=== PATIENT | male | born 1945 | race Caucasian/White ===

== ENCOUNTER 2022-09-26 18:34 | Emergency (ER) | payer MEDICARE, BC, SELFPAY ==
[2022-09-26 18:38] VITALS: BP 155/79; PULSE 72; RESP 16; TEMP 35.9; O2SAT 98; BMI 19.4
--- NOTE | 2022-09-26 18:50 | ED_ITS ---
HPI - Abdominal Pain General Time Seen by Provider: 18:50 Date Seen: 09/26/22 Chief Complaint: Abdominal Pain Stated Complaint: Abdominal Pain Time Seen by Provider: 09/26/22 18:50 Source: patient, RN notes reviewed and old records reviewed Mode of arrival: ambulatory Limitations: no limitations History of Present Illness HPI narrative: Mr. Josh aguilar is a very pleasant 77-year-old gentleman with a history of diverticulitis status post sigmoid removal, chronic anticoagulation with Xarelto, history of small intestinal bacterial overgrowth, who comes to the [facility] room for evaluation regarding abdominal pain. Patient notes that over the last 3-4 weeks he is experiencing 6-8 hours of epigastric and abdominal pain every 2-3 days. He states that this is associated with nausea but is not associated with any diarrhea. He has had an 8-10 lb weight loss in the past few months and has not tried to do that. He notes that he does not really have much of an appetite although he can eat but states when he eats too much it seems to flare the symptoms. The type of food he eats does not seem to matter. He is currently on omeprazole daily. He has not noticed any blood in his stool nor has he experienced any fever or chills. The pain does not radiate and he has not taken anything for pain at this time. One year ago patient develops nocturnal diarrhea that was fairly significant and was seen at the [facility] and subsequently [facility]. He underwent many tests and was diagnosed with small intestinal bacterial overgrowth. He was placed on an antibiotic for approximately 10 days in this did seem to help. He has been okay for the past 6 months. He had been tested for lactose intolerance as well as gluten sensitivity and this was negative. He has not seen his primary doctor for this. Related Data Allergies Allergy/AdvReac Type Severity Reaction Status Date / Time oxycodone AdvReac Intermediate Nausea Uncoded 09/26/22 18:44 Review of Systems Status of ROS Reports: 10 or more systems reviewed and unremarkable except as noted in History and below Narrative Last fall he had been experiencing nausea and some mild shortness of breath without chest pain with extensive activity. He had a full workup including angiogram that was negative at that time. Const Reports: change in weight; Denies: fever or chills Eyes Denies: change in vision ENMT Denies: throat pain, neck pain or difficulty swallowing Cardio Denies: chest pain Resp Denies: cough GI Reports: abdominal pain and nausea; Denies: vomiting, diarrhea, difficulty swallowing or blood in stool Denies: painful urination or urinary frequency Musculo Denies: back pain or neck pain Integ/Breast Denies: [facility] Social History service: Yes Exam Narrative: Exam Narrative: Patient is alert and oriented. Does not appear to be in any acute distress. Very well-spoken gentleman. External ears eyes nose clear. Heart is with regular rate and rhythm and lungs are clear in all lung olsen. Abdomen shows localized tenderness in the epigastrium without mass palpated. This is reproducible. Bowel sounds are present. Lower extremities without edema. Moving all extremities. Const: Vital Signs, click to edit/add: Vital Signs - 24 hr 09/26/22 18:38 Temperature 96.6 F L Pulse Rate [Pulse Oximeter] 72 Respiratory Rate 16 Blood Pressure [Ri ght Upper Arm] 155/79 H Pulse Oximetry 98 Oxygen Delivery Me thod Room Air Documenting provider has reviewed patient's vital signs: yes Course Course Hospital Course: Patient presents with 3-4 weeks of intermittent abdominal discomfort lasting 6-8 hours. This was usually occurring every 2-3 days. Is different from his intestinal overgrowth in that he actually has discomfort. Really no diarrhea at this time. He has also experienced in 8-10 lb weight loss. At this time differential diagnosis does include but is not limited to gastritis, pancreatitis, biliary colic, diverticulitis, colitis. Patient is agreeable to having IV placed, labs drawn to include a CBC, comprehensive panel, direct bilirubin, urinalysis, CRP. Will await these lab values and decide on imaging to include ultrasound versus CT. Reevaluation(s) Reevaluation #1: Given elevated creatinine we elected to do ultrasound but tech notes that she is having a very difficult time seeing any structures given the amount error and bowel. Will proceed with noncontrast CT. I did state that unfortunately we may not see a lot of detail as patient is fairly thin with low fat count. He may had need to have a abdominal CT with contrast in the future. Vital Signs Vital signs: Initial Vital Signs Temperature 96.6 F L 09/26/22 18:38 Temperature Source Temporal Artery Scan 09/26/22 18:38 Pulse Rate 72 09/26/22 18:38 Pulse Rhythm 09/26/22 18:38 Pulse Strength 3+ Normal 09/26/22 18:38 Respiratory Rate 16 09/26/22 18:38 Blood Pressure 155/79 H 09/26/22 18:38 Blood Pressure Mean 104 09/26/22 18:38 Blood Pressure Position Supine 09/26/22 18:38 Pulse Oximetry 98 09/26/22 18:38 Oxygen Delivery Method 09/26/22 18:38 Vital Signs Temperature 96.6 F L 09/26/22 18:38 Pulse Rate 72 09/26/22 18:38 Respiratory Rate 16 09/26/22 18:38 Blood Pressure 155/79 H 09/26/22 18:38 Pulse Oximetry 98 09/26/22 18:38 Oxygen Delivery Method 09/26/22 18:38 Temperature 96.6 F L 09/26/22 18:38 Pulse Rate 72 09/26/22 18:38 Respiratory Rate 16 09/26/22 18:38 Blood Pressure 155/79 H 09/26/22 18:38 Pulse Oximetry 98 09/26/22 18:38 Oxygen Delivery Method 09/26/22 18:38 MDM - Abdominal Pain MDM Narrative Medical decision making narrative: 1. Abdominal pain -of unknown etiology. However, patient does have a large amount of air on CT. I am wondering if he is having intermittent partial bowel obstructions based on his symptoms. No evidence of inflammation and his labs are normal at this time. He declines any pain medication of going home and states that he is actually feeling much better at this point. I will have him follow-up with [facility] as scheduled. In fact, I encouraged him to call and see if he can be on a cancellation list so he can have attention on an expedited basis. If however he has worsening symptoms including vomiting fever would ask that he return to the emergency room for further evaluation. 2. Hydronephrosis and hydroureter-no evidence of a stone or obstruction. Creatinine is 1.6 tonight with a previous value of 1.0 approximately 7 months ago. Patient, tells me that he has had elevated levels recently. I am not sure if this is related or not. Patient did receive 1 L normal saline. Did not have any increased discomfort with this. 2. Disposition-home. Return as needed. Medical Records Attestation: I reviewed the patient's medical records. Lab Data Attestation: I reviewed the patient's lab results. Labs: Lab Results 09/26/22 09/26/22 09/26/22 Range/Units 19:23 19:23 19:32 WBC 6.33 (4.50-11.00) K/uL RBC 3.95 L (4.30-5.90) m/uL Hgb 13.4 L (13.5-17.5) gm/dL Hct 39.2 (37.0-53.0) % MCV 99 (80-100) fL MCH 34 (26-34) pg MCHC 34 (32-36) gm/dL RDW Coeff of Leo 13.4 (11.5-15.5) % Plt Count 268 (140-440) K/uL Neut % (Auto) 68.8 (42.0-72.0) % Lymph % (Auto) 17.9 L (20-44) % [place] % (Auto) 10.1 (0.0-11.0) % Eos % (Auto) 2.8 (0.0-7.0) % Baso % (Auto) 0.2 (0.0-3.0) % Neut # (Auto) 4.36 (1.7-7.0) K/uL Lymph # (Auto) 1.10 (0.90-2.90) K/uL [place] # (Auto) 0.60 (0.00-0.90) K/UL Eos # (Auto) 0.18 (0.00-0.50) K/uL Baso # (Auto) 0.01 (0.00-0.30) K/uL Sodium 137 (135-149) mmol/L Potassium 4.6 (3.6-5.1) mmol/L Chloride 104 (96-114) mmol/L Carbon Dioxide 28 (20-32) mmol/L BUN 26 (7-30) mg/dL Creatinine 1.6 H (0.5-1.5) mg/dL Estimated Creat Clear 32.96 Estimated GFR 44 ml/min Glucose 102 (60-115) mg/dL Calcium 9.2 (8.4-10.6) mg/dL Total Bilirubin 0.8 (0.1-1.5) mg/dL Direct Bilirubin 0.2 (0.0-0.5) mg/dL AST 34 (12-35) U/L ALT 14 (4-50) U/L Alkaline Phosphatase 114 (40-150) U/L C-Reactive Protein 1.0 (0.5-1.0) mg/dL Total Protein 7.0 (6.0-8.3) g/dL Albumin 4.1 (3.3-5.0) g/dL Lipase 110 (23-300) U/L Urine Color Yellow (Yellow) Urine Appearance Clear (Clear) Urine pH 7.0 (5.0-8.5) Ur Specific [place] 1.020 (1.000-1.030) Urine Protein Trace A (Negative) Urine Glucose (UA) Negative (Negative) Urine Ketones Negative (Negative) Urine Blood Negative (Negative) Urine Nitrite Negative (Negative) Urine Bilirubin Negative (Negative) Urine Urobilinogen 1.0 (0.2-1.0) Ur Leukocyte Esterase Trace A (Negative) Urine RBC 0-2 (0-2) Urine WBC 5-10 A (0-5) Ur Squamous Epith Cells Few (None-Few) Urine Bacteria Few A (None) Imaging Data US - abdomen: Attestation: I have reviewed the pertinent imaging results. Radiologist's impression: Examination is limited by bowel gas and limited acoustic windows because of the high location of the liver under the ribs. The gallbladder is normal in appearance with no sign of cholelithiasis or acute cholecystitis. A sonographic Bradley sign is not present, with no pain over the gallbladder during ultrasound examination. The common bile duct is mildly increased in caliber at 7 mm, unchanged from the previous MRI. The pancreatic head and body were examined, and these are normal in appearance. The abdominal aorta and visualized portions of the inferior vena cava are normal in appearance. The liver shows no sign of mass or contour abnormality, and there is no sign of ascites. The main portal vein is patent with antegrade flow. The right kidney is poorly seen because of the limited acoustic windows. It is normal in size, measuring 9.8 centimeters in length. There is no sign of hydronephrosis or calculus. The left kidney has several echogenic structures in the interpolar region of the collecting system consistent with small calculi, not present on the previous CT. The left kidney is normal in size, measuring 10.1 centimeters in length. Hydronephrosis is not evident. There is a rounded echogenic nodule in or adjacent to the upper pole of the left kidney measuring 2.0 x 1.3 centimeters, not present on in the previous CT or MRI. Examination of the CT of the abdomen and pelvis without contrast from today shows no abnormality in this region. It is uncertain what this echogenic nodule represents, but the absence of any finding in this region on CT makes further follow-up unnecessary. The spleen is normal in appearance. IMPRESSION: Nothing seen to correlate with a history of epigastric pain, with examination limited by bowel gas and poor acoustic windows. Common bile duct mildly dilated at 7 millimeters, unchanged from the previous MRI. New mild left nephrolithiasis without hydronephrosis. Echogenic 2.0 centimeter nodule seen in or adjacent to the upper pole of the left kidney, but cannot be identified on either the current CT of the abdomen or the prior CT and MRI of the abdomen. This is probably an artifact. CT scan - abdomen: Attestation: I have reviewed the pertinent imaging results. Radiologist's impression: the abdomen, the unenhanced liver, spleen, pancreas, and adrenals are normal in appearance. There is new mild left hydronephrosis and proximal hydroureter without an obstructing lesion in the proximal ureter. This hydronephrosis is not seen on today`s ultrasound, the result of limited acoustic windows. There are new 1-2 millimeter nonobstructive calculi in the interpolar region of the left kidney. There is no sign of right hydronephrosis or hydroureter. There is no sign of right renal calculi. The gallbladder is normal in appearance. The abdominal aorta is normal in caliber with no sign of dilatation. There is no sign of retroperitoneal mass or adenopathy. The stomach, loops of small bowel, and colon in the abdomen are normal in appearance. In the pelvis, the appendix is nonvisualized, but there is no sign of an inflammatory process in the area of the appendix. There is progression of sigmoid diverticulosis, previously mild and now severe without evidence of diverticulitis. The loops of small bowel and rectum in the pelvis are otherwise normal in appearance. The prostate has increased in size and is now moderately enlarged, but is otherwise normal in appearance. The urinary bladder is normal in appearance. There is no sign of pelvic or inguinal mass or adenopathy. There is no sign of free air or free fluid in the abdomen or pelvis. There is stable mild linear density in the posterior lower lobes consistent with scarring from previous inflammatory disease. 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 The heart is normal in size. There is stable mild scoliosis of the lumbar spine convex towards the left. There is stable grade 1 anterior subluxation of L5 on S1 related to bilateral pars interarticularis defects. There is stable prominent L5-S1 disc degenerative disease. IMPRESSION: CT of the abdomen shows new mild left hydronephrosis and proximal hydroureter without obstructing calculus or mass. This is not evident on today`s ultrasound because of limited acoustic windows. New minimal nonobstructive left nephrolithiasis. CT of the pelvis shows prominent sigmoid diverticulosis with no sign of diverticulitis, increased compared to the previous study. Increased enlargement of the prostate, now moderate. Discharge Plan Discharge Clinical Impression: Hydronephrosis, Abdominal pain Patient Disposition: Home, Self-Care Condition: Improved Additional Instructions: Follow-up with your primary MD or Shalonda LEPE about your continued abdominal pain. On both the CT and ultrasound we do not have reason why you are experiencing this. However, if you have worsening pain, vomiting, fever I would like you to seek medical attention. New findings include the fact that you have mild dilation of the kidney and upper portion of the ureter. There does not appear to be a stone that is causing this however. You may need to follow-up with urology in regards to this. Return as needed. Follow Up/Referrals: Keron Murry MD [Primary Care Provider] - Stand Alone Forms: Wanna [employer] Info Instructions
[2022-09-26 19:30] LABS: Basophils Absolute Auto 0.01 K/uL (0.00-0.30); Basophils Percent Auto 0.2 % (0.0-3.0); Eosinophils Absolute Auto 0.18 K/uL (0.00-0.50); Eosinophils Percent Auto 2.8 % (0.0-7.0); Hematocrit 39.2 % (37.0-53.0); Hemoglobin* 13.4 gm/dL (13.5-17.5); Immature Granulocytes Abs Auto 0.01 K/uL (0.00-0.30); Immature Granulocytes Pct Auto 0.2 %; Lymphocytes Percent Auto 17.9 % (20-44); Mean Corpuscular HGB Conc 34 gm/dL (32-36); Mean Corpuscular Hemoglobin 34 pg (26-34); Mean Corpuscular Volume 99 fL (80-100); Monocytes Percent Auto 10.1 % (0.0-11.0); Neutrophils Absolute Auto 4.36 K/uL (1.7-7.0); Neutrophils Percent Auto 68.8 % (42.0-72.0); Platelet Count* 268 K/uL (140-440); RDW Coefficient of Variation % 13.4 % (11.5-15.5); Red Blood Count 3.95 m/uL (4.30-5.90); White Blood Count* 6.33 K/uL (4.50-11.00)
[2022-09-26 19:33] LABS: Slide Review Reflex No
[2022-09-26 19:43] LABS: Albumin* 4.1 g/dL (3.3-5.0); Chloride* 104 mmol/L (96-114); Sodium* 137 mmol/L (135-149)
[2022-09-26 19:44] LABS: Potassium* 4.6 mmol/L (3.6-5.1)
[2022-09-26 19:44] LABS: Appearance Urine Clear (Clear); Bilirubin Urine Negative (Negative); Blood Urine Negative (Negative); Color Urine Yellow (Yellow); Glucose Urine Negative (Negative); Ketones Urine Negative (Negative); Leukocyte Esterase Urine Trace (Negative); Nitrite Urine Negative (Negative); Protein Urine Trace (Negative)
[2022-09-26 19:46] LABS: Bilirubin Direct* 0.2 mg/dL (0.0-0.5); Bilirubin Total* 0.8 mg/dL (0.1-1.5); Carbon Dioxide* 28 mmol/L (20-32); Creatinine* 1.6 mg/dL (0.5-1.5); Est. Creatinine Clearance* 32.96; Estimated Glomerular Filt Rate 44 ml/min
[2022-09-26 19:47] LABS: Alanine Aminotransferase* 14 U/L (4-50); Alkaline Phosphatase* 114 U/L (40-150); Aspartate Amino Transferase* 34 U/L (12-35); Blood Urea Nitrogen* 26 mg/dL (7-30); Calcium* 9.2 mg/dL (8.4-10.6); Glucose* 102 mg/dL (60-115); Lipase* 110 U/L (23-300)
--- NOTE | 2022-09-26 20:05 | CRLHL7_ITS ---
For Patients: As a result of the Century Cures Act, medical imaging exams and procedure reports are released immediately into your electronic medical record. You may view this report before your referring provider. If you have questions, please contact your health care provider. INDICATION: Epigastric pain. COMPARISON: CT of the abdomen and pelvis from 03/30/2016. MR of the abdomen from 04/03/2016. TECHNIQUE: Ultrasound examination of the abdomen was performed. FINDINGS: Examination is limited by bowel gas and limited acoustic windows because of the high location of the liver under the ribs. The gallbladder is normal in appearance with no sign of cholelithiasis or acute cholecystitis. A sonographic Bradley sign is not present, with no pain over the gallbladder during ultrasound examination. The common bile duct is mildly increased in caliber at 7 mm, unchanged from the previous MRI. The pancreatic head and body were examined, and these are normal in appearance. The abdominal aorta and visualized portions of the inferior vena cava are normal in appearance. The liver shows no sign of mass or contour abnormality, and there is no sign of ascites. The main portal vein is patent with antegrade flow. The right kidney is poorly seen because of the limited acoustic windows. It is normal in size, measuring 9.8 centimeters in length. There is no sign of hydronephrosis or calculus. The left kidney has several echogenic structures in the interpolar region of the collecting system consistent with small calculi, not present on the previous CT. The left kidney is normal in size, measuring 10.1 centimeters in length. Hydronephrosis is not evident. There is a rounded echogenic nodule in or adjacent to the upper pole of the left kidney measuring 2.0 x 1.3 centimeters, not present on in the previous CT or MRI. Examination of the CT of the abdomen and pelvis without contrast from today shows no abnormality in this region. It is uncertain what this echogenic nodule represents, but the absence of any finding in this region on CT makes further follow-up unnecessary. The spleen is normal in appearance. IMPRESSION: Nothing seen to correlate with a history of epigastric pain, with examination limited by bowel gas and poor acoustic windows. Common bile duct mildly dilated at 7 millimeters, unchanged from the previous MRI. New mild left nephrolithiasis without hydronephrosis. Echogenic 2.0 centimeter nodule seen in or adjacent to the upper pole of the left kidney, but cannot be identified on either the current CT of the abdomen or the prior CT and MRI of the abdomen. This is probably an artifact. Dictated by Dieudonne Blanton MD @ 09/26/2022 9:54:44 PM (Electronically Signed)
[2022-09-26] MEDS: 0.9 % SODIUM CHLORIDE 1000 ml 1,000 ML IV ×2 (20:22→20:49)
[2022-09-26 20:37] LABS: Bacteria Urine Few; RBC Urine 0-2 (0-2); Squamous Epithelial Cell Urine Few (None-Few)
--- NOTE | 2022-09-26 21:22 | CRLHL7_ITS ---
For Patients: As a result of the Century Cures Act, medical imaging exams and procedure reports are released immediately into your electronic medical record. You may view this report before your referring provider. If you have questions, please contact your health care provider. INDICATION: Abdominal pain. Previous history of hernia repair, appendectomy, sigmoid colon resection. COMPARISON: Ultrasound of the abdomen from today. MR of the abdomen from 04/03/2016. CT of the abdomen and pelvis without contrast from 03/30/2016 TECHNIQUE: CT examination of the abdomen and pelvis was performed without contrast enhancement using 3 mm thick axial sections from the lung bases through the pubic symphysis. Oral contrast was not administered. Please note that all CT scans at this facility use dose modulation, iterative reconstruction, and/or weight-based dosing when appropriate to reduce radiation dose to as low as reasonably achievable. FINDINGS: In the abdomen, the unenhanced liver, spleen, pancreas, and adrenals are normal in appearance. There is new mild left hydronephrosis and proximal hydroureter without an obstructing lesion in the proximal ureter. This hydronephrosis is not seen on today`s ultrasound, the result of limited acoustic windows. There are new 1-2 millimeter nonobstructive calculi in the interpolar region of the left kidney. There is no sign of right hydronephrosis or hydroureter. There is no sign of right renal calculi. The gallbladder is normal in appearance. The abdominal aorta is normal in caliber with no sign of dilatation. There is no sign of retroperitoneal mass or adenopathy. The stomach, loops of small bowel, and colon in the abdomen are normal in appearance. In the pelvis, the appendix is nonvisualized, but there is no sign of an inflammatory process in the area of the appendix. There is progression of sigmoid diverticulosis, previously mild and now severe without evidence of diverticulitis. The loops of small bowel and rectum in the pelvis are otherwise normal in appearance. The prostate has increased in size and is now moderately enlarged, but is otherwise normal in appearance. The urinary bladder is normal in appearance. There is no sign of pelvic or inguinal mass or adenopathy. There is no sign of free air or free fluid in the abdomen or pelvis. There is stable mild linear density in the posterior lower lobes consistent with scarring from previous inflammatory disease. 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 The heart is normal in size. There is stable mild scoliosis of the lumbar spine convex towards the left. There is stable grade 1 anterior subluxation of L5 on S1 related to bilateral pars interarticularis defects. There is stable prominent L5-S1 disc degenerative disease. IMPRESSION: CT of the abdomen shows new mild left hydronephrosis and proximal hydroureter without obstructing calculus or mass. This is not evident on today`s ultrasound because of limited acoustic windows. New minimal nonobstructive left nephrolithiasis. CT of the pelvis shows prominent sigmoid diverticulosis with no sign of diverticulitis, increased compared to the previous study. Increased enlargement of the prostate, now moderate. Please note that all CT scans at this facility use dose modulation, iterative reconstruction, and/or weight-based dosing when appropriate to reduce radiation dose to as low as reasonably achievable. Dictated by Dieudonne Blanton MD @ 09/26/2022 10:04:12 PM (Electronically Signed)
[2022-09-26 22:34] VITALS: BP 155/79; PULSE 72; RESP 16; TEMP 35.9
== END 2022-09-26 22:40 | disposition home or self-care (01) ==
PROVIDERS: Emergency Provider Family Medicine; PCP Family Medicine
DX: N13.30 Unspecified hydronephrosis (principal)
CPT/HCPCS: 36415; 74176; 76700; 80053; 81001; 82248; 83690; 85025; 86140; 87086; 99284; J7030

== ENCOUNTER 2022-10-06 09:26 | Emergency (ER) | payer MEDICARE, BC, SELFPAY ==
[2022-10-06 09:33] VITALS: BP 161/91; PULSE 68; RESP 18; TEMP 36; O2SAT 99; BMI 19.4
--- NOTE | 2022-10-06 09:51 | ED.GENADULT ---
HPI - General Adult General Chief complaint: Epistaxis/Nosebleed Stated complaint: nosebleed Time Seen by Provider: 10/06/22 09:42 Source: patient Mode of arrival: ambulatory Limitations: no limitations History of Present Illness HPI narrative: 77-year-old male, on Xarelto, coming in today complaining of nosebleed that has been going on for about 1 hour. He is unable to get it to stop. He denies feeling dizzy or lightheaded. He states that a couple weeks ago he had a small nosebleed on the same side but it did resolve. He does not have a history of nosebleeds. He is on Xarelto for atrial fibrillation. Related Data Home Medications Medication Instructions Recorded Confirmed amiodarone 200 mg tablet 100 mg PO DAILY 10/06/22 10/06/22 atorvastatin 40 mg tablet 40 mg PO DAILY 10/06/22 10/06/22 nifedipine 30 mg tablet,extended 30 mg PO DAILY 10/06/22 release 24 hr nifedipine 60 mg tablet,extended 60 mg PO DAILY 10/06/22 10/06/22 release 24 hr pantoprazole 40 mg tablet,delayed 40 mg PO DAILY 10/06/22 10/06/22 release rifaximin 550 mg tablet (Xifaxan) 550 mg PO 3XD 10/06/22 10/06/22 rivaroxaban 15 mg tablet (Xarelto) 15 mg PO DAILY 10/06/22 10/06/22 Allergies Allergy/AdvReac Type Severity Reaction Status Date / Time oxycodone AdvReac Intermediate Nausea Uncoded 09/26/22 18:44 Review of Systems Status of ROS: Reports: 6 or more systems reviewed and unremarkable except as noted in History and below [facility] Social History service: Yes Exam Narrative: Exam Narrative: Well-nourished well-developed patient in no acute distress. Alert and oriented. Answers questions appropriately. Mood and affect are appropriate. Thoughts are goal oriented and rational. No tangential or magical thinking noted. Patient speaks in full sentences without needing to catch his breath. HEENT: Normocephalic atraumatic. Pupils are equally round reactive to light. Extraocular muscles are intact. Conjunctivae are moist without any icterus noted, not pale. Moist mucous membranes. Posterior pharynx is normal. He does have blood in the interior nares on the right. Nothing on the left. I do not see any obvious bleeding vessel. Skin: Well perfused without any obvious rashes, he is not pale. Const: Vital Signs, click to edit/add: Vital Signs - 24 hr 10/06/22 09:33 Temperature 96.8 F L Pulse Rate [Left P ulse Oximeter] 68 Respiratory Rate 18 Blood Pressure [Le ft Upper Arm] 161/91 H Pulse Oximetry 99 Oxygen Delivery Me thod Room Air Course Course Hospital Course: Patient did have a nose clip on for approximately 10 minutes and we took that off he had slow oozing still coming from the right nostril. Therefore we discussed her options and proceeded with a nasal rocket. Nasal rocket was inserted into the right nares without difficulty. Vital Signs Vital signs: Initial Vital Signs Temperature 96.8 F L 10/06/22 09:33 Temperature Source Temporal Artery Scan 10/06/22 09:33 Pulse Rate 68 10/06/22 09:33 Pulse Rhythm 10/06/22 09:33 Pulse Strength 3+ Normal 10/06/22 09:33 Respiratory Rate 18 10/06/22 09:33 Blood Pressure 161/91 H 10/06/22 09:33 Blood Pressure Mean 114 10/06/22 09:33 Blood Pressure Position Sitting 10/06/22 09:33 Pulse Oximetry 99 10/06/22 09:33 Oxygen Delivery Method 10/06/22 09:33 Vital Signs Temperature 96.8 F L 10/06/22 09:33 Pulse Rate 68 10/06/22 09:33 Respiratory Rate 18 10/06/22 09:33 Blood Pressure 161/91 H 10/06/22 09:33 Pulse Oximetry 99 10/06/22 09:33 Oxygen Delivery Method 10/06/22 09:33 Temperature 96.8 F L 10/06/22 09:33 Pulse Rate 68 10/06/22 09:33 Respiratory Rate 18 10/06/22 09:33 Blood Pressure 161/91 H 10/06/22 09:33 Pulse Oximetry 99 10/06/22 09:33 Oxygen Delivery Method 10/06/22 09:33 Medical Decision Making MDM Narrative Medical decision making narrative: 77-year-old male with epistaxis. Status post nasal rocket application per above. Patient will follow-up with primary care in the next couple days to have that removed and follow-up with ENT as needed. Discharge Plan Discharge Clinical Impression: Epistaxis Patient Disposition: Home, Self-Care Condition: Improved Additional Instructions: Follow-up with primary care provider on Friday or Friday of this week to have your nasal stuffing removed. You may need to follow-up with Ear, nose and throat specialist for further management if nose bleed occurs again. Prescriptions: No Action nifedipine 30 mg tablet extended release 24hr 30 mg PO DAILY atorvastatin 40 mg tablet 40 mg PO DAILY amiodarone 200 mg tablet 100 mg PO DAILY Hold Instructions: Order Change nifedipine 60 mg tablet extended release 24hr 60 mg PO DAILY pantoprazole 40 mg tablet,delayed release (DR/EC) 40 mg PO DAILY Xifaxan 550 mg tablet 550 mg PO 3XD Xarelto 15 mg tablet 15 mg PO DAILY Follow Up/Referrals: Keron Murry MD [Primary Care Provider] - Stand Alone Forms: [employer] Info Instructions
== END 2022-10-06 10:33 | disposition home or self-care (01) ==
PROVIDERS: Emergency Provider Family Medicine; PCP Family Medicine
DX: R04.0 Epistaxis (principal)
CPT/HCPCS: 99284

== ENCOUNTER 2022-10-06 19:14 | Emergency (ER) | payer MEDICARE, BC, SELFPAY ==
[2022-10-06 19:17] VITALS: BP 144/74; PULSE 71; RESP 16; TEMP 35.7; O2SAT 100; BMI 19.4
--- NOTE | 2022-10-06 20:53 | ED_ITS ---
History of Present Illness General Chief Complaint: Epistaxis/Nosebleed Stated Complaint: Nose still bleeding Time Seen by Provider: 10/06/22 20:03 History of Present Illness HPI Narrative: 77-year-old man returning to the emergency department complaint of persistent bleeding from his nose. Was packed with what looks to have been Merocel this morning for right nare bleed. He is anticoagulated with a DOAC. Is not feeling lightheaded or short of breath. Just feels like he is going to gag from what is in his throat and it sounds as though this is the most distressing aspect. There is no bleeding coming anteriorly. Related Data Home Medications Medication Instructions Recorded Confirmed amiodarone 200 mg tablet 100 mg PO DAILY 10/06/22 10/06/22 atorvastatin 40 mg tablet 40 mg PO DAILY 10/06/22 10/06/22 nifedipine 30 mg tablet,extended 30 mg PO DAILY 10/06/22 release 24 hr nifedipine 60 mg tablet,extended 60 mg PO DAILY 10/06/22 10/06/22 release 24 hr pantoprazole 40 mg tablet,delayed 40 mg PO DAILY 10/06/22 10/06/22 release rifaximin 550 mg tablet (Xifaxan) 550 mg PO 3XD 10/06/22 10/06/22 rivaroxaban 15 mg tablet (Xarelto) 15 mg PO DAILY 10/06/22 10/06/22 Previous Rx's Medication Instructions Recorded amoxicillin 500 mg capsule 500 mg PO BID 4 days #8 caps 10/06/22 Allergies Allergy/AdvReac Type Severity Reaction Status Date / Time oxycodone AdvReac Severe Verified 10/06/22 19:19 Review of Systems Status of ROS: Reports: 6 or more systems reviewed and unremarkable except as noted in History and below [facility] Social History Smoking Status: Never smoker Do you use any of these nicotine containing products: None Second hand tobacco smoke exposure: No How often do you have a drink containing alcohol: never How often do you have six or more drinks on one occasion: Never AUDIT-C Alcohol total score: 0 Non-prescribed substance use: denies use service: Yes Exam Narrative: Exam Narrative: pleasant. NAD. Breathing easily. Well perfused. Cranial nerves 2-12 intact. Merocel packing in place in right nare. There is no bleeding anteriorly. looking at the posterior oropharynx there does not appear to be active bleeding though there is a small string of clot. Const: Vital Signs, click to edit/add: Vital Signs - 24 hr 10/06/22 19:17 Temperature 96.2 F L Pulse Rate [Femora l] 71 Respiratory Rate 16 Blood Pressure [Ri ght Upper Arm] 144/74 H Pulse Oximetry 100 Oxygen Delivery Me thod Room Air Documenting provider has reviewed patient's vital signs: yes Course Vital Signs Vital signs: Initial Vital Signs Temperature 96.2 F L 10/06/22 19:17 Temperature Source Temporal Artery Scan 10/06/22 19:17 Pulse Rate 71 10/06/22 19:17 Pulse Rhythm 10/06/22 19:17 Pulse Strength 3+ Normal 10/06/22 19:17 Respiratory Rate 16 10/06/22 19:17 Blood Pressure 144/74 H 10/06/22 19:17 Blood Pressure Mean 97 10/06/22 19:17 Blood Pressure Position Sitting 10/06/22 19:17 Pulse Oximetry 100 10/06/22 19:17 Oxygen Delivery Method 10/06/22 19:17 Vital Signs Temperature 96.2 F L 10/06/22 19:17 Pulse Rate 71 10/06/22 19:17 Respiratory Rate 16 10/06/22 19:17 Blood Pressure 144/74 H 10/06/22 19:17 Pulse Oximetry 100 10/06/22 19:17 Oxygen Delivery Method 10/06/22 19:17 Temperature 96.2 F L 10/06/22 19:17 Pulse Rate 71 10/06/22 19:17 Respiratory Rate 16 10/06/22 19:17 Blood Pressure 144/74 H 10/06/22 19:17 Pulse Oximetry 100 10/06/22 19:17 Oxygen Delivery Method 10/06/22 19:17 MDM - Epistaxis MDM Narrative Medical decision making narrative: I proposed options of removing and repacking though in the meantime would also consider for cautery or simply removing the clot that seems to be present after anesthetic spray; 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 He opts to try removal of this clot. I returned with anesthetic spray. On reexamination he does have trace amount of new clot. All of this is very small amount. Sprays throat and remove the 2 small strings of clot. Of course is hard to assess with anesthesia whether not this is made a difference. Will rest here for a little bit and we will reassess. On reassessment notes himself to be feeling better and ready for departure. Then daughter arrives and there is some note of some blood anteriorly. I assess this to be nasolacrimal fluid that is red-stained. Does not appear to be active bleeding in the posterior oropharynx. Again offered to remove current packing and cauterize or pack with balloon packing though I think as is is acceptable. Do think though that should be initiated on prophylactic antibiotic. Understand history of intestinal overgrowth infection. See patient discharge plan Medical Records Attestation: I reviewed the patient's medical records. Discharge Plan Discharge Clinical Impression: Epistaxis Patient Disposition: Home, Self-Care Condition: Improved Additional Instructions: can gargle if you are feeling some irritation in your throat. If bleeding really seems to be increasing though please return to the emergency department. I would be seen in clinic on Friday or Friday for consideration for removal of packing. Amoxicillin will be waiting for you at the pharmacy. Prescriptions: New amoxicillin 500 mg capsule 500 mg PO BID 4 Days Qty: 8 0RF No Action nifedipine 30 mg tablet extended release 24hr 30 mg PO DAILY atorvastatin 40 mg tablet 40 mg PO DAILY amiodarone 200 mg tablet 100 mg PO DAILY Hold Instructions: Order Change nifedipine 60 mg tablet extended release 24hr 60 mg PO DAILY pantoprazole 40 mg tablet,delayed release (DR/EC) 40 mg PO DAILY Xifaxan 550 mg tablet 550 mg PO 3XD Xarelto 15 mg tablet 15 mg PO DAILY Follow Up/Referrals: Keron Murry MD [Primary Care Provider] - Stand Alone Forms: [employer] Info Instructions
--- NOTE | 2022-10-06 21:57 | ED.NURSE ---
Pt's nose packed by MD. Pt having a scant amount of lacrimal, red-tinged discharge. MD at bedside to reassess. Nasal sling applied with gauze.
== END 2022-10-06 22:00 | disposition home or self-care (01) ==
PROVIDERS: Emergency Provider Family Medicine; PCP Family Medicine
DX: R04.0 Epistaxis (principal)
CPT/HCPCS: 30901; 99283; 99284

== ENCOUNTER 2022-11-15 14:20 | Outpatient (CLI) | payer MEDICARE, BC, SELFPAY ==
--- NOTE | 2022-11-15 14:30 | CRLHL7_ITS ---
For Patients: As a result of the Century Cures Act, medical imaging exams and procedure reports are released immediately into your electronic medical record. You may view this report before your referring provider. If you have questions, please contact your health care provider. INDICATION: Weight loss. Abdominal bloating. Nausea. Upper abdominal pain. TECHNIQUE : PA and lateral chest x-ray. FINDINGS: Clear lungs. Normal heart size. No evidence for lymphadenopathy. No pleural effusions. 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 Coronary artery calcifications and/or coronary artery stents. The included skeleton is unremarkable. IMPRESSION: Negative chest x-ray. Dictated by Mike Bauer MD @ 11/15/2022 3:45:57 PM (Electronically Signed)
== END 2022-11-15 14:21 | disposition home or self-care (01) ==
LOC: RAD 14:20
PROVIDERS: PCP Family Medicine; Visit Provider Internal Medicine Gastroenterology
DX: R14.0 Abdominal distension (gaseous) (principal); R63.4 Abnormal weight loss; R11.0 Nausea
CPT/HCPCS: 71046

== ENCOUNTER 2023-04-17 03:26 | Emergency (ER) | payer MEDICARE, BC, SELFPAY ==
[2023-04-17 03:32] VITALS: BP 148/116; PULSE 71; RESP 20; TEMP 37.1; O2SAT 95; BMI 19.4
--- NOTE | 2023-04-17 03:59 | CRLHL7_ITS ---
For Patients: As a result of the Century Cures Act, medical imaging exams and procedure reports are released immediately into your electronic medical record. You may view this report before your referring provider. If you have questions, please contact your health care provider. INDICATION: Worsening LUQ pain, suspect obstruction vs diverticulitis TECHNIQUE: CT abdomen and pelvis with 66 cc Isovue 370 IV contrast. COMPARISON: CT abdomen pelvis September 26, 2022 FINDINGS: The liver is normal in size, shape and attenuation. Gallbladder and biliary tree are normal. The spleen, adrenal glands and pancreas are within normal limits. Mild bilateral renal cortical atrophy. No evidence of hydronephrosis. Decompressed bladder. Moderate prostatomegaly is again noted. The stomach is decompressed. No evidence of bowel obstruction. Moderate colonic diverticulosis. There is no discrete evidence of acute diverticulitis although there is a small amount of free fluid within the right lower pelvis adjacent to some colonic diverticula. This fluid is nonspecific chronic mild diverticulitis it of the distal sigmoid cannot entirely be excluded. Increased conspicuity of missing of the mesentery with mildly prominent mesenteric lymph nodes, measuring up to 1.2 cm in short axis. No evidence of free air. Abdominal aorta of normal caliber with mild aortoiliac atherosclerosis. Linear bibasilar atelectasis. No acute fracture or aggressive osseous lesion. Redemonstration of chronic grade 1 anterolisthesis of L5 on S1. IMPRESSION: 1. Increased conspicuity of missing of the mesentery with mildly prominent mesenteric lymph nodes, measuring up to 1.2 cm in short axis. 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 2. Moderate colonic diverticulosis. There is no discrete evidence of acute diverticulitis although there is a small amount of free fluid within the right lower pelvis adjacent to some colonic diverticula. This fluid is nonspecific although a mild diverticulitis of the distal sigmoid cannot entirely be excluded (although felt less likely). 3. No evidence of bowel obstruction. 4. Moderate prostatomegaly. Please note that all CT scans at this facility use dose modulation, iterative reconstruction, and/or weight-based dosing when appropriate to reduce radiation dose to as low as reasonably achievable. Dictated by Ziggy Hansen MD @ 04/17/2023 5:35:06 AM (Electronically Signed)
--- NOTE | 2023-04-17 04:05 | ED_ITS ---
HPI - General Adult General Chief complaint: Abdominal Pain Stated complaint: abdominal pain Time Seen by Provider: 04/17/23 03:38 Source: patient Mode of arrival: ambulatory Limitations: no limitations History of Present Illness HPI narrative: 78-year-old male with history of multiple abdominal surgeries presents to the emergency department with 2 days of worsening left upper quadrant area pain. Bowels with increased diarrhea for the past several days which is not terribly uncommon for him. He has a history of small intestinal bacterial overgrowth and has managed with Gastroenterology regarding this. He restarted antibiotic therapy for this a few days ago, per Gastroenterology. Symptoms have been worsening despite the antibiotic. He has not had any vomiting, no blood in his stools. He really does not endorse any nausea. He tried taking 2 Tylenol at dinnertime which is approximately 10 hours prior to arrival with no significant improvement in symptoms. No injury or trauma. Pain is achy and constant. No exacerbating or alleviating factors. He does have a history of diverticulitis, underwent what sounds like a sigmoid resection 20+ years ago. Has not had any episodes of diverticulitis since. He has also had an appendectomy. He notes no fevers. He is anticoagulated on Xarelto because of his AFib, no recent changes to his cardiac medications. No pertinent travel. No known sick contacts. No urinary changes. Past medical history notable for AFib, hyperlipidemia, small bowel bacterial overgrowth. Home medications are nifedipine, Xarelto, atorvastatin, pantoprazole. Allergies are to oxycodone which is an intolerance. Nonsmoker. ROS notable for the GI symptoms as above, otherwise denies times 12 systems. Related Data Home Medications Medication Instructions Recorded Confirmed amiodarone 200 mg tablet 100 mg PO DAILY 10/06/22 04/17/23 atorvastatin 40 mg tablet 40 mg PO DAILY 10/06/22 04/17/23 nifedipine 30 mg tablet,extended 30 mg PO DAILY 10/06/22 04/17/23 release 24 hr nifedipine 60 mg tablet,extended 60 mg PO DAILY 10/06/22 04/17/23 release 24 hr pantoprazole 40 mg tablet,delayed 40 mg PO DAILY 10/06/22 04/17/23 release rifaximin 550 mg tablet (Xifaxan) 550 mg PO 3XD 10/06/22 04/17/23 rivaroxaban 15 mg tablet (Xarelto) 15 mg PO DAILY 10/06/22 04/17/23 Allergies Allergy/AdvReac Type Severity Reaction Status Date / Time oxycodone AdvReac Severe Verified 04/17/23 04:57 [facility] Medical History Small intestinal bacterial overgrowth (SIBO) ?K63.89 - Other specified diseases of intestine (ICD-10) Acute diverticulitis ?K57.92 - Diverticulitis of intestine, part unspecified, without perforation or abscess without bleeding (ICD-10) Surgical History History of bowel resection ?Z90.49 - Acquired absence of other specified parts of digestive tract (ICD- 10) History of appendectomy ?Z90.49 - Acquired absence of other specified parts of digestive tract (ICD- 10) Social History Smoking Status: Never smoker Do you use any of these nicotine containing products: None Second hand tobacco smoke exposure: No How often do you have a drink containing alcohol: never How often do you have six or more drinks on one occasion: Never AUDIT-C Alcohol total score: 0 Non-prescribed substance use: denies use service: Yes Exam Const: Vital Signs, click to edit/add: Vital Signs - 24 hr 04/17/23 03:32 Temperature 98.7 F Pulse Rate [Pulse Oximeter] 71 Respiratory Rate 20 Blood Pressure [Ri ght Upper Arm] 148/116 H Pulse Oximetry 95 Oxygen Delivery Me thod Room Air Documenting provider has reviewed patient's vital signs: yes Common normals: no apparent distress and alert General appearance: cooperative, comfortable and well kempt Orientation/consciousness: Yes awake Other: Excellent historian, nontoxic appearing. HENMT: Common normals: normocephalic Head and scalp: normocephalic Face and sinus: normal facial exam Mouth: oral and palatal mucosa normal Eye: Common normals: conjunctivae normal General eye: normal appearance of both eyes Conjunctiva: conjunctiva(e) normal Neck & C-Spine: Common normals: no lymphadenopathy General: normal visual inspection Resp: Common normals: normal respiratory effort, no use of accessory muscles and clear to auscultation bilaterally Effort & inspection: able to speak in complete sentences Auscultation: clear to auscultation bilaterally Cardio: Common normals: no murmurs Other: Irregularly irregular but positive S1 and S2 with no gallop. No murmur. GI: Other: Normal to inspection, nondistended. Bowel sounds are somewhat hyperactive, especially in the right upper quadrant. He is tender to palpation the left upper quadrant with some mild guarding present but no rebound tenderness. No obvious mass. Surgical scarring is consistent with reported history. : Common normals: no CVA tenderness Bladder/kidney exam: no CVA tenderness Back & Pelvis: Common normals: no CVA tenderness Neuro: Sensorium/orientation: awake and alert Speech: speech normal Motor exam: no movement abnormalities noted Psych: Appearance: well kempt Attitude: engaged Activity/motor behavior: appropriate eye contact Attention/concentration: attention grossly intact Memory/cognition: memory grossly intact Insight: insight good Judgement: judgment good Skin: Common normals: no rashes or lesions noted General skin exam: no rashes or lesions noted Course Course ED Course: Differential diagnosis including small-bowel obstruction, diverticulitis, volvulus, pancreatitis, gallbladder disease, musculoskeletal etiology, ischemic bowel, among others. Recommend IV placement, a L of normal saline, oral hydromorphone for pain, basic labs including lactate, comprehensive metabolic panel, lipase, CRP, CBC. CT scan of the abdomen and pelvis. Await findings. Reevaluation(s) Time of Reevaluation #1: 05:46 Reevaluation #1: Reviewed lab and CT findings with patient. Pain improved after Toradol. 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 Defer to his specialty team in determining long-term plan. Copy of CT report given to patient for follow-up. He will communicate with his GI team regarding next steps and plan of care but no emergent treatment is necessary at this time. Counseled on Tylenol, alarm symptoms that would warrant ED presentation. He verbalizes understanding and agreement. All questions answered. Vital Signs Vital signs: Initial Vital Signs Temperature 98.7 F 04/17/23 03:32 Temperature Source Temporal Artery Scan 04/17/23 03:32 Pulse Rate 71 04/17/23 03:32 Pulse Rhythm Regular 04/17/23 03:32 Respiratory Rate 20 23 03:32 Blood Pressure 148/116 H 04/17/23 03:32 Blood Pressure Mean 126 H 04/17/23 03:32 Blood Pressure Position Sitting 04/17/23 03:32 Pulse Oximetry 95 04/17/23 03:32 Oxygen Delivery Method Room Air 04/17/23 03:32 Vital Signs Temperature 98.7 F 04/17/23 03:32 Pulse Rate 71 04/17/23 03:32 Respiratory Rate 04/17/23 03:32 Blood Pressure 148/116 H 04/17/23 03:32 Pulse Oximetry 95 04/17/23 03:32 Oxygen Delivery Method Room Air 04/17/23 03:32 Temperature 98.7 F 04/17/23 03:32 Pulse Rate 71 04/17/23 03:32 Respiratory Rate 20 04/17/23 03:32 Blood Pressure 148/116 H 04/17/23 03:32 Pulse Oximetry 95 04/17/23 03:32 Oxygen Delivery Method Room Air 04/17/23 03:32 Medical Decision Making Lab Data Labs: Lab Results 04/17/23 04/17/23 04/17/23 Range/Units 04:00 04:05 04:50 WBC 7.52 (4.50-11.00) K/uL RBC 4.28 L (4.30-5.90) m/uL Hgb 14.1 (13.5-17.5) gm/dL Hct 41.8 (37.0-53.0) % MCV 98 (80-100) fL MCH 33 (26-34) pg MCHC 34 (32-36) gm/dL RDW Coeff of Leo 13.1 (11.5-15.5) % Plt Count 217 (140-440) K/uL Neut % (Auto) 69.0 (42.0-72.0) % Lymph % (Auto) 16.2 L (20-44) % [place] % (Auto) 9.7 (0.0-11.0) % Eos % (Auto) 4.7 (0.0-7.0) % Baso % (Auto) 0.4 (0.0-3.0) % Neut # (Auto) 5.19 (1.7-7.0) K/uL Lymph # (Auto) 1.20 (0.90-2.90) K/uL [place] # (Auto) 0.70 (0.00-0.90) K/UL Eos # (Auto) 0.35 (0.00-0.50) K/uL Baso # (Auto) 0.03 (0.00-0.30) K/uL Abs Immat Gran (auto) 0.00 (0.00-0.30) K/uL Imm/Tot Granulo (auto) 0.0 % Sodium 140 (135-149) mmol/L Potassium 4.1 (3.6-5.1) mmol/L Chloride 106 (96-114) mmol/L Carbon Dioxide 28 (20-32) mmol/L Anion Gap 6 L (7-15) mEq/L BUN 22 (7-30) mg/dL Creatinine 1.0 (0.5-1.5) mg/dL Estimated Creat Clear 51.88 Estimated GFR 77 ml/min Glucose 95 (60-115) mg/dL Lactate 0.6 (0.5-1.9) mmol/L Calcium 9.3 (8.4-10.6) mg/dL Total Bilirubin 0.6 (0.1-1.5) mg/dL AST 32 (12-35) U/L ALT 13 (4-50) U/L Alkaline Phosphatase 99 (40-150) U/L C-Reactive Protein < 0.5 L (0.5-1.0) mg/dL Total Protein 6.6 (6.0-8.3) g/dL Albumin 3.8 (3.3-5.0) g/dL Lipase 93 (23-300) U/L Urine Color Yellow (Yellow) Urine Appearance Clear (Clear) Urine pH 5.5 (5.0-8.5) Ur Specific [place] 1.015 (1.000-1.030) Urine Protein Negative (Negative) Urine Glucose (UA) Negative (Negative) Urine Ketones Negative (Negative) Urine Blood Negative (Negative) Urine Nitrite Negative (Negative) Urine Bilirubin Negative (Negative) Urine Urobilinogen 0.2 (0.2-1.0) Ur Leukocyte Esterase Trace A (Negative) Urine RBC 0-2 (0-2) Urine WBC 0-2 (0-5) Ur Squamous Epith Cells Few (None-Few) Urine Bacteria None (None) Imaging Data CT scan - abdomen: Attestation: I have reviewed the pertinent imaging results. My impression: No obstruction or obvious diverticulitis. Radiologist's impression: IMPRESSION: 1. Increased conspicuity of missing of the mesentery with mildly prominent mesenteric lymph nodes, measuring up to 1.2 cm in short axis. 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 2. Moderate colonic diverticulosis. There is no discrete evidence of acute diverticulitis although there is a small amount of free fluid within the right lower pelvis adjacent to some colonic diverticula. This fluid is nonspecific although a mild diverticulitis of the distal sigmoid cannot entirely be excluded (although felt less likely). 3. No evidence of bowel obstruction. 4. Moderate prostatomegaly. Discharge Plan Discharge Clinical Impression: Sclerosing mesenteritis Patient Disposition: Home, Self-Care Condition: Improved Additional Instructions: As we discussed, your labs and imaging studies do not show any signs of obstruction, infection or any other dangerous pathology today. 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 I do not know your history or your GI workup well enough to know if this could be contributing to your chronic symptoms but this is a great question to pose to your GI doctor. I have revised you with a copy of the CT report to share with them as well. I would recommend that you draft a my chart message during the daylight hours and pass along the information to them and let them decide if you should continue your antibiotics or if they think they should explore this diagnosis further. Since there are no signs of infection, severe inflammation or other dangerous complication today, no treatment is needed. It is okay for you to continue Tylenol 1000 mg 3-4 times daily as needed for discomfort. Come back to the emergency department if you have fevers over 100.4, significant blood in your stools, persistent vomiting or very severe pain that limits her ability to eat or function. Activity Level: Activity as Tolerated Discharge Diet: Regular Prescriptions: No Action nifedipine 30 mg tablet extended release 24hr 30 mg PO DAILY Hold Instructions: Doctor's Order atorvastatin 40 mg tablet 40 mg PO DAILY amiodarone 200 mg tablet 100 mg PO DAILY Hold Instructions: Order Change nifedipine 60 mg tablet extended release 24hr 60 mg PO DAILY pantoprazole 40 mg tablet,delayed release (DR/EC) 40 mg PO DAILY Xifaxan 550 mg tablet 550 mg PO 3XD Xarelto 15 mg tablet 15 mg PO DAILY Follow Up/Referrals: Keron Murry MD [Primary Care Provider] - Stand Alone Forms: [employer] Info Instructions
[2023-04-17 04:11] LABS: Lactate* 0.6 mmol/L (0.5-1.9)
[2023-04-17 04:12] LABS: Basophils Absolute Auto 0.03 K/uL (0.00-0.30); Basophils Percent Auto 0.4 % (0.0-3.0); Eosinophils Absolute Auto 0.35 K/uL (0.00-0.50); Eosinophils Percent Auto 4.7 % (0.0-7.0); Hematocrit 41.8 % (37.0-53.0); Hemoglobin* 14.1 gm/dL (13.5-17.5); Lymphocytes Percent Auto 16.2 % (20-44); Mean Corpuscular HGB Conc 34 gm/dL (32-36); Mean Corpuscular Hemoglobin 33 pg (26-34); Mean Corpuscular Volume 98 fL (80-100); Monocytes Percent Auto 9.7 % (0.0-11.0); Neutrophils Absolute Auto 5.19 K/uL (1.7-7.0); Platelet Count* 217 K/uL (140-440); RDW Coefficient of Variation % 13.1 % (11.5-15.5); Red Blood Count 4.28 m/uL (4.30-5.90); White Blood Count* 7.52 K/uL (4.50-11.00)
[2023-04-17 04:13] LABS: Slide Review Reflex No
[2023-04-17] MEDS: ONDANSETRON 2 MG/ML inj 4 MG IVP (04:22)
[2023-04-17] MEDS: LACTATED RINGERS 1000 ML 1,000 ML 500 ML IV (04:22)
[2023-04-17 04:27] LABS: Chloride* 106 mmol/L (96-114)
[2023-04-17 04:28] LABS: Albumin* 3.8 g/dL (3.3-5.0); Potassium* 4.1 mmol/L (3.6-5.1); Sodium* 140 mmol/L (135-149)
[2023-04-17 04:30] LABS: Est. Creatinine Clearance* 51.88; Estimated Glomerular Filt Rate 77 ml/min
[2023-04-17 04:31] LABS: Alanine Aminotransferase* 13 U/L (4-50); Alkaline Phosphatase* 99 U/L (40-150); Aspartate Amino Transferase* 32 U/L (12-35); Bilirubin Total* 0.6 mg/dL (0.1-1.5); Blood Urea Nitrogen* 22 mg/dL (7-30); Calcium* 9.3 mg/dL (8.4-10.6); Carbon Dioxide* 28 mmol/L (20-32); Glucose* 95 mg/dL (60-115); Lipase* 93 U/L (23-300); Total Protein* 6.6 g/dL (6.0-8.3)
[2023-04-17] MEDS: KETOROLAC 15 MG/ML inj IVP (04:32)
[2023-04-17 04:34] LABS: Anion Gap 6 mEq/L (7-15); C Reactive Protein* < 0.5 mg/dL (0.5-1.0)
[2023-04-17 04:56] LABS: Appearance Urine Clear (Clear); Bilirubin Urine Negative (Negative); Blood Urine Negative (Negative); Color Urine Yellow (Yellow); Glucose Urine Negative (Negative); Ketones Urine Negative (Negative); Leukocyte Esterase Urine Trace (Negative); Nitrite Urine Negative (Negative); Protein Urine Negative (Negative); Specific Gravity Urine 1.015 (1.000-1.030); Urobilinogen Urine 0.2 (0.2-1.0); pH Urine 5.5 (5.0-8.5)
[2023-04-17 05:11] LABS: RBC Urine 0-2 (0-2); Squamous Epithelial Cell Urine Few (None-Few); WBC Urine 0-2 (0-5)
[2023-04-17 05:49] VITALS: PULSE 70; RESP 16
[2023-04-17 06:00] VITALS: BP 148/116; PULSE 72; RESP 20; O2SAT 99
== END 2023-04-17 06:01 | disposition home or self-care (01) ==
PROVIDERS: Emergency Provider Family Medicine; PCP Family Medicine
DX: K65.4 Sclerosing mesenteritis (principal)
CPT/HCPCS: 36415; 74177; 80053; 81001; 81003; 81015; 83605; 83690; 85025; 86140; 96374; 96375; 99284; 99285; J1885; J2405; J7120; Q9967

== ENCOUNTER 2023-06-18 07:31 | Outpatient (CLI) | payer MEDICARE, BC, SELFPAY ==
--- NOTE | 2023-06-18 08:00 | CRLHL7_ITS ---
For Patients: As a result of the Century Cures Act, medical imaging exams and procedure reports are released immediately into your electronic medical record. You may view this report before your referring provider. If you have questions, please contact your health care provider. INDICATION: Upper abdominal pain. TECHNIQUE: CT abdomen and pelvis acquired with 69 cc Isovue 370 IV contrast. COMPARISON: April 17, 2023. FINDINGS: Lower chest: Cardiomegaly present Liver: Fatty infiltration. Otherwise unremarkable. Gallbladder and bile ducts: Unremarkable. No stones or inflammation. No biliary dilatation. Pancreas: Unremarkable. No mass or inflammation. Spleen: Unremarkable. Normal in size. No masses. Adrenal glands: Unremarkable. No nodules. Kidneys: Unremarkable. No suspicious masses, stones, or hydronephrosis. GI tract: Unremarkable. Normal in caliber. No sign of mass or inflammation. Normal appendix. Vasculature: Abdominal aorta is normal in caliber. Mesenteric arteries are patent. Lymph nodes: No lymphadenopathy. Peritoneum/Abdominal Wall: Unremarkable. No sign of mass or infiltration. No free air or significant free fluid. Pelvis: Prostatomegaly. 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 IMPRESSION: No acute or specific findings to explain upper abdominal pain. No mass or lymphadenopathy evident on today`s exam. No signs of inflammation. Please note that all CT scans at this facility use dose modulation, iterative reconstruction, and/or weight-based dosing when appropriate to reduce radiation dose to as low as reasonably achievable. Dictated by Fransisco Mera MD @ 06/20/2023 7:43:47 AM (Electronically Signed)
[2023-06-18 08:11] LABS: Creatinine* 1.4 mg/dL (0.5-1.5); Estimated Glomerular Filt Rate 51 ml/min
== END 2023-06-18 07:32 | disposition home or self-care (01) ==
LOC: CT 07:32
PROVIDERS: PCP Family Medicine; Visit Provider Internal Medicine Gastroenterology
DX: R10.10 Upper abdominal pain, unspecified (principal)
CPT/HCPCS: 36415; 74177; 82565; Q9967

== ENCOUNTER 2024-01-02 11:09 | Emergency (ER) | payer MEDICARE, BC, SELFPAY ==
[2024-01-02] VITALS (73 sets, daily range): BP systolic 124–148; BP diastolic 97–117; PULSE 105–121; RESP 12–22; TEMP 36.3; O2SAT 90–100; BMI 18.5
--- NOTE | 2024-01-02 11:44 | CRLHL7_ITS ---
For Patients: As a result of the Cures Act, medical imaging exams and procedure reports are released immediately into your electronic medical record. You may view this report before your referring provider. If you have questions, please contact your health care provider. Indication: weakness recent valve surgery Technique: AP view of the chest. Comparison: None. Findings: Postsurgical changes from median sternotomy, left atrial appendage clipping, and aortic valvular replacement. Left chest pacemaker with right atrial and right ventricular leads. Mildly enlarged cardiomediastinal silhouette with calcified aortic knob. No focal consolidation, pleural effusions, or visualized pneumothorax. Impression: No acute cardiopulmonary disease. Dictated by Mookie Boggs MD @ 01/02/2024 12:23:29 PM (Electronically Signed)
--- NOTE | 2024-01-02 11:47 | ED_ITS ---
HPI - General Adult General Date Seen: 01/02/24 Chief complaint: Arrhythmia/Palpitations Stated complaint: Sent from for cardiac Time Seen by Provider: 01/02/24 11:10 Source: patient, family, RN notes reviewed and old records reviewed Mode of arrival: ambulatory Limitations: no limitations History of Present Illness HPI narrative: Patient is a 78-year-old male here with his son and daughter for evaluation of weakness and weight loss. He had a tissue valve replacement at [facility] on October 26, previously was anticoagulated with Xarelto for atrial fibrillation, remote history pacemaker placement. Reports that since surgery he has had trouble with nausea, appetite suppression, weight loss, and feels that he is getting more wobbly and weak as time goes on. He lives independently, says he is doing okay as far as that goes, has lots of help from family. He has not had any chest pain or shortness of breath. He has not had any vomiting, diarrhea, black or bloody stools. Simply can not get himself to eat. Today at cardiac rehab he noted that he was less strong than he has been, he was noted have a high heart rate and was sent to urgent care who sent him here. He has previously been seen by Dr. Murry for these symptoms, he reports that he had a comprehensive workup including labs and CT scan it sounds like of the chest abdomen pelvis which was unrevealing. He does not smoke or drink. Other medical history notable for diabetes, had been on Jardiance which was discontinued because of his nausea. Ten days ago his amiodarone was also discontinued for this reason, it sounds like from discussion between Dr. 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 He has not seen Cardiology since his surgery, has an appointment next week for his 1st postop visit. Related Data Home Medications ?Medication ?Instructions ?Recorded ?Confirmed amiodarone 200 mg tablet 100 mg PO DAILY 10/06/22 04/17/23 atorvastatin 40 mg tablet 40 mg PO DAILY 10/06/22 04/17/23 nifedipine 30 mg tablet,extended 30 mg PO DAILY 10/06/22 04/17/23 release 24 hr nifedipine 60 mg tablet,extended 60 mg PO DAILY 10/06/22 04/17/23 release 24 hr pantoprazole 40 mg tablet,delayed 40 mg PO DAILY 10/06/22 04/17/23 release rifaximin 550 mg tablet (Xifaxan) 550 mg PO 3XD 10/06/22 04/17/23 rivaroxaban 15 mg tablet (Xarelto) 15 mg PO DAILY 10/06/22 04/17/23 Allergies Allergy/AdvReac Type Severity Reaction Status Date / Time oxycodone AdvReac Severe Verified 06/18/23 08:42 Review of Systems Status of ROS: Reports: 10 or more systems reviewed and unremarkable except as noted in History and below [facility] Medical History Small intestinal bacterial overgrowth (SIBO) ?K63.89 - Other specified diseases of intestine (ICD-10) Acute diverticulitis ?K57.92 - Diverticulitis of intestine, part unspecified, without perforation or abscess without bleeding (ICD-10) Surgical History History of bowel resection ?Z90.49 - Acquired absence of other specified parts of digestive tract (ICD- 10) History of appendectomy ?Z90.49 - Acquired absence of other specified parts of digestive tract (ICD- 10) Social History Smoking Status: Never smoker Do you use any of these nicotine containing products: None Second hand tobacco smoke exposure: No How often do you have a drink containing alcohol: never How often do you have six or more drinks on one occasion: Never AUDIT-C Alcohol total score: 0 Non-prescribed substance use: denies use service: Yes Exam Narrative: Exam Narrative: Vital signs as noted above. In general, an alert, nontoxic elderly male. He is quite thin. Breathing easily. Head: Normocephalic, atraumatic. Eyes: Pupils are equal reactive. Extraocular movements are full. Conjunctivae are normal. No icterus. ENT: Mucous membranes are moist. Neck: Supple without lymphadenopathy. Heart: Tachycardic and regular, no murmur. Lungs: Clear bilaterally. No increased work of breathing, crackles or wheezes. Abdomen: Soft and nontender. No organomegaly. Extremities: Well perfused. No edema. No calf tenderness. Pulses intact. Neurologic: Patient is alert and oriented to person and place. Speech is fluent. Face is symmetric. Moves all extremities equally. Affect: Normal. Skin: Warm and dry. Well perfused. Const: Vital Signs, click to edit/add: Vital Signs - 24 hr 01/02/24 11:19 Temperature 97.3 F L Pulse Rate [Pulse Oximeter] 118 H Respiratory Rate 22 Blood Pressure [Ri ght Upper Arm] 148/116 H Pulse Oximetry 100 Oxygen Delivery Me thod Room Air Documenting provider has reviewed patient's vital signs: yes Course Course ED Course: 78-year-old male with essentially failure to thrive post valve replacement in October. He has tachycardic here, EKG shows a paced rhythm at 121 beats per minute. He otherwise does not provide any symptoms suggesting an acute issue today such as infection, GI bleed, acute coronary syndrome, congestive heart failure etcetera. Will recheck labs, discuss with Cardiology. Labs here very fairly unremarkable. Initial troponin was 0.08, a 2 hour repeat was 0.09. I think this is probably related to little demand ischemia from his persistent tachycardia. His white count was normal at 6.36, hemoglobin was good at 13.1. Metabolic panel was normal, creatinine was 1.6, baseline seems to run between 1.41.6. He does have elevations in his AST and ALT of 362 and 151, other LFTs are normal. Sounds like he has had some recent elevations in LFTs, his children say that his liver was being looked at, does not sound like anything was seen on CT scan. CRP was less than 0.5. TSH was normal and UA was negative. Case was discussed with Dr. Roldan, was on-call for Cardiology at [facility]. The main finding at this point is this persistent tachycardia. Originally Dr. Andrade he thought that they may be able to help get someone here from [employer] to interrogate the pacemaker, it does not sound as if that is possible, but we are going have his daughter go get his pacemaker device from home so that he can do a remote interrogation with [employer] and see if they can fix the tachycardia. Ultimately, unable to manage the problem here, transferred to [facility] for Cardiology. Vital Signs Vital signs: Initial Vital Signs Temperature 97.3 F L 01/02/24 11:19 Temperature Source Temporal Artery Scan 01/02/24 11:19 Pulse Rate 118 H 01/02/24 11:19 Pulse Rhythm Regular 01/02/24 11:19 Respiratory Rate 01/02/24 11:19 Blood Pressure 148/116 H 01/02/24 11:19 Blood Pressure Mean 126 H 01/02/24 11:19 Blood Pressure Position Supine 01/02/24 11:19 Pulse Oximetry 100 01/02/24 11:19 Oxygen Delivery Method Room Air 01/02/24 11:19 Vital Signs Temperature 97.3 F L 01/02/24 11:19 Pulse Rate 118 H 01/02/24 11:19 Respiratory Rate 22 01/02/24 11:19 Blood Pressure 148/116 H 01/02/24 11:19 Pulse Oximetry 100 01/02/24 11:19 Oxygen Delivery Method Room Air 01/02/24 11:19 Temperature 97.3 F L 01/03/24 00:10 Pulse Rate 110 H 01/03/24 00:10 Respiratory Rate 16 01/03/24 00:10 Blood Pressure 135/102 H 01/03/24 00:10 Pulse Oximetry 98 01/03/24 00:00 Oxygen Delivery Method Room Air 01/02/24 19:01 Medications Administered Medications: Discontinued Medications Generic Name Dose Route Start Last Admin Trade Name Freq PRN Reason Stop Dose Admin Sodium Chloride 500 mls @ 500 mls/hr 01/02/24 11:43 01/02/24 13:39 0.9 % Sodium Chloride 500 Ml IV 01/02/24 12:42 Infused .Q1H ONE Infusion Sodium Chloride 500 mls @ 500 mls/hr 01/02/24 18:03 01/02/24 19:10 0.9 % Sodium Chloride 500 Ml IV 01/02/24 19:02 Infused .Q1H ONE Infusion Sodium Chloride 1,000 mls @ 125 mls/hr 01/02/24 23:22 01/03/24 00:10 0.9 % Sodium Chloride 1000 Ml IV Not Given .Q8H LOPEZ Ondansetron HCl 4 mg 01/02/24 11:43 01/02/24 20:44 Ondansetron 2 Mg/Ml Inj IVP 01/02/24 11:44 Not Given ONCE ONE Medical Decision Making Lab Data Labs: Lab Results 01/02/24 01/02/24 01/02/24 Range/Units 11:55 13:05 14:46 WBC 6.36 (4.50-11.00) K/uL RBC 4.26 L (4.30-5.90) m/uL Hgb 13.1 L (13.5-17.5) gm/dL Hct 41.1 (37.0-53.0) % MCV 97 (80-100) fL MCH 31 (26-34) pg MCHC 32 (32-36) gm/dL RDW Coeff of Leo 16.6 H (11.5-15.5) % Plt Count 261 (140-440) K/uL Neut % (Auto) 61.5 (42.0-72.0) % Lymph % (Auto) 21.1 (20-44) % [place] % (Auto) 14.9 H (0.0-11.0) % Eos % (Auto) 2.0 (0.0-7.0) % Baso % (Auto) 0.3 (0.0-3.0) % Neut # (Auto) 3.91 (1.7-7.0) K/uL Lymph # (Auto) 1.34 (0.90-2.90) K/uL [place] # (Auto) 0.90 (0.00-0.90) K/UL Eos # (Auto) 0.13 (0.00-0.50) K/uL Baso # (Auto) 0.02 (0.00-0.30) K/uL Abs Immat Gran (auto) 0.01 (0.00-0.30) K/uL Imm/Tot Granulo (auto) 0.2 % ESR 6 (2-15) mm/hr Sodium 135 (135-149) mmol/L Potassium 4.6 (3.6-5.1) mmol/L Chloride 104 (96-114) mmol/L Carbon Dioxide 23 (20-32) mmol/L Anion Gap 8 (7-15) mEq/L BUN 30 (7-30) mg/dL Creatinine 1.6 H (0.5-1.5) mg/dL Estimated Creat Clear 30.02 Estimated GFR 44 ml/min Glucose 114 (60-115) mg/dL Lactate 1.4 (0.5-1.9) mmol/L Calcium 9.3 (8.4-10.6) mg/dL Total Bilirubin 0.8 (0.1-1.5) mg/dL Direct Bilirubin 0.4 (0.0-0.5) mg/dL AST 362 H (12-35) U/L ALT 151 H (4-50) U/L Alkaline Phosphatase 92 (40-150) U/L C-Reactive Protein < 0.5 L (0.5-1.0) mg/dL Total Protein 7.1 (6.0-8.3) g/dL Albumin 4.3 (3.3-5.0) g/dL Lipase 231 (23-300) U/L TSH 4.180 (0.270-4.200) uIU/mL Urine Color Yellow (Yellow) Urine Appearance Clear (Clear) Urine pH 5.5 (5.0-8.5) Ur Specific [place] 1.015 (1.000-1.030) Urine Protein 1+ A (Negative) Urine Glucose (UA) Negative (Negative) Urine Ketones Negative (Negative) Urine Blood 2+ A (Negative) Urine Nitrite Negative (Negative) Urine Bilirubin Negative (Negative) Urine Urobilinogen 0.2 (0.2-1.0) Ur Leukocyte Esterase Negative (Negative) Urine RBC 0-2 (0-2) Urine WBC 0-2 (0-5) Ur Squamous Epith Cells None (None-Few) Urine Bacteria None (None) POC Troponin I 0.08 H 0.09 H (0.01-0.04) ng/ml Discharge Plan Discharge Clinical Impression: Tachycardia Patient Disposition: Xfer Other Condition: Stable Prescriptions: No Action nifedipine 30 mg tablet extended release 24hr 30 mg PO DAILY Hold Instructions: Doctor's Order atorvastatin 40 mg tablet 40 mg PO DAILY amiodarone 200 mg tablet 100 mg PO DAILY Hold Instructions: Order Change nifedipine 60 mg tablet extended release 24hr 60 mg PO DAILY pantoprazole 40 mg tablet,delayed release (DR/EC) 40 mg PO DAILY Xifaxan 550 mg tablet 550 mg PO 3XD Xarelto 15 mg tablet 15 mg PO DAILY
--- OUTSIDE RECORDS SUMMARY | 2024-01-02 12:05 | XMS_ITS | Clinical Summary ---
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 Codeine Nausea And Vomiting 11/12/2021 Medications Medication Sig Dispensed Refills Start Date End Date Status acetaminophen (TYLENOL EXTRA STRGTH) 500 mg tabletIndications:S/ P AVR (aortic valve replacement) Take 1 Tablet (500 mg) by mouth every 6 hours if needed for Pain. Max acetaminophen dose: 4000mg in 24 hrs. 4 Active aspirin chewable 81 mg chewable tabletIndications:S/ P AVR (aortic valve replacement) Take 1 Tablet (81 mg) by mouth or nasogastric tube once daily. 90 Tablet 3 4 Active empagliflozin (JARDIANCE) 10 mg tabletIndications:S/ P AVR (aortic valve replacement) Take 1 Tablet (10 mg) by mouth once daily. 30 Tablet 2 4 Active spironolactone (ALDACTONE) 25 mg tabletIndications:S/ P AVR (aortic valve replacement) Take 1 Tablet (25 mg) by mouth every morning. 30 Tablet 2 4 Active isosorbide mononitrate (IMDUR) 30 mg extended release tablet 24 HourIndications:Card iomyopathy, unspecified type (HC) Take 0.5 Tablets (15 mg) by mouth once daily. 45 Tablet 3 4 Active atorvastatin (LIPITOR) 40 mg tabletIndications:Co ronary atherosclerosis due to lipid rich plaque Take 1 Tablet (40 mg) by mouth once daily. 90 Tablet 3 4 Active pantoprazole (PROTONIX) 40 mg delayed-release tabletIndications:Ch ronic GERD Take 1 Tablet (40 mg) by mouth once daily. 90 Tablet 3 4 Active ondansetron (ZOFRAN) 4 mg tabletIndications:Na usea Take 1 Tablet (4 mg) by mouth every 8 hours if needed for Nausea/Vomiting. 30 Tablet 4 Active LORazepam (ATIVAN) 1 mg tabletIndications:Cl austrophobia 1 tablet orally 1 hour before procedure, may repeat x 1 after 30 minutes if necessary. 2 Tablet 4 Active warfarin (COUMADIN) 1 mg tabletIndications:Pa roxysmal A-fib (HC),Anticoagulation monitoring, INR range 2-3,S/P AVR (aortic valve replacement) Take by mouth 1.5 mg (1 mg x 1.5) every Sat; 1 mg (1 mg x 1) all other days in the evening OR as directed 4 Active nystatin (MYCOSTATIN) 100,000 unit/mL suspensionIndication s:Thrush Swish and swallow 5 mL (500,000 units) by mouth four times daily. 200 mL 4 12/19/19 24 Discontinue d(*Med complete/Re gimen complete/Le nathen of care change) amiodarone (CORDARONE) 200 mg tabletIndications:S/ P AVR (aortic valve replacement) One oral daily 30 Tablet 1 4 12/20/19 24 Discontinue d(*Medicati on adjustment) warfarin (COUMADIN) 1 mg tabletIndications:Pa roxysmal A-fib (HC),Anticoagulation monitoring, INR range 2-3,S/P AVR (aortic valve replacement) Take by mouth 1 mg every Sat; 0.5 mg (1 mg x 0.5) all other days or as directed. 4 12/05/19 24 Discontinue d(Reorder (E-cancel not sent)) warfarin (COUMADIN) 1 mg tabletIndications:Pa roxysmal A-fib (HC),Anticoagulation monitoring, INR range 2-3,S/P AVR (aortic valve replacement) Take by mouth 1 mg (1 mg x 1) every Tue, Sat; 0.5 mg (1 mg x 0.5) all other days in the evening OR as directed 4 12/12/19 24 Discontinue d(Reorder (E-cancel not sent)) warfarin (COUMADIN) 1 mg tabletIndications:Pa roxysmal A-fib (HC),Anticoagulation monitoring, INR range 2-3,S/P AVR (aortic valve replacement) Take by mouth 1 mg (1 mg x 1) every Mon, Wed, Fri; 0.5 mg (1 mg x 0.5) all other days in the evening OR as directed 4 12/19/19 24 Discontinue d(Reorder (E-cancel not sent)) warfarin (COUMADIN) 1 mg tabletIndications:Pa roxysmal A-fib (HC),Anticoagulation monitoring, INR range 2-3,S/P AVR (aortic valve replacement) Take by mouth 0.5 mg every Sun, Tue, Mary; 1 mg all other days in the evening OR as directed 4 12/23/19 24 Discontinue d(Reorder (E-cancel not sent)) amiodarone (CORDARONE) 200 mg tabletIndications:S/ P AVR (aortic valve replacement) Take 0.5 Tablets (100 mg) by mouth once daily. 4 12/23/19 24 Discontinue d(Reorder (E-cancel not sent)) amiodarone (CODARONE/PACERONE) 100 mg tabletIndications:S/ P AVR (aortic valve replacement) Take 100 mg by mouth once daily. 30 Tablet 1 4 12/23/19 24 Discontinue d(*Med complete/Re gimen complete/Le nathen of care change) warfarin (COUMADIN) 1 mg tabletIndications:S/ P AVR (aortic valve replacement),Paroxys mal A-fib (HC),Anticoagulation monitoring, INR range 2-3 Take by mouth 0.5 mg (1 mg x 0.5) every Sun, Tue, Mary; 1 mg (1 mg x 1) all other days in the evening OR as directed 72 Tablet 4 12/26/19 24 Discontinue d(Other - add note to specify (E-cancel not sent)) warfarin (COUMADIN) 1 mg tabletIndications:Pa roxysmal A-fib (HC),Anticoagulation monitoring, INR range 2-3,S/P AVR (aortic valve replacement) Take by mouth 0.5 mg (1 mg x 0.5) every Mary; 1 mg (1 mg x 1) all other days in the evening OR as directed 4 01/02/20 24 Discontinue d(Other - add note to specify (E-cancel not sent)) Active Problems Problem Noted Date Diagnosed Date Depression, recurrent 12/19/2023 Anticoagulation monitoring, INR range 2-3 2023 Acute blood loss anemia 11/05/2023 Transaminitis 11/01/2023 S/P AVR (aortic valve replacement) 10/27/2023 04/0 02/2024 Overview: Aortic valve replacement with bioprosthetic [employer] inspiris resilia aortic vavle sz 27mm, SN: [id number], REF: [id number], implanted by Dr. Xiao on 10/27/2023 Cardiomyopathy, unspecified type 09/01/2023 Nonalcoholic fatty liver 06/23/2023 PVC's (premature ventricular contractions) 06/07 Vitamin B12 deficiency; injections restarted 02/19 022 03/18/2022 Small intestinal bacterial overgrowth: 2021 per eval w [facility] 03/15/2022 Status post dual chamber pacemaker 10/27/202010/19 Essential hypertension 08/10/2019 Sensorineural hearing loss, bilateral 06/24/2014 ARTERIOSCLEROTIC HEART DISEASE, LA POSTA VESSEL Overview: - 02/2004: s/p ANDI pLAD S/P ANDI TO PROX LAD 03/20/04 Overview: 95-99% --> 0% Other and unspecified hyperlipidemia AORTIC INSUFFICIENCY, MODERATE PER ECHO 2020 HX OF FIRST DEGREE ATRIOVENTRICULAR BLOCK/ RBBB S/P INGUINAL HERNIA x4 Esophageal reflux Overview: EGD 02/2017 normal Paroxysmal A-fib Overview: Apixaban CKD (chronic kidney disease) stage 3, GFR 30-59 ml/min BPH (benign prostatic hyperplasia) Ascending aorta dilation Resolved Problems Problem Noted Date Diagnosed Date Resolved Date Acute respiratory insufficie ncy, postoperative 11/01/2023 11/18/2023 Lactic acidosis 11/01/2023 12/19/2023 Acute kidney injury superimposed on CKD 11/01/2023 11/18/2023 On mechanically assisted ventilation 10/27/2023 11/18/2023 Exertional dyspnea 06/07/2022 4 Wound check, abscess 03/14/2022 023 Routine adult health maintenance 03/12/2017 09/01/2020 Overview: Colonoscopy 02/2017 normal repeat in 10 years Incomplete rotator cuff tear or rupture of left shoulder 06/12/2016 10/13/2017 Biceps tendonitis on left 06/12/2016 Right shoulder s/p arthrosco pic RCR, subscap repair, SAD, DCE & open subpectoral biceps tendoesis 05/01/11 08/19/2011 11/03/2018 S/p left shoulder arthroscop ic rotator cuff repair, subacromial decompression, distal claviculectomy, and open biceps transposition - DOS: 05/09/2017 by Shereen Navarro MD 05/07/201110/19 Subscapularis tear 01/11/2011 1 Subscapularis tear, right 01/11/2011 Rotator cuff tear, bilateral 01/11/2011 10/13/2017 Acromioclavicular joint arthritis, bilateral 1 10/13/2017 Raynaud's syndrome 0 DYSPNEA ON EXERTION 11/04/19 19 Moderate aortic valve regurgitation 03/14/2022 Raynaud's syndrome 3 Encounters Date Type Department Care Team Description 01/02/2024 11:45 AM CDT Orders Only [facility] [address] [place] [address] Lab, [place] [facility] 01/02/2024 9:44 AM CDT Hospital Encounter [facility] [address] [place] [address] John Merchant MD Arrived 01/02/2024 Telephone [facility] [address] [place] [address] John Merchant MD 01/02/2024 Anticoagulation (warfarin) [facility] [address] [place] [address] 1, [facility] Anticoagulation 01/02/2024 Nurse Triage [facility] [address] [place] [address] John Merchant MD Fast Heartbeat 01/02/2024 Travel 12/31/2023 9:45 AM CDT - 12/31/2023 11:59 PM CDT Hospital Encounter [facility] [address] [facility] [place] [address] John Merchant MD 12/31/2023 Telephone [facility] [address] [place] [address] John Merchant MD Questions 12/31/2023 Travel 12/30/2023 9:09 AM CDT - 12/30/2023 11:59 PM CDT Hospital Encounter [facility] [address] [place] [address] John Merchant MD Weight loss 12/29/2023 9:43 AM CDT - 12/29/2023 11:59 PM CDT Hospital Encounter [facility] [address] [facility] [place] [address] John Merchant MD 12/29/2023 Travel 12/27/2023 Orders Only [facility] [address] [place] [address] John Merchant MD <No scans attached> 12/26/2023 11:45 AM CDT Orders Only [facility] [address] [place] [address] Lab, [place] Outside Order (David Ashford) 12/26/2023 9:45 AM CDT - 12/26/2023 11:59 PM CDT Hospital Encounter [facility] [address] [place] [address] John Merchant MD 12/26/2023 Telephone [facility] [address] [place] [address] John Merchant MD Anticoagulation 12/26/2023 Anticoagulation (warfarin) [facility] [address] [place] [address] 1, [facility] Anticoagulation 12/26/2023 Telephone [facility] [address] [facility] [place] [phone] Paco Lewis PA Concerns 12/26/2023 Travel 12/24/2023 9:44 AM CDT - 12/24/2023 11:59 PM CDT Hospital Encounter [facility] [address] [place] [address] John Merchant MD 12/24/2023 Transcribe Orders [facility] [address] [place] [address] David Ashford MD 12/24/2023 Orders Only [facility] [address] [place] [address] John Merchant MD Outside Order (Ordered by David Ashford) 12/24/2023 Travel 12/24/2023 Orders Only [facility] [address] [place] [address] John Merchant MD Outside Order (Ordered by David Ashford ) 12/23/2023 Patient Outreach [facility] Care Management - Advanced Care Team [address] [place] [address] Vaishali Boyd, GEORGE ACO Reach - End Stage Renal Disease (ACO Reach Engagement Outreach) 12/23/2023 Refill [facility] [address] [place] [address] John Merchant MD Refill Request (Amiodarone) 12/23/2023 Telephone [facility] [address] [place] [address] John Merchant MD Anticoagulation (BPA - AMIODARONE 100 MG TABLET) 12/23/2023 Telephone [facility] [address] [place] [address] John Merchant MD Need Meds; Refill Request (Warfarin) 12/22/2023 9:44 AM CDT - 12/22/2023 11:59 PM CDT Hospital Encounter [facility] [address] [place] [address] John Merchant MD 12/22/[address] [place] [phone] Amilcar Ross MD Medication Management 12/22/2023 Travel 12/22/2023 Telephone [facility] [address] [place] [address] John Merchant MD Results 12/20/2023 Telephone [facility] [address] [place] [address] 1, [facility] Anticoagulation (BPA trigger) 12/20/2023 Orders Only [facility] [address] [place] [address] John Merchant MD <No scans attached> 12/19/2023 2:05 PM CDT Office Visit [facility] [address] [place] [address] John Merchant MD Follow Up (Heart valve replacement, numb tongue since the surgery); Concerns (Wants to know if he should take B12, droopy mouth on rt side, drools/Weight loss, no appetite) 12/19/2023 12:10 PM CDT Orders Only [facility] [address] [facility] [place] [address] Lab, [place] Lab 12/19/2023 9:51 AM CDT - 12/19/2023 11:59 PM CDT Hospital Encounter [facility] [address] [facility] [place] [address] John Merchant MD 12/19/[address] [facility] [address] [facility] [address] [place] [address] Betsy Cole I, RN Device Check 12/19/2023 Anticoagulation (warfarin) [facility] [address] [place] [address] 1, [facility] Anticoagulation 12/19/2023 Travel 12/18/[address] [facility] [place] [address] [facility] [address] [place] [phone] Amilcar Ross MD Questions 12/17/2023 9:50 AM CDT - 12/17/2023 11:59 PM CDT Hospital Encounter [facility] [address] [place] [address] John Merchant MD 12/17/2023 Travel 12/12/2023 2:00 PM CDT Orders Only [facility] [address] [place] [address] Lab, [place] [facility] 12/12/2023 11:00 AM CDT Orders Only [facility] [address] [facility] [place] [address] Lab, [facility] Lab 12/12/2023 9:45 AM CDT - 12/12/2023 11:59 PM CDT Hospital Encounter [facility] [address] [facility] [place] [address] John Merchant MD 12/12/2023 Anticoagulation (warfarin) [facility] [address] [place] [address] 1, [facility] Anticoagulation 12/12/2023 Telephone [facility] [address] [place] [address] 1, [facility] Anticoagulation (POCT vs Venous) 12/12/2023 Telephone [facility] [address] [place] [address] John Merchant MD Lab (Please have patient speak with Lab) 12/12/2023 Travel 12/10/2023 9:47 AM CDT - 12/10/2023 11:59 PM CDT Hospital Encounter [facility] [address] [facility] [place] [address] John Merchant MD 12/10/2023 Travel 12/08/2023 9:43 AM CDT - 12/08/2023 11:59 PM CDT Hospital Encounter [facility] [address] [facility] [place] [address] John Merchant MD 12/08/2023 Travel 12/05/2023 11:30 AM CDT Orders Only [facility] [address] [facility] [place] [address] Lab, [place] Lab 12/05/2023 9:42 AM CDT - 12/05/2023 11:59 PM CDT Hospital Encounter [facility] [address] [facility] [place] [address] John Merchant MD 12/05/2023 Anticoagulation (warfarin) [facility] [address] [place] [address] 1, [facility] Anticoagulation 12/05/2023 Travel 12/04/[address] [facility] [address] [place] [phone] Amilcar Ross MD Questions (MEDICATION ) 12/04/2023 Telephone [facility] [address] [place] [address] John Merchant MD Questions (Previous Heart Surgery) 12/04/[address] [facility] [place] [facility] [address] [place] [address] [place] [phone] Nallely Reyes PA Questions 12/03/2023 9:45 AM CDT - 12/03/2023 11:59 PM CDT Hospital Encounter [facility] [address] [facility] [place] [address] John Merchant MD 12/03/2023 Travel 12/01/2023 9:43 AM CDT - 12/01/2023 11:59 PM CDT Hospital Encounter [facility] [address] [facility] [place] [address] John Merchant MD 12/01/2023 Travel 11/28/2023 1:30 PM CDT Orders Only [facility] [address] [place] [address] Lab, [place] [facility] 11/28/2023 9:48 AM CDT - 11/28/2023 11:59 PM CDT Hospital Encounter [facility] [address] [facility] [place] [address] John Merchant MD 11/28/2023 Anticoagulation (warfarin) [facility] [address] [place] [address] 1, [facility] Anticoagulation 11/28/2023 Travel 11/27/[address] [facility] [place] [address] [facility] [address] [place] [phone] Amilcar Ross MD Medication Management; Weak 11/27/2023 Telephone [facility] [address] [place] [address] John Merchant MD Weight 11/26/2023 9:46 AM CDT - 11/26/2023 11:59 PM CDT Hospital Encounter [facility] [address] [facility] [place] [address] John Merchant MD 11/25/2023 9:18 AM CDT - 11/25/2023 11:59 PM CDT Hospital Encounter [facility] [address] [place] [address] Cisco Eid PA S/P AVR (aortic valve replacement) 11/25/2023 Travel 11/21/2023 7:15 AM CDT Orders Only [facility] [address] [place] [address] Lab, [place] [facility] 11/21/2023 Anticoagulation (warfarin) [facility] [address] [place] [address] 1, [facility] Anticoagulation 11/20/2023 9:00 AM CDT Office Visit [address] [address] Soraya Rice, [facility] Visit 11/20/2023 Travel 11/19/2023 Telephone [facility] [address] [place] [address] John Merchant MD Anticoagulation (BPA: Interacting medications: Warfarin and Amiodarone) 11/19/2023 Orders Only [address] [address] John Merchant MD <No scans attached> 11/19/2023 Orders Only [address] [address] John Merchant MD <No scans attached> 11/18/2023 1:40 PM CDT Office Visit [address] [address] John Merchant MD Hospital F/U (ANW, 10/27/2023 - 11/14/2023, heart valve replacement); Throat Problem (Sore throat, started 10 days ago, difficulty swallowing, worse at night) 11/18/2023 Anticoagulation (warfarin) [facility] [address] [place] [address] 1, [place] [facility] Anticoagulation (Initial intake, Provider visit) 11/18/2023 Travel 11/17/2023 Patient Outreach [facility] [address] [place] [address] Regine Pang, RN Primary RN Care Management; Hospital F/U (LACE 60) 11/15/2023 Nurse Triage [facility] [address] [place] [address] John Merchant MD Throat Pain/problem 11/01/2023 Travel 10/27/2023 7:27 AM CDT Anesthesia Event [facility] [address] [place] [address] Song Dudley MD 10/27/2023 7:00 AM CDT - 10/27/2023 2:40 PM CDT Surgery [facility] [address] [place] [address] Salinas Oates MD INTRA-OP JEAN BY DR. DUDLEY, MAUREEN-STERNOTOMY, REPLACEMENT AORTIC VALVE INSPIRIS SIZE 27MM, LEFT ATRIAL APPENDAGE LIGATION ATRICURE SIZE 45MM, PLACEMENT OF TEMPORARY VENTRITRICULAR PACING WIRES. 10/27/2023 5:50 AM CDT - 11/14/2023 2:45 PM CDT Hospital Encounter [facility] [address] [place] [address] Salinas Oates MD S/P AVR (aortic valve replacement) (Primary Dx) Discharge Disposition: Home Self Care 10/27/2023 Travel 10/20/2023 10:30 AM CDT Phone Office Visit [facility] [place] [facility] [address] [facility] [address] [place] [phone] Nallely Reyes PA Education (Pre-Open Heart Surgery Education) 10/16/2023 2:05 PM CDT Office Visit [facility] [address] [place] [address] John Merchant MD Hospital F/U (ANW, 10/13/2023, angio) 10/16/2023 9:30 AM CDT Phone Office Visit [facility] [place] [facility] [address] [place] [address] [place] [phone] Salinas Oates MD 10/16/2023 Travel 10/14/2023 Travel 10/13/2023 9:02 AM CDT - 10/13/2023 3:00 PM CDT Hospital Encounter [facility] [address] [place] [address] Shanae Fan MD Coronary atherosclerosis due to lipid rich plaque; AORTIC INSUFFICIENCY, MODERATE PER ECHO 2020 Discharge Disposition: Home Self Care 10/13/2023 Travel 10/08/2023 9:10 AM CDT Office Visit [facility] [address] [place] [address] Gabriela Hua MD Ankle Pain/problem (x2 day, pain, no swelling, right ankle) 10/08/2023 Travel from Last 3 Months Immunizations Name Administration Dates Next Due COVID-19 Vaccine Spikevax (M oderna 50mcg/0.5mL) 12YO+ 5227-2114 Formula PF 10/16/2023 COVID-19 vaccine (Moderna 100mcg/0.5mL) PF, MDV 11/01/2021 COVID-19 vaccine (Pfizer-Bio NTech 30mcg/0.3mL) 12YO+ BIVALENT PF, MDV 12/05/2022 COVID-19 vaccine (Pfizer-Bio NTech 30mcg/0.3mL) PF, MDV 05/21/2021,10/03/2020,09/12/2020 Influenza Virus, Unspecified 04/20/2018 Influenza, High-dose Inactivated 019,04/14/2018,04/10/2016,06/01,04/25/2014 Influenza, Inactivated AIIV4 (Age 65+ Years) Preserv Free 04/16/2023,05/07/2022,05/21/2021 Influenza, Inactivated IIV3 (Age 65+ Years) Preserv Free 05/02/2017 Influenza, ccIIV3 (Age >=18 Years) 06/17/2013 Pneumococcal Conj 20-valent (Prevnar 20) 12/05/2022 Pneumococcal Poly,23-Valent (Pneumovax) 05/02/2017 Pneumococcal conj 13-Valent (Prevnar 13) 08/04/2015 RSV, Bivalent Vaccine Recons tituted (Abrysvo 120MCG/0.5mL) 04/16/2023 Td (Age >=7 Years) 12/02/2018 Zoster (Shingrix-RZV, recombinant) 08/04/2023, Zoster (Zostavax-ZVL, live) 10/18/2012 Family History Medical History Relation Name Comments Heart Disease Brother 1 Heart Disease Brother 2 Parkinsonism Brother 2 Atrial fibrillation Brother 3 Identical tw in brother Heart Disease Brother 3 Identical twin brother Valvular heart disease Brother 3 Identical twin brother Being scheduled for AVR surgery Cancer-prostate Father Diabetes Maternal Grandfather Lupus Mother Uterine cancer Mother Cancer Paternal Grandfather Heart Disease Paternal Uncle Myocardial i nfarction in his 60s Anesthesia Problem No Family History Relation Name Status Comments Brother 1 Alive Brother 2 Alive Brother 3 Identical twin brother Alive Father (Age 95) C diff inf ection in hospital Maternal Grandfather Maternal Grandmother Mother (Age 94) Old age Paternal Grandfather Paternal Grandmother Paternal Uncle Social History Tobacco Use Types Packs/Day Years Used Date Smoking Tobacco: Former Cigarettes 0.3 0.5 0 01/19/1970 - 07/21/1970 Smokeless Tobacco: Never Tobacco Cessation:Counseling Given: Yes Comments:Smoking History Packs/day: < 1 Quit smokin Alcohol Use Standard Drinks/Week Comments Not Currently 0 (1 standard drink = 0.6 oz pur e alcohol) rare 1x per month PHQ-2 Answer Date Recorded PHQ-2 TOTAL SCORE 2 11/25/2023 Social Connections Answer Date Recorded Frequency of Communication with Friends and Fami ly 0 09/08/2023 Financial Resource Strain Answer Date R ecorded Difficulty of Paying Living Expenses 3 09/08/2023 Difficulty of Paying Living Expenses Not on file 09/08/2023 Food Insecurity Answer Date Recorded Worried About Running Out of Food in the Last Ye ar 1 09/08/2023 Transportation Needs Answer Date Record ed Lack of Transportation (Medical) 1 09/08/2023 Housing Stability Answer Date Recorded Unable to Pay for Housing in the Last Year 1 09/08/2023 Sex and Gender Information Value Date Recorded Sex Assigned at Not on file Gender Identity Not on file Sexual Orientation Not on file Obstetrics History Last Filed Vital Signs Vital Sign Reading Time Taken Comments Blood Pressure 120/88 12/19/2023 2:04 PM CDT Pulse 101 12/19/2023 2:04 PM CDT Temperature 36.4 ??C (97.5 ??F) 11/14/2023 8:20 AM CD T Respiratory Rate 18 11/14/2023 12:25 PM CDT Oxygen Saturation 96% 12/19/2023 2:04 PM CDT Inhaled Oxygen Concentration - - Weight 55.5 kg (122 lb 6.4 oz) 12/19/2023 2:04 P M CDT Height 177.8 cm (5' 10) 10/27/2023 6:05 AM CDT Body Mass Index 17.56 10/27/2023 6:05 AM CDT Plan of Treatment Upcoming Encounters Date Type Department Care Team (Late st Contact Info) Description 01/05/2024 9:30 AM CDT Office Visit [facility] [place] [facility] [address] [place] [address] [place] [address] Paco Lewis PA [address] [place] [address] [place] [address] 01/05/2024 10:00 AM CDT Appointment [facility] [address] [place] [address] 01/07/2024 10:00 AM CDT Appointment [facility] [address] [place] [address] 01/09/2024 10:00 AM CDT Appointment [facility] [address] [place] [address] 01/09/2024 11:45 AM CDT Orders Only [facility] [address] [place] [address] [place], [place] 01/12/2024 10:00 AM CDT Appointment [facility] [address] [facility] [place] [address] 01/13/2024 10:30 AM CDT Office Visit [facility] [address] [facility] [address] Jed Gold PsyD, LP [address] [place] [address] 01/14/2024 10:00 AM CDT Appointment [facility] 200 [place] [address] 01/16/2024 10:00 AM CDT Appointment [facility] [address] [place] [address] 01/16/2024 11:45 AM CDT Orders Only [facility] [address] [place] [address] [place], [place] 01/19/2024 10:00 AM CDT Appointment [facility] [address] [place] [address] 01/21/2024 10:00 AM CDT Appointment [facility] [address] [place] [address] 01/26/2024 7:30 AM CDT Ancillary Procedure [facility] [address] [place] [address] 01/26/2024 10:00 AM CDT Appointment [facility] [address] [place] [address] 01/28/2024 10:00 AM CDT Appointment [facility] [address] [place] [address] 01/30/2024 10:00 AM CDT Appointment [facility] [address] [place] [address] 02/02/2024 10:00 AM CDT Appointment [facility] [address] [place] [address] 02/04/2024 10:00 AM CDT Appointment [facility] [address] [place] [address] 02/05/2024 9:00 AM CDT Cardiac Device Check [facility] [address] [place] [address] [place] [address] 02/05/2024 9:30 AM CDT Office Visit [facility] [address] [place] [address] Chica Ayers MD [address] [facility] [address] [place] [address] 02/06/2024 10:00 AM CDT Appointment [facility] [address] [place] [address] 02/09/2024 10:00 AM CDT Appointment [address] [address] 02/11/2024 10:00 AM CDT Appointment [address] [address] 02/13/2024 10:00 AM CDT Appointment [address] [address] 02/16/2024 10:00 AM CDT Appointment [address] [address] 02/18/2024 10:00 AM CDT Appointment [address] [address] 02/25/2024 1:00 PM CDT Appointment [facility] [address] [place] [address] 02/25/2024 4:00 PM CDT Appointment [facility]/CT [address] [place] [address] Health Maintenance Due Date Last Done Comments Tdap 1956 Medicare Wellness for age 65+ 03/14/2023, 09/01/2020, 10/22/2018, Additional history exists Influenza for age 65+ 03/21/2024 04/16/2023 , 05/07/2022, 05/21/2021, Additional history exists BMI (ht and wt on same day) for age 18+ 09/01/2024 09/01/2023, 07/15/2023, 11/14/2022, Additional history exists Depression screening for age 12+ 11/27/2024 11/28/2023, 11/28/2023, 11/28/2023, Additional history exists Tetanus booster 12/02/2028 12/02/2018 Hepatitis C screening for ag e 18-79 Completed 03/13/2022 Pneumococcal series for age 65+ Completed 12/05/2022, 05/02/2017, 08/04/2015 Zoster (shingles) series for age 50+ Completed 08/04/2023, 02/25/2023, 10/18/2012 COVID-19 vaccine series Completed 10/16/19, 04/23/2023, 12/05/2022, Additional history exists Medical Devices Implanted Type Area Cell Attendant Helper Device Identifier Shelf Expiration Date Model / Serial / Lot Occluder Malika 45mm Atriclip Flex V Exclusion Sys - [id number] Implanted:Qty: 1 on 10/27/2023 by Salinas Oates MD at [facility] Open Heart Implants N/A: Aortic Valve [employer] 07/21/2026 [id number] / / [id number] Valve Aortic 27mm Inspirus Resilia Tissue - [id number] Implanted:Qty: 1 on 10/27/2023 by Salinas Oates MD at [facility] Open Heart Implants N/A: Aortic Valve Orellana LifesciElepath Hans 06/02/2027 [id number] / [id number] / Anchr Full Threaded 4.5mm - [id number] Implanted:Qty: 1 on 05/01/2011 at [facility] Right: [facility]CONMED [id number]# / / [id number] Anchr Full Threaded 4.5mm - [id number] Implanted:Qty: 1 on 05/01/2011 at [facility] Right: Shoulder [employer] [place] SURGICAL/CONMED [id number]# / / [id number] Ancr Panalok W/Orthocord - [id number] Implanted:Qty: 1 on 05/01/2011 at [facility] Right: Shoulder J And J Depuy Mitek [id number]# / / [id number] Ancr Panalok W/Orthocord - [id number] Implanted:Qty: 1 on 05/01/2011 at [facility] Right: Shoulder J And J Depuy Mitek [id number]# / / [id number] Sut [place] Peek Swivelock 4.75x19.1mm Implanted:Qty: 1 on 05/01/2011 at [facility] Right: Shoulder AR-2324P SLC / / [id number] Description:SUT ANCHOR PEEK SWIVELOCK 4.75X19.1MM Sut [place] Peek Swivelock 4.75x19.1mm Implanted:Qty: 1 on 05/01/2011 at [facility] Explanted:at [facility] (Quantity not on file) Right: Shoulder AR-2324P SLC / / [id number] Description:SUT ANCHOR PEEK [place]IVELOCK 4.75X19.1MM Strip Silcn 1.25x4.0x125 [id number] - [id number] Implanted:Qty: 1 on 09/15/2017 by Roseann Weiner MD at [facility] Left: Eye [employer]ian [employer] 03/21/2024 [id number] / / [id number] Sleeve Silcn 1.00i.D.X2.1mm Od [id number] [id number] Labtician - [id number] Implanted:Qty: 1 on 09/15/2017 by Roseann Weiner MD at [facility] Left: Eye [employer] 05/21/2023 [id number]# / / [id number] Procedures Procedure Name Priority Date/Time Associated Diagnosis Comments INR,POCT Routine 01/02/2024 10:33 AM CDT Paroxysmal A-fib (HC) SCAN-CARDIAC REHABILITATION 01/02/2024 9:51 AM CDT SCAN-CARDIAC REHABILITATION 12/31/2023 9:[address] CHEST ABDOMEN PELVIS W Routine 12/30/2023 9:52 AM CDT Weight loss SCAN-CARDIAC REHABILITATION 12/29/2023 9:48 AM CDT HEPATIC FUNCTION PANEL Routine 11:38 AM CDT Hepatic fibrosis AFP TUMOR MARKER SERUM Routine 11:38 AM CDT Hepatic fibrosis PROTIME-INR Routine 12/26/2023 11:38 AM CDT Paroxysmal A-fib (HC) SCAN-CARDIAC REHABILITATION 12/26/2023 9:52 AM CDT SCAN-CARDIAC REHABILITATION 12/24/2023 9:50 AM CDT SCAN-CARDIAC REHABILITATION 12/22/2023 9:52 AM CDT CBC WITH AUTO DIFFERENTIAL Routine 12/19/2023 3:35 PM CDT Weight loss TSH WITH REFLEX Routine 12/19/2023 3:35 PM CDT Weight loss HEPATIC FUNCTION PANEL Routine 3:35 PM CDT Weight loss BASIC METABOLIC PANEL Routine 12/19/2023 3:35 PM CDT Weight loss CBC WITH AUTO DIFFERENTIAL Routine 12/19/2023 3:35 PM CDT Weight loss SCAN-CARDIAC REHABILITATION 12/19/2023 9:54 AM CDT PROTIME-INR Routine 12/19/2023 9:47 AM CDT Paroxysmal A-fib (HC) SCAN-CARDIAC REHABILITATION 12/17/2023 9:56 AM CDT INR,POCT Routine 12/12/2023 2:08 PM CDT Paroxysmal A-fib (HC) SCAN-CARDIAC REHABILITATION 12/12/2023 9:52 AM CDT SCAN-CARDIAC REHABILITATION 12/10/2023 9:54 AM CDT SCAN-CARDIAC REHABILITATION 12/08/2023 9:48 AM CDT PROTIME-INR Routine 12/05/2023 11:02 AM CDT Paroxysmal A-fib (HC) SCAN-CARDIAC REHABILITATION 12/05/2023 9:47 AM CDT SCAN-CARDIAC REHABILITATION 12/03/2023 9:55 AM CDT SCAN-CARDIAC REHABILITATION 12/01/2023 9:49 AM CDT INR,POCT Routine 11/28/2023 11:23 AM CDT Paroxysmal A-fib (HC) SCAN-CARDIAC REHABILITATION 11/28/2023 9:54 AM CDT SCAN-CARDIAC REHABILITATION 11/26/2023 10:03 AM CDT SCAN-CARDIAC REHABILITATION 11/26/2023 10:03 AM CDT SCAN-CARDIAC REHABILITATION 11/25/2023 10:12 AM CDT BASIC METABOLIC PANEL Routine 11/21/2023 8:38 AM CDT Stage 3a chronic kidney disease (HC) PROTIME-INR Routine 11/21/2023 8:38 AM CDT Paroxysmal A-fib (HC) VITAMIN B12 Routine 11/18/2023 3:02 PM CDT B12 deficiency HEMOGLOBIN Routine 11/18/2023 3:02 PM CDT Postoperative anemia BASIC METABOLIC PANEL Routine 11/18/2023 3:02 PM CDT Stage 3a chronic kidney disease (HC) PROTIME-INR Routine 11/18/2023 3:02 PM CDT S/P AVR (aortic valve replacement) XR CHEST 2 VIEWS PA AND LATERAL Routine 11/14/2023 1:29 PM CDT STREP A PCR ASHLEY 11/14/2023 12:49 PM CDT THROAT RAPID STREP A WITH REFLEX ASHLEY 11/14/2023 12:49 PM CDT SCAN-CARDIAC STRIP 11/14/2023 7:57 AM CDT CBC W PLT NO DIFF Early AM 11/14/2023 6:19 AM CDT BASIC METABOLIC PANEL Early AM 11/14/2023 6:19 AM CDT PROTIME-INR Early AM 11/14/2023 6:19 AM CDT SCAN-CARDIAC STRIP 11/13/2023 3:08 PM CDT SCAN-CARDIAC STRIP 11/13/2023 1:08 PM CDT LACTATE VENOUS Today 11/13/2023 12:44 PM CDT O2 SATURATION,MEASURED Today 12:44 PM CDT MAGNESIUM Early AM 11/13/2023 5:52 AM CDT LACTATE VENOUS Early AM 11/13/2023 5:52 AM CDT PHOSPHORUS Early AM 11/13/2023 5:52 AM CDT CBC W PLT NO DIFF Early AM 11/13/2023 5:52 AM CDT O2 SATURATION,MEASURED Early AM 5:52 AM CDT BASIC METABOLIC PANEL Early AM 11/13/2023 5:52 AM CDT PROTIME-INR Early AM 11/13/2023 5:52 AM CDT SCAN-CARDIAC STRIP 11/12/2023 9:27 PM CDT LACTATE VENOUS Timed 11/12/2023 8:46 PM CDT O2 SATURATION,MEASURED Today 6:22 PM CDT LACTATE VENOUS Today 11/12/2023 6:22 PM CDT LACTATE VENOUS Today 11/12/2023 2:15 PM CDT O2 SATURATION,MEASURED Today 4 2:15 PM CDT EKG 12 LEAD STAT 11/12/2023 7:51 AM CDT EKG 12 LEAD Routine 11/12/2023 7:50 AM CDT SCAN-CARDIAC STRIP 11/12/2023 7:47 AM CDT PHOSPHORUS ASHLEY 11/12/2023 6:08 AM CDT CBC W PLT NO DIFF Early AM 11/12/2023 6:08 AM CDT ALT (SGPT) Early AM 11/12/2023 6:08 AM CDT LACTATE VENOUS Early AM 11/12/2023 6:08 AM CDT BASIC METABOLIC PANEL Early AM 11/12/2023 6:08 AM CDT O2 SATURATION,MEASURED Early AM 6:08 AM CDT PROTIME-INR Early AM 11/12/2023 6:08 AM CDT SCAN-CARDIAC STRIP 11/12/2023 1:39 AM CDT SCAN-CARDIAC STRIP 11/11/2023 5:15 PM CDT PACER MANNY DUAL CHAMBER W REPROG Routine 11/11/2023 2:29 PM CDT POTASSIUM Timed 11/11/2023 2:13 PM CDT SCAN-CARDIAC STRIP 11/11/2023 9:46 AM CDT LACTATE VENOUS Early AM 11/11/2023 7:00 AM CDT ALT (SGPT) Early AM 11/11/2023 7:00 AM CDT BASIC METABOLIC PANEL Early AM 11/11/2023 7:00 AM CDT MAGNESIUM Early AM 11/11/2023 7:00 AM CDT O2 SATURATION,MEASURED Early AM 7:00 AM CDT PROTIME-INR Early AM 11/11/2023 7:00 AM CDT SCAN-CARDIAC STRIP 11/11/2023 6:08 AM CDT SCAN-CARDIAC STRIP 11/11/2023 2:19 AM CDT LACTATE VENOUS STAT 11/10/2023 3:17 PM CDT CREATININE STAT 11/10/2023 3:17 PM CDT ALT (SGPT) STAT 11/10/2023 3:17 PM CDT O2 SATURATION,MEASURED Today 4 11:31 AM CDT SCAN-CARDIAC STRIP 11/10/2023 10:19 AM CDT FERRITIN Add On 11/10/2023 5:53 AM CDT BASIC METABOLIC PANEL Early AM 11/10/2023 5:53 AM CDT HEMOGLOBIN Early AM 11/10/2023 5:53 AM CDT O2 SATURATION,MEASURED Early AM 5:53 AM CDT PROTIME-INR Early AM 11/10/2023 5:53 AM CDT SCAN-CARDIAC STRIP 11/09/2023 7:26 PM CDT GLUCOSE METER Timed 11/09/2023 4:42 PM CDT POTASSIUM Timed 11/09/2023 4:08 PM CDT GLUCOSE METER Timed 11/09/2023 11:41 AM CDT O2 SATURATION,MEASURED Today 4 11:09 AM CDT POTASSIUM Timed 11/09/2023 11:09 AM CDT GLUCOSE METER Timed 11/09/2023 8:27 AM CDT SCAN-CARDIAC STRIP 11/09/2023 7:34 AM CDT GLUCOSE METER Timed 11/09/2023 7:18 AM CDT HEMOGLOBIN Early AM 11/09/2023 5:27 AM CDT MAGNESIUM Early AM 11/09/2023 5:27 AM CDT HEPATIC FUNCTION PANEL Early AM 4 5:27 AM CDT BASIC METABOLIC PANEL Early AM 11/09/2023 5:27 AM CDT O2 SATURATION,MEASURED Early AM 4 5:27 AM CDT PROTIME-INR Early AM 11/09/2023 5:27 AM CDT SCAN-CARDIAC STRIP 11/09/2023 1:11 AM CDT GLUCOSE METER Timed 11/08/2023 9:48 PM CDT O2 SATURATION,MEASURED Today 4 2:38 PM CDT GLUCOSE METER Timed 11/08/2023 1:00 PM CDT HEPATIC FUNCTION PANEL ASHLEY 4 11:48 AM CDT O2 SATURATION,MEASURED Today 4 11:48 AM CDT POTASSIUM Timed 11/08/2023 11:48 AM CDT SCAN-CARDIAC STRIP 11/08/2023 9:38 AM CDT GLUCOSE METER Timed 11/08/2023 6:07 AM CDT BASIC METABOLIC PANEL Early AM 11/08/2023 6:05 AM CDT HEMOGLOBIN Early AM 11/08/2023 6:05 AM CDT LACTATE VENOUS Early AM 11/08/2023 6:05 AM CDT O2 SATURATION,MEASURED Early AM 6:05 AM CDT PROTIME-INR Early AM 11/08/2023 6:05 AM CDT GLUCOSE METER Timed 11/07/2023 10:10 PM CDT GLUCOSE METER Timed 11/07/2023 5:34 PM CDT O2 SATURATION,MEASURED Today 5:31 PM CDT SCAN-CARDIAC STRIP 11/07/2023 4:18 PM CDT TRANSFUSE RBC (NURSE COMMUNICATION ORDER) [facility] 11/07/2023 4:04 PM CDT ECHO TTE LIMITED WO CONTRAST W COLOR W LTD DOPPLER Routine 11/07/2023 3:45 PM CDT RBC W TYPE AND SCREEN [facility] 11/07/2023 12:10 PM CDT RED BLOOD CELLS EA UNIT [facility] 11/07/19 12:08 PM CDT [facility] DRAW ONLY Today 11/07/2023 11:38 AM CDT LACTATE VENOUS Today 11/07/2023 11:38 AM CDT O2 SATURATION,MEASURED Today 11:38 AM CDT GLUCOSE METER Timed 11/07/2023 11:29 AM CDT GLUCOSE METER Timed 11/07/2023 9:20 AM CDT EKG 12 LEAD Routine 11/07/2023 7:21 AM CDT HEPATIC FUNCTION PANEL ASHLEY 4 4:58 AM CDT LACTATE VENOUS Early AM 11/07/2023 4:58 AM CDT O2 SATURATION,MEASURED Early AM 4 4:58 AM CDT CBC W PLT NO DIFF Early AM 11/07/2023 4:58 AM CDT BASIC METABOLIC PANEL Early AM 11/07/2023 4:58 AM CDT PROTIME-INR Early AM 11/07/2023 4:58 AM CDT GLUCOSE METER Timed 11/06/2023 9:40 PM CDT POTASSIUM Timed 11/06/2023 9:32 PM CDT GLUCOSE METER Timed 11/06/2023 5:58 PM CDT PACER MANNY DUAL CHAMBER WO REPROG Routine 11/06/2023 3:32 PM CDT EKG 12 LEAD STAT 11/06/2023 2:46 PM CDT LACTATE VENOUS Timed 11/06/2023 2:30 PM CDT O2 SATURATION,MEASURED Today 4 2:30 PM CDT POTASSIUM Timed 11/06/2023 2:30 PM CDT LACTATE VENOUS Today 11/06/2023 12:26 PM CDT GLUCOSE METER Timed 11/06/2023 12:19 PM CDT LACTATE VENOUS Timed 11/06/2023 11:08 AM CDT LACTATE VENOUS Today 11/06/2023 8:42 AM CDT POTASSIUM Today 11/06/2023 8:42 AM CDT GLUCOSE METER Timed 11/06/2023 7:02 AM CDT MAGNESIUM ASHLEY 11/06/2023 2:25 AM CDT AST (SGOT) Early AM 11/06/2023 2:25 AM CDT ALT (SGPT) Early AM 11/06/2023 2:25 AM CDT O2 SATURATION,MEASURED Early AM 2:25 AM CDT BASIC METABOLIC PANEL Early AM 11/06/2023 2:25 AM CDT CBC W PLT NO DIFF Early AM 11/06/2023 2:25 AM CDT PROTIME-INR Early AM 11/06/2023 2:25 AM CDT GLUCOSE METER Timed 11/05/2023 10:12 PM CDT GLUCOSE METER Timed 11/05/2023 6:15 PM CDT INSERT PICC LINE Routine 11/05/2023 5:55 PM CDT XR CHEST 1 VIEW PORTABLE STAT 024 5:52 PM CDT GLUCOSE METER Timed 11/05/2023 1:04 PM CDT O2 SATURATION,MEASURED Timed 1:04 PM CDT EP CARDIOVERSION Routine 11/05/2023 12:50 PM CDT XR CHEST 1 VIEW PORTABLE ASHLEY 024 11:44 AM CDT ECHO JEAN WO CONTRAST W COLOR W LTD DOPPLER Routine 11/05/2023 11:24 AM CDT PACER MANNY DUAL CHAMBER WO REPROG Routine 11/05/2023 11:15 AM CDT GLUCOSE METER Timed 11/05/2023 8:32 AM CDT POTASSIUM Timed 11/05/2023 8:27 AM CDT O2 SATURATION,MEASURED Early AM 5:34 AM CDT PROTIME-INR Early AM 11/05/2023 4:21 AM CDT MAGNESIUM Early AM 11/05/2023 4:21 AM CDT HEPATIC FUNCTION PANEL Early AM 4 4:21 AM CDT CBC W PLT NO DIFF Early AM 11/05/2023 4:21 AM CDT FACTOR 10 CHROMOGENIC Early AM 11/05/2023 4:21 AM CDT RENAL FUNCTION PANEL Early AM 11/05/2023 4:21 AM CDT PROTIME-INR Timed 11/05/2023 12:10 AM CDT LACTATE VENOUS Today 11/05/2023 12:10 AM CDT O2 SATURATION,MEASURED Timed 12:10 AM CDT POTASSIUM Timed 11/05/2023 12:10 AM CDT GLUCOSE METER Timed 11/04/2023 10:37 PM CDT SCAN-CARDIAC STRIP 11/04/2023 7:30 PM CDT GLUCOSE METER Timed 11/04/2023 6:13 PM CDT LACTATE VENOUS Timed 11/04/2023 6:06 PM CDT O2 SATURATION,MEASURED Timed 6:06 PM CDT POTASSIUM Timed 11/04/2023 6:06 PM CDT GLUCOSE METER Timed 11/04/2023 1:36 PM CDT LACTATE VENOUS Timed 11/04/2023 1:36 PM CDT LACTATE VENOUS Timed 11/04/2023 11:31 AM CDT O2 SATURATION,MEASURED Timed 11:31 AM CDT POTASSIUM Timed 11/04/2023 11:31 AM CDT EKG 12 LEAD Routine 11/04/2023 10:59 AM CDT GLUCOSE METER Timed 11/04/2023 7:53 AM CDT O2 SATURATION,MEASURED STAT 5:23 AM CDT FACTOR 10 CHROMOGENIC ASHLEY 11/04/2023 4:56 AM CDT MAGNESIUM ASHLEY 11/04/2023 4:56 AM CDT HEPATIC FUNCTION PANEL Early AM 4:56 AM CDT CBC W PLT NO DIFF Early AM 11/04/2023 4:56 AM CDT RENAL FUNCTION PANEL Early AM 11/04/2023 4:56 AM CDT PROTIME-INR Early AM 11/04/2023 4:56 AM CDT O2 SATURATION,MEASURED STAT 4 10:08 PM CDT GLUCOSE METER Timed 11/03/2023 10:04 PM CDT GLUCOSE METER Timed 11/03/2023 6:23 PM CDT O2 SATURATION,MEASURED Timed 4 6:23 PM CDT O2 SATURATION,MEASURED Timed 4 3:11 PM CDT LACTATE VENOUS Timed 11/03/2023 1:01 PM CDT GLUCOSE METER Timed 11/03/2023 11:45 AM CDT LACTATE VENOUS Timed 11/03/2023 11:44 AM CDT O2 SATURATION,MEASURED Timed 4 11:44 AM CDT US ABDOMEN LIMITED RUQ WITH DUPLEX PORTABLE STAT 11/03/2023 9:52 AM CDT US ABDOMEN DUPLEX COMPLETE PORTABLE STAT 11/03/2023 9:51 AM CDT POTASSIUM Timed 11/03/2023 9:07 AM CDT GLUCOSE METER Timed 11/03/2023 9:06 AM CDT O2 SATURATION,MEASURED Early AM 4 5:15 AM CDT MAGNESIUM Early AM 11/03/2023 4:04 AM CDT HEPATIC FUNCTION PANEL Early AM 4 4:04 AM CDT BASIC METABOLIC PANEL Early AM 11/03/2023 4:04 AM CDT PLATELET COUNT Early AM 11/03/2023 4:04 AM CDT HEMOGLOBIN Early AM 11/03/2023 4:04 AM CDT PROTIME-INR Early AM 11/03/2023 4:04 AM CDT LACTATE VENOUS Today 11/03/2023 4:04 AM CDT POTASSIUM Timed 11/03/2023 1:58 AM CDT GLUCOSE METER Timed 11/02/2023 10:40 PM CDT O2 SATURATION,MEASURED Timed 10:23 PM CDT LACTATE VENOUS Timed 11/02/2023 10:23 PM CDT POTASSIUM Timed 11/02/2023 10:23 PM CDT O2 SATURATION,MEASURED Timed 7:58 PM CDT GLUCOSE METER Timed 11/02/2023 4:57 PM CDT O2 SATURATION,MEASURED Timed 4:53 PM CDT POTASSIUM Timed 11/02/2023 4:53 PM CDT LACTATE VENOUS Today 11/02/2023 4:53 PM CDT GLUCOSE METER Timed 11/02/2023 11:55 AM CDT O2 SATURATION,MEASURED Timed 11:50 AM CDT LACTATE VENOUS Today 11/02/2023 11:50 AM CDT GLUCOSE METER Timed 11/02/2023 8:11 AM CDT POTASSIUM Timed 11/02/2023 8:11 AM CDT O2 SATURATION,MEASURED Timed 5:30 AM CDT PHOSPHORUS Early AM 11/02/2023 3:46 AM CDT [facility] DRAW ONLY Early AM 11/02/2023 3:46 AM CDT MAGNESIUM Early AM 11/02/2023 3:46 AM CDT HEPATIC FUNCTION PANEL Early AM 3:46 AM CDT BASIC METABOLIC PANEL Early AM 11/02/2023 3:46 AM CDT CBC W PLT NO DIFF Early AM 11/02/2023 3:46 AM CDT LACTATE VENOUS Today 11/02/2023 3:46 AM CDT PROTIME-INR Early AM 11/02/2023 3:46 AM CDT POTASSIUM Timed 11/02/2023 1:49 AM CDT LACTATE VENOUS Today 11/02/2023 1:49 AM CDT O2 SATURATION,MEASURED Timed 11:29 PM CDT GLUCOSE METER Timed 11/01/2023 10:04 PM CDT POTASSIUM Timed 11/01/2023 9:56 PM CDT LACTATE VENOUS Today 11/01/2023 9:56 PM CDT O2 SATURATION,MEASURED Timed 8:58 PM CDT GLUCOSE METER Timed 11/01/2023 5:36 PM CDT COMP METABOLIC PANEL Timed 11/01/2023 5:31 PM CDT PROTIME-INR Timed 11/01/2023 5:31 PM CDT LACTATE VENOUS Today 11/01/2023 5:31 PM CDT GLUCOSE METER Timed 11/01/2023 4:15 PM CDT O2 SATURATION,MEASURED Timed 4:11 PM CDT LACTATE VENOUS Timed 11/01/2023 4:[address] CHEST WO Routine 11/01/2023 2:56 PM CDT MAGNESIUM Today 11/01/2023 1:27 PM CDT POTASSIUM STAT 11/01/2023 1:27 PM CDT LACTATE VENOUS Today 11/01/2023 1:27 PM CDT URINALYSIS MICROSCOPIC Timed 1:22 PM CDT UA W/ SEDIMENT EXAM REFLEXED PER CRITERIA Today 11/01/2023 1:22 PM CDT PACER MANNY DUAL CHAMBER W REPROG Routine 11/01/2023 12:58 PM CDT GLUCOSE METER Timed 11/01/2023 12:14 PM CDT O2 SATURATION,MEASURED Timed 12:03 PM CDT LACTATE VENOUS Timed 11/01/2023 10:50 AM CDT ECHO TTE LIMITED WO CONTRAST W COLOR W LTD DOPPLER STAT 11/01/2023 9:49 AM CDT GLUCOSE METER Timed 11/01/2023 7:59 AM CDT BLOOD GAS,VENOUS Timed 11/01/2023 7:49 AM CDT O2 SATURATION,MEASURED Timed 4 7:49 AM CDT LACTATE VENOUS Timed 11/01/2023 7:49 AM CDT PROTIME-INR STAT 11/01/2023 5:29 AM CDT XR CHEST 1 VIEW PORTABLE Routine 024 5:24 AM CDT COMPREHENSIVE BLOOD GAS MIXED VENOUS Timed 11/01/2023 4:53 AM CDT LIPASE ASHLEY 11/01/2023 4:03 AM CDT HEPATIC FUNCTION PANEL ASHLEY 4 4:03 AM CDT LACTATE VENOUS Early AM 11/01/2023 4:03 AM CDT MAGNESIUM Early AM 11/01/2023 4:03 AM CDT BASIC METABOLIC PANEL Early AM 11/01/2023 4:03 AM CDT CBC W PLT NO DIFF Early AM 11/01/2023 4:03 AM CDT O2 SATURATION,MEASURED STAT 4 8:48 PM CDT LACTATE VENOUS Timed 10/31/2023 8:48 PM CDT POTASSIUM Timed 10/31/2023 7:44 PM CDT O2 SATURATION,MEASURED STAT 4 6:22 PM CDT O2 SATURATION,MEASURED STAT 4 3:26 PM CDT O2 SATURATION,MEASURED STAT 4 1:09 PM CDT GLUCOSE METER Timed 10/31/2023 12:39 PM CDT LACTATE VENOUS Timed 10/31/2023 10:40 AM CDT O2 SATURATION,MEASURED Timed 4 10:40 AM CDT COMPREHENSIVE BLOOD GAS VENOUS Timed 10/31/2023 8:58 AM CDT GLUCOSE METER Timed 10/31/2023 8:31 AM CDT XR CHEST 1 VIEW PORTABLE Routine 024 4:59 AM CDT PERIPHERAL BLD MORPHOLOGY Early AM 10/31/2023 4:00 AM CDT HEPATIC FUNCTION PANEL Add On 4 4:00 AM CDT CBC WITH AUTO DIFFERENTIAL Early AM 10/31/2023 4:00 AM CDT O2 SATURATION,MEASURED STAT 4 4:00 AM CDT RETICULOCYTES Early AM 10/31/2023 4:00 AM CDT CBC WITH AUTO DIFFERENTIAL Early AM 10/31/2023 4:00 AM CDT MAGNESIUM Early AM 10/31/2023 4:00 AM CDT BASIC METABOLIC PANEL Early AM 10/31/2023 4:00 AM CDT HEPARIN ANTIBODIES (HIT) Early AM 024 4:00 AM CDT PROTIME-INR Early AM 10/31/2023 4:00 AM CDT O2 SATURATION,MEASURED STAT 4 10:59 PM CDT GLUCOSE METER Timed 10/30/2023 9:34 PM CDT O2 SATURATION,MEASURED Timed 4 6:49 PM CDT GLUCOSE METER Timed 10/30/2023 5:37 PM CDT O2 SATURATION,MEASURED Timed 4 4:43 PM CDT COMPREHENSIVE BLOOD GAS MIXED VENOUS Timed 10/30/2023 12:48 PM CDT O2 SATURATION,MEASURED Timed 4 12:26 PM CDT XR CHEST 1 VIEW PORTABLE Routine 024 10:51 AM CDT O2 SATURATION,MEASURED Timed 4 10:29 AM CDT HEPARIN ANTIBODIES (HIT) ASHLEY 024 8:48 AM CDT GLUCOSE METER Timed 10/30/2023 8:40 AM CDT XR CHEST 1 VIEW PORTABLE Routine 024 4:54 AM CDT PLATELET ESTIMATE Timed 10/30/2023 3:58 AM CDT O2 SATURATION,MEASURED Timed 4 3:58 AM CDT CBC W PLT NO DIFF Early AM 10/30/2023 3:58 AM CDT MAGNESIUM Early AM 10/30/2023 3:58 AM CDT HEPATIC FUNCTION PANEL Early AM 4 3:58 AM CDT BASIC METABOLIC PANEL Early AM 10/30/2023 3:58 AM CDT PROTIME-INR Early AM 10/30/2023 3:58 AM CDT BLOOD GAS,VENOUS Timed 10/29/2023 11:59 PM CDT O2 SATURATION,MEASURED Timed 4 11:59 PM CDT GLUCOSE METER Timed 10/29/2023 10:23 PM CDT LACTATE VENOUS Timed 10/29/2023 8:39 PM CDT O2 SATURATION,MEASURED Timed 4 8:39 PM CDT GLUCOSE METER Timed 10/29/2023 5:46 PM CDT ECHO TTE LIMITED WO CONTRAST W COLOR W LTD DOPPLER Routine 10/29/2023 3:19 PM CDT O2 SATURATION,MEASURED Timed 4 2:47 PM CDT XR CHEST 1 VIEW PORTABLE Routine 024 2:16 PM CDT GLUCOSE METER Timed 10/29/2023 1:00 PM CDT BASIC METABOLIC PANEL Timed 10/29/2023 11:56 AM CDT LACTATE ARTERIAL Timed 10/29/2023 11:56 AM CDT O2 SATURATION,MEASURED Timed 4 11:56 AM CDT XR CHEST 1 VIEW PORTABLE Routine 024 9:03 AM CDT GLUCOSE METER Timed 10/29/2023 7:58 AM CDT O2 SATURATION,MEASURED Today 4 5:10 AM CDT EKG 12 LEAD STAT 10/29/2023 4:33 AM CDT HEPATIC FUNCTION PANEL ASHLEY 3:32 AM CDT PLATELET ESTIMATE Timed 10/29/2023 3:32 AM CDT [facility] DRAW ONLY Today 10/29/2023 3:32 AM CDT LACTATE ARTERIAL Today 10/29/2023 3:32 AM CDT MAGNESIUM Today 10/29/2023 3:32 AM CDT HEMOGLOBIN Early AM 10/29/2023 3:32 AM CDT PLATELET COUNT Early AM 10/29/2023 3:32 AM CDT BASIC METABOLIC PANEL Early AM 10/29/2023 3:32 AM CDT PROTIME-INR Early AM 10/29/2023 3:32 AM CDT O2 SATURATION,MEASURED Timed 10:21 PM CDT LACTATE VENOUS Timed 10/28/2023 10:21 PM CDT GLUCOSE METER Timed 10/28/2023 10:20 PM CDT GLUCOSE METER Timed 10/28/2023 5:50 PM CDT LACTATE VENOUS Timed 10/28/2023 5:44 PM CDT O2 SATURATION,MEASURED Timed 4 5:44 PM CDT O2 SATURATION,MEASURED STAT 4 3:28 PM CDT COMPREHENSIVE BLOOD GAS MIXED VENOUS Timed 10/28/2023 2:48 PM CDT LACTATE VENOUS Timed 10/28/2023 2:07 PM CDT O2 SATURATION,MEASURED Timed 2:07 PM CDT PACER MANNY DUAL CHAMBER W REPROG Routine 10/28/2023 12:58 PM CDT LACTATE VENOUS Timed 10/28/2023 11:51 AM CDT GLUCOSE METER Timed 10/28/2023 11:50 AM CDT LACTATE VENOUS Today 10/28/2023 10:00 AM CDT O2 SATURATION,MEASURED Timed 10:00 AM CDT ECHO TTE COMPLETE W CONTRAST ASHLEY 10/28/2023 9:25 AM CDT GLUCOSE METER Timed 10/28/2023 9:18 AM CDT EKG 12 LEAD Early AM 10/28/2023 6:49 AM CDT GLUCOSE METER Timed 10/28/2023 6:32 AM CDT COMPREHENSIVE BLOOD GAS MIXED VENOUS Timed 10/28/2023 5:39 AM CDT GLUCOSE METER Timed 10/28/2023 5:27 AM CDT GLUCOSE METER Timed 10/28/2023 4:28 AM CDT HEPATIC FUNCTION PANEL ASHLEY 4:20 AM CDT MAGNESIUM STAT 10/28/2023 4:20 AM CDT PLATELET COUNT Early AM 10/28/2023 4:20 AM CDT [facility] D[facility] ONLY Early AM 10/28/2023 4:20 AM CDT PROTIME-INR Early AM 10/28/2023 4:20 AM CDT HEMOGLOBIN Early AM 10/28/2023 4:20 AM CDT BASIC METABOLIC PANEL Early AM 10/28/2023 4:20 AM CDT XR CHEST 1 VIEW PORTABLE Routine 024 4:16 AM CDT COMPREHENSIVE BLOOD GAS ARTERIAL Timed 10/28/2023 12:36 AM CDT GLUCOSE METER Timed 10/27/2023 10:37 PM CDT O2 SATURATION,MEASURED ASHLEY 9:16 PM CDT GLUCOSE METER Timed 10/27/2023 8:54 PM CDT ARTERIAL BLOOD GAS ASHLEY 10/27/2023 8:48 PM CDT [facility] DRAW ONLY Timed 10/27/2023 8:48 PM CDT GLUCOSE METER Timed 10/27/2023 7:37 PM CDT O2 SATURATION,MEASURED Timed 4 6:05 PM CDT BASIC METABOLIC PANEL Timed 10/27/2023 5:20 PM CDT GLUCOSE METER Timed 10/27/2023 5:13 PM CDT O2 SATURATION,MEASURED Timed 4 3:50 PM CDT GLUCOSE METER Timed 10/27/2023 3:39 PM CDT GLUCOSE METER Timed 10/27/2023 2:17 PM CDT O2 SATURATION,MEASURED Timed 1:47 PM CDT [facility] DRAW ONLY Timed 10/27/2023 1:35 PM CDT MAGNESIUM STAT 10/27/2023 1:27 PM CDT POTASSIUM STAT 10/27/2023 1:27 PM CDT CARDIAC THROMBOELASTOGRAPHY STAT 10/27/2023 1:27 PM CDT FIBRINOGEN,QUANTITATIVE STAT 10/27/19 1:27 PM CDT THROMBIN TIME STAT 10/27/2023 1:27 PM CDT PROTIME-INR STAT 10/27/2023 1:27 PM CDT APTT STAT 10/27/2023 1:27 PM CDT PLATELET COUNT STAT 10/27/2023 1:27 PM CDT HEMOGLOBIN STAT 10/27/2023 1:27 PM CDT EKG 12 LEAD Routine 10/27/2023 1:13 PM CDT GLUCOSE METER Timed 10/27/2023 1:12 PM CDT TRANSFUSE RBC (NURSE COMMUNICATION ORDER) STAT 10/27/2023 1:04 PM CDT TRANSFUSE RBC (NURSE COMMUNICATION ORDER) STAT 10/27/2023 12:55 PM CDT JEAN Routine 10/27/2023 12:34 PM CDT HG KIT PR5 Routine 10/27/2023 12:34 PM CDT [facility] DRSG PR1 Routine 10/27/2023 12:34 PM CDT [facility] DRSG PR5 Routine 10/27/2023 12:34 PM CDT [facility] TUBING PR5 Routine 10/27/2023 12:34 PM CDT [facility] KIT MONITORING PR5 Routine 10/27/19 24 12:34 PM CDT [facility] KIT MONITORING PR10 Routine 024 12:34 PM CDT [facility] TUBING PR1 Routine 10/27/2023 12:34 PM CDT [facility] ANES US GUIDE FOR VASC ACCESS Routine 10/27/2023 12:34 PM CDT [facility] TUBING PR10 Routine 10/27/2023 12:34 PM CDT [facility] STOPCOCK PR5 Routine 10/27/2023 12:34 PM CDT [facility] INTRDCR NON GUIDING NON LASER PR40 Routine 10/27/2023 12:34 PM CDT [facility] CATH GUIDE PR30 Routine 10/27/2023 12:34 PM CDT RBC W/O TYPE & SCREEN STAT 10/27/2023 12:28 PM CDT TRANSFUSE CRYOPRECIPITATE (NURSE COMMUNICATION ORDER) Today 10/27/2023 12:27 PM CDT RED BLOOD CELLS EA UNIT STAT 10/27/19 12:26 PM CDT RED BLOOD CELLS EA UNIT STAT 10/27/19 12:26 PM CDT ECHO JEAN INTRAOPERATIVE Routine 10/27/19 12:22 PM CDT GLUCOSE METER Timed 10/27/2023 12:07 PM CDT FIBRINOGEN,QUANTITATIVE STAT 10/27/19 12:05 PM CDT THROMBIN TIME STAT 10/27/2023 12:05 PM CDT PROTIME-INR STAT 10/27/2023 12:05 PM CDT APTT STAT 10/27/2023 12:05 PM CDT PLATELET COUNT STAT 10/27/2023 12:05 PM CDT HEMOGLOBIN STAT 10/27/2023 12:05 PM CDT TRANSFUSE PLT (NURSE COMMUNICATION ORDER) Today 10/27/2023 11:56 AM CDT PLATELET ORDER Today 10/27/2023 11:35 AM CDT CRYOPRECIPITATE ORDER Today 10/27/2023 11:34 AM CDT PLATELET EA UNIT Today 10/27/2023 11:34 AM CDT CARDIAC THROMBOELASTOGRAPHY STAT 10/27/2023 11:32 AM CDT CRYOPRECIPITATE EA UNIT Today 10/27/19 24 11:30 AM CDT XR CHEST 1 VIEW PORTABLE STAT 024 11:27 AM CDT TRANSFUSE PLASMA (NURSE COMMUNICATION ORDER) STAT 10/27/2023 11:24 AM CDT TRANSFUSE PLASMA (NURSE COMMUNICATION ORDER) STAT 10/27/2023 11:06 AM CDT O2 SATURATION,MEASURED Timed 10:54 AM CDT PLASMA ORDER STAT 10/27/2023 10:50 AM CDT PLASMA SNGL DON FFPEA UNIT STAT 10/27/2023 10:47 AM CDT PLASMA SNGL DON FFPEA UNIT STAT 10/27/2023 10:47 AM CDT GLUCOSE METER Timed 10/27/2023 10:46 AM CDT CREATININE ASHLEY 10/27/2023 10:36 AM CDT FIBRINOGEN,QUANTITATIVE STAT 10/27/19 24 10:36 AM CDT THROMBIN TIME STAT 10/27/2023 10:36 AM CDT PROTIME-INR STAT 10/27/2023 10:36 AM CDT APTT STAT 10/27/2023 10:36 AM CDT PLATELET COUNT STAT 10/27/2023 10:36 AM CDT MAGNESIUM STAT 10/27/2023 10:36 AM CDT POTASSIUM STAT 10/27/2023 10:36 AM CDT HEMOGLOBIN STAT 10/27/2023 10:36 AM CDT FIBRINOGEN,QUANTITATIVE STAT 10/27/19 24 10:00 AM CDT APTT STAT 10/27/2023 10:00 AM CDT PROTIME-INR STAT 10/27/2023 10:00 AM CDT PLATELET COUNT STAT 10/27/2023 10:00 AM CDT PATH TISSUE EXAM Today 10/27/2023 8:58 AM CDT PACER MANNY DUAL CHAMBER W REPROG Routine 10/27/2023 8:37 AM CDT ENDOTRACHEAL TUBE Routine 10/27/2023 7:46 AM CDT ENDOTRACHEAL TUBE Routine 10/27/2023 7:46 AM CDT ENDOTRACHEAL TUBE Routine 10/27/2023 7:46 AM CDT RBC W/O TYPE & SCREEN STAT 10/27/2023 7:12 AM CDT RED BLOOD CELLS EA UNIT STAT 10/27/19 24 7:09 AM CDT RED BLOOD CELLS EA UNIT STAT 10/27/19 24 7:09 AM CDT [facility] KIT PR5 Routine 10/27/2023 7:02 AM CDT [facility] DRSG PR5 Routine 10/27/2023 7:02 AM CDT [facility] DRSG PR1 Routine 10/27/2023 7:02 AM CDT [facility] TUBING PR20 Routine 10/27/2023 7:02 AM CDT [facility] TUBING PR1 Routine 10/27/2023 7:02 AM CDT [facility] ANES ARTERIAL CATH FOR SAMPLE MONITOR TRANS Routine 10/27/2023 7:02 AM CDT [facility] ANES US GUIDE FOR VASC ACCESS Routine 10/27/2023 7:02 AM CDT [facility] CATH PR5 Routine 10/27/2023 7:02 AM CDT REPLACEMENT AORTIC VALVE 024 6:57 AM CDT Aortic Regurg Case Notes REPLACEMENT AORTIC VALVE (TISSUE) W/JEAN, REPLACEMENT ASCENDING AORTA, POSS LAAL, POSS MAUREEN STERNOTOMY TYPE & SCREEN Preop 10/27/2023 6:11 AM CDT GLUCOSE, FASTING Preop 10/27/2023 6:11 AM CDT SCAN-OPERATIVE/PROCEDURE REPORT 10/27/2023 12:00 AM CDT BASIC METABOLIC PANEL Routine 10/16/2023 2:35 PM CDT Stage 3a chronic kidney disease (HC) CBC W PLT NO DIFF Routine 10/16/2023 2:35 PM CDT Stage 3a chronic kidney disease (HC) CVL CORONARY ANGIOGRAM Routine 11:47 AM CDT 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 INR 1.3(H) <1.3 01/02/2024 10:35 AM CDT [facility] Blood BLOOD SPECIMEN / Unknown 01/02/2024 10:33 AM CDT 01/02/2024 10:35 AM CDT Narrative [facility] - 01/02/2024 10:35 AM CDT ?Therapeutic Range 2.0-3.0 for most anticoagulated patients 2.5-3.5 or 4.0 for high risk patients John Merchant MD LABORATORY [facility] [address] [place] [address], [place] [phone] * SCAN-CARDIAC REHABILITATION (01/02/2024 9:51 AM CDT) Only the most recent of18 resultswithin the time period is included. Scanner OTHER * CT CHEST ABDOMEN PELVIS W (12/30/2023 9:52 AM CDT) Anatomical Region Laterality Modality Abdomen, Pelvis, AORTA, LIVER, SPLEEN, CHEST Computed Tomography 12/30/2023 1:45 PM CDT Impressions 12/30/2023 1:45 PM CDT 1. Postoperative cardiac surgical changes. 2. Interval diastasis of the sternotomy increasing since prior CT chest now measuring about 1 centimeter at the manubrium. Correlate with clinical exam. 3. No additional suspicious lesions masses or adenopathy chest abdomen or pelvis. 4. Extensive cortical scarring in both kidneys. Please note that all CT scans at this facility use dose modulation, iterative reconstruction, and/or weight-based dosing when appropriate to reduce radiation dose to as low as reasonably achievable. Dictated by Song Kincaid MD @ 12/30/2023 1:45:37 PM (Electronically Signed) Narrative 12/30/2023 1:45 PM CDT For Patients: ??As a result of the Century Cures Act, medical imaging exams and procedure reports are released immediately into your electronic medical record. ??You may view this report before your referring provider. ??If you have questions, please contact your health care provider. INDICATION: Abnormal weight loss TECHNIQUE: CT scan chest abdomen pelvis. IV contrast. Omnipaque 90 cc. COMPARISON: Chest CT scan without contrast November 01, 2023 FINDINGS: Chest: Basilar scarring in the lungs. No suspicious nodules. Postoperative cardiac surgical changes. Of note there has been some increased diastasis at the sternotomy since the prior exam. Aortic valve prosthesis with ligation of left atrial appendage surgical clip. Intracardiac pacemaker leads. No adenopathy. Abdomen: No suspicious lesions of the liver spleen pancreas or adrenal glands. No suspicious adenopathy. No hydronephrosis or renal mass lesions. Extensive cortical scarring is present in both kidneys. Pelvis: Prostate calcification. The bladder is unremarkable. No free fluid. Skeletal: No suspicious lesions. Discogenic narrowing L5-S1. Procedure Note Song Kincaid MD - 12/30/2023 For Patients: As a result of the Century Cures Act, medical imagingexams and procedure reports are released immediately into your electronicmedical record. You may view this report before your referring provider.If you have questions, please contact your health care provider. INDICATION: Abnormal weight loss TECHNIQUE: CT scan chest abdomen pelvis. IV contrast. Omnipaque 90 cc. COMPARISON: Chest CT scan without contrast November 01, 2023 FINDINGS: Chest: Basilar scarring in the lungs. No suspicious nodules. Postoperative cardiac surgical changes. Of note there has been someincreased diastasis at the sternotomy since the prior exam. Aortic valveprosthesis with ligation of left atrial appendage surgical clip.Intracardiac pacemaker leads. No adenopathy. Abdomen: No suspicious lesions of the liver spleen pancreas or adrenal glands. No suspicious adenopathy. No hydronephrosis or renal mass lesions. Extensive cortical scarring ispresent in both kidneys. Pelvis: Prostate calcification. The bladder is unremarkable. No free fluid. Skeletal: No suspicious lesions. Discogenic narrowing L5-S1. IMPRESSION: 1. Postoperative cardiac surgical changes. 2. Interval diastasis of the sternotomy increasing since prior CT chestnow measuring about 1 centimeter at the manubrium. Correlate with clinicalexam. 3. No additional suspicious lesions masses or adenopathy chest abdomen orpelvis. 4. Extensive cortical scarring in both kidneys. Please note that all CT scans at this facility use dose modulation,iterative reconstruction, and/or weight-based dosing when appropriate toreduce radiation dose to as low as reasonably achievable. Dictated by Song Kincaid MD @ 12/30/2023 1:45:37 PM (Electronically Signed) John Merchant MD CT * (ABNORMAL) PROTIME-INR (12/26/2023 11:38 AM CDT) Only the most recent of29 resultswithin the time period is included. INR 1.4(H) <1.3 12/26/2023 3:43 PM CDT [facility] PROTIME 15.3(H) 10.3 - 12.3 sec 12/26/2023 3:43 PM CDT [facility] Blood BLOOD SPECIMEN / Unknown Venipuncture / Unknown 12/26/2023 11:38 AM CDT 12/26/2023 11:40 AM CDT Narrative [facility] - 12/26/2023 3:43 PM CDT ?Therapeutic Range 2.0-3.0 for most anticoagulated patients 2.5-3.5 or 4.0 for high risk patients The INR is only used for patients on stable oral anticoagulant therapy. It makes no significant contribution to the diagnosis or treatment of patients whose Protime is prolonged for other reasons. INR results are increased when heparin levels exceed 1.0 U/mL, which corresponds to an aPTT >125 seconds if the patient is on UFH. John Merchant MD HEMATOLOGY Performing Organization Address [facility] Co de Phone Number [facility] [address] [place] [address], * AFP TUMOR MARKER SERUM (12/26/2023 11:38 AM CDT) AFP TUMOR MARKER,SERUM 1.9 <=8.3 ng/mL 12/26/2023 11:12 PM CDT [facility] Blood BLOOD SPECIMEN / Unknown Venipuncture / Unknown 12/26/2023 11:38 AM CDT 12/26/2023 11:40 AM CDT Narrative [facility] - 12/26/2023 11:12 PM CDT The test method changed on 07/23/2022. If this test has been used for serial monitoring, rebaselining is recommended. Rebaselining consists of 2 measurements, collected 3-6 weeks apart. The Reggie Elecsys AFP assay is an electrochemiluminescence immunoassay ECLIA performed on the Reggie Paulino e immunoassy analyzers. Values obtained with different assay methods may be different and cannot be used interchangeably. Biotin supplements may cause clinically significant interference for this test assay. If interference is suspected, it is strongly recomended that biotin is discontinued for at least one week prior to retesting. John Merchant MD SEND OUTS Performing Organization Address City/[facility]/ZIP Co de Phone Number [facility] [address] [place] [address], [place] * (ABNORMAL) LIVER PANEL (HEPATIC FUNCTION PANEL) (12/26/2023 11:38 AM CDT) Only the most recent of14 resultswithin the time period is included. ALBUMIN 4.2 4.0 - 4.9 g/dL 12/26/2023 11:12 PM CDT [facility] PROTEIN,TOTAL 6.5 6.0 - 8.0 g/dL 12/26/2023 11:12 PM CDT [facility] BILIRUBIN,TOTAL 0.6 0.0 - 1.2 mg/dL 12/26/2023 11:12 PM CDT [facility] BILIRUBIN,DIRECT 0.2 0.0 - 0.3 mg/dL 12/26/2023 11:12 PM CDT [facility] BILIRUBIN,INDIRE CT 0.4 0.2 - 0.8 mg/dL 12/26/2023 11:12 PM CDT [facility] ALK PHOSPHATASE 110 40 - 129 IU/L 12/26/2023 11:12 PM CDT [facility] ALT (SGPT) 134(H) 10 - 50 IU/L 12/26/2023 11:12 PM CDT [facility] AST (SGOT) 383(H) 10 - 50 IU/L 12/26/2023 11:[address] [facility] Blood BLOOD SPECIMEN / Unknown Venipuncture / Unknown 12/26/2023 11:38 AM CDT 12/26/2023 11:40 AM CDT John Merchant MD CHEMISTRY Performing Organization Address City/[facility]/ZIP Co de Phone Number [facility] [address] [place] [address], [place] * (ABNORMAL) CBC WITH AUTO DIFFERENTIAL (12/19/2023 3:35 PM CDT) Only the most recent of2 resultswithin the time period is included. [facility] WHITE BLOOD COUNT 7.2 4.5 - 11.0 thou/cu mm 12/19/2023 3:40 PM CDT [facility] RED BLOOD COUNT 4.17(L) 4.30 - 5.90 mil/cu mm 12/19/2023 3:40 PM CDT [facility] HEMOGLOBIN 13.1(L) 13.5 - 17.5 g/dL 12/19/2023 3:40 PM CDT [facility] HEMATOCRIT 40.1 37.0 - 53.0 % 12/19/2023 3:40 PM CDT [facility] MCV 96 80 - 100 fL 12/19/2023 3:40 PM CDT [facility] MCH 31.4 26.0 - 34.0 pg 12/19/2023 3:40 PM CDT [facility] MCHC 32.7 32.0 - 36.0 g/dL 12/19/2023 3:40 PM CDT [facility] RDW 17.1(H) 11.5 - 15.5 % 12/19/2023 3:40 PM CDT [facility] PLATELET COUNT 294 140 - 440 thou/cu mm 12/19/2023 3:40 PM CDT [facility] MPV 9.6 6.5 - 11.0 fL 12/19/2023 3:40 PM CDT [facility] % NEUT 66.4 % 12/19/2023 3:40 PM CDT [facility] % LYMPH 19.2 % 12/19/2023 3:40 PM CDT [facility] % MONO 10.2 % 12/19/2023 3:40 PM CDT [facility] % EOS 3.9 % 12/19/2023 3:40 PM CDT [facility] % BASO 0.3 % 12/19/2023 3:40 PM CDT [facility] ABSOLUTE NEUTROPHILS 4.8 1.7 - 7.0 thou/cu mm 12/19/2023 3:40 PM CDT [facility] ABSOLUTE LYMPHOCYTES 1.4 0.9 - 2.9 thou/cu mm 12/19/2023 3:40 PM CDT [facility] ABSOLUTE MONOCYTES 0.7 <0.9 thou/cu mm 12/19/2023 3:40 PM CDT [facility] ABSOLUTE EOSINOPHILS 0.3 <0.5 thou/cu mm 12/19/2023 3:40 PM CDT [facility] ABSOLUTE BASOPHILS 0.0 <0.3 thou/cu mm 12/19/2023 3:40 PM CDT [facility] Blood BLOOD SPECIMEN / Unknown Venipuncture / Unknown 12/19/2023 3:35 PM CDT 12/19/2023 3:36 PM CDT John Merchant MD HEMATOLOGY Performing Organization Address City/[facility]/ZIP Co de Phone Number [facility] [address] [place] [address], [place] [phone] * TSH WITH REFLEX (12/19/2023 3:35 PM CDT) TSH 3.01 0.27 - 4.20 uIU/mL 12/19/2023 11:52 PM CDT [facility] Blood BLOOD SPECIMEN / Unknown Venipuncture / Unknown 12/19/2023 3:35 PM CDT 12/19/2023 3:36 PM CDT Narrative [facility] - 12/19/2023 11:52 PM CDT In Adults, TSH values between 5.00 and 10.00 uIU/ml do not necessarily indicate the presence of Hypothyroidism. Correlation with clinical findings such as presence of goiter and/or Thyroperoxidase (TPO) Antibody may be helpful. For more information please refer to MARTI 2004; 291: 228-238. John Merchant MD CHEMISTRY [facility] [address] [place] [address], [place] * (ABNORMAL) BASIC METABOLIC PANEL (12/19/2023 3:35 PM CDT) Only the most recent of23 resultswithin the time period is included. SODIUM 135(L) 136 - 145 mmol/L 12/19/2023 11:52 PM CDT [facility] POTASSIUM 4.5 3.5 - 5.1 mmol/L 12/19/2023 11:52 PM CDT [facility] CHLORIDE 103 98 - 107 mmol/L 12/19/2023 11:52 PM T [facility] CO2,TOTAL 22 22 - 29 mmol/L 12/19/2023 11:52 PM CDT [facility] ANION GAP 10 5 - 18 12/19/2023 11:52 PM T [facility] GLUCOSE 96 70 - 99 mg/dL 12/19/2023 11:52 PM T [facility] CALCIUM 9.4 8.8 - 10.2 mg/dL 12/19/2023 11:52 PM T [facility] BUN 29(H) 8 - 23 mg/dL 12/19/2023 11:52 PM T [facility] CREATININE 1.71(H) 0.70 - 1.20 mg/dL 12/19/2023 11:52 PM T [facility] BUN/CREAT RATIO 17 10 - 20 11:52 PM T [facility] eGFR 40(L) >90 mL/min/1.7 3m2 12/19/2023 11:52 PM T [facility] Comment:As of 2021, eG FR is calculated by the CKD-EPI creatinine equation without race adjustment. ??eGFR can be influenced by muscle mass, exercise, and diet. ??The reported eGFR is an estimation only and is only applicable if the renal function is stable. Blood BLOOD SPECIMEN / Unknown Venipuncture / Unknown 12/19/2023 3:35 PM CDT 12/19/2023 3:36 PM CDT John Merchant MD CHEMISTRY [facility] [address] [address], [place] * (ABNORMAL) HEMOGLOBIN (11/18/2023 3:02 PM CDT) Only the most recent of10 resultswithin the time period is included. HEMOGLOBIN 10.5(L) 13.5 - 17.5 g/dL 11/18/2023 3:18 PM CDT [facility] MCV 97 80 - 100 fL 11/18/2023 3:18 PM CDT [facility] Blood BLOOD SPECIMEN / Unknown Venipuncture / Unknown 11/18/2023 3:02 PM CDT 11/18/2023 3:04 PM CDT John Merchant MD HEMATOLOGY Performing Organization Address [facility] de Phone Number [facility] [address] [place] [address], * VITAMIN B12 (11/18/2023 3:02 PM CDT) VITAMIN B12 799 232 - 1,245 pg/mL 11/19/2023 2:43 AM CDT [facility] Blood BLOOD SPECIMEN / Unknown Venipuncture / Unknown 11/18/2023 3:02 PM CDT 11/18/2023 3:04 PM CDT Narrative [facility] - 11/19/2023 2:43 AM CDT Biotin supplements may cause clinically significant interference for this test assay. ??If interference is suspected, it is strongly recommended that biotin is discontinued for at least one week prior to retesting. John Merchant MD CHEMISTRY Performing Organization Address [facility] Co de Phone Number [facility] [address] [address], [place] * XR CHEST 2 VIEWS PA AND LATERAL (11/14/2023 1:29 PM CDT) Anatomical Region Laterality Modality CHEST, THORAX, Lung, HEART Digit al Radiography Narrative 11/14/2023 4:45 PM CDT Indication: Sore throat. ??Respiratory insufficiency. ??History of pneumothorax. ??Assess for infiltrate. Comparison: 05 November 2023. Impression: Persistent but improved patchy airspace opacity retrocardiac left lower lobe. ??Small bilateral pleural effusions similar to before. ?? Right lung clear. ??Pulmonary vascularity is normal. ??Cardiac pacing wires and body unchanged. ??Left atrial appendage clip. ??Aortic valve prosthesis. Removal of right jugular catheter and right PICC line. [facility] * STREP A PCR (11/14/2023 12:49 PM CDT) GROUP A STREP Negative 11/14/2023 2:34 PM CDT [facility] Throat SPECIMEN FROM THROAT / Unknown Non-Blood / Unknown 11/14/2023 12:49 PM CDT 11/14/2023 1:57 PM CDT Sivan Palacio MD MICROBIOLOGY Performing Organization Address City/[facility]/ZIP Co de Phone Number [facility] [address] [place] [address], * THROAT RAPID STREP A WITH REFLEX (11/14/2023 12:49 PM CDT) Pathologist [facility] STREP A ANTIGEN Negative 11/14/2023 1:58 PM CDT [facility] Comment:PCR to follow. Throat SPECIMEN FROM THROAT / Unknown Non-Blood / Unknown 11/14/2023 12:49 PM CDT 11/14/2023 12:59 PM CDT Sivan Palacio MD MICROBIOLOGY Performing Organization Address City/[facility]/ZIP Co de Phone Number [facility] [address] [place] [address], * SCAN-CARDIAC STRIP (11/14/2023 7:57 AM CDT) Scanner OTHER * (ABNORMAL) CBC W PLT NO DIFF (11/14/2023 6:19 AM CDT) Only the most recent of12 resultswithin the time period is included. WHITE BLOOD COUNT 7.7 4.5 - 11.0 thou/cu mm 11/14/2023 6:44 AM CDT [facility] RED BLOOD COUNT 2.87(L) 4.30 - 5.90 mil/cu mm 11/14/2023 6:44 AM CDT [facility] HEMOGLOBIN 8.9(L) 13.5 - 17.5 g/dL 11/14/2023 6:44 AM T [facility] HEMATOCRIT 27.1(L) 37.0 - 53.0 % 11/14/2023 6:44 AM CDT [facility] MCV 94 80 - 100 fL 11/14/2023 6:44 AM T [facility] MCH 31.0 26.0 - 34.0 pg 11/14/2023 6:44 AM CDT [facility] MCHC 32.8 32.0 - 36.0 g/dL 11/14/2023 6:44 AM T [facility] RDW 16.7(H) 11.5 - 15.5 % 11/14/2023 6:44 AM T [facility] PLATELET COUNT 312 140 - 440 thou/cu mm 11/14/2023 6:44 AM T [facility] MPV 10.2 6.5 - 11.0 fL 11/14/2023 6:44 AM T [facility] NRBC 0.0 % 11/14/2023 6:44 AM T [facility] ABS NRBC 0.0 thou /cu mm 11/14/2023 6:[address] [facility] Blood BLOOD SPECIMEN / Unknown Non-Lab Venipuncture / Unknown 11/14/2023 6:19 AM CDT 11/14/2023 6:33 AM CDT [facility] HEMATOLOGY Performing Organization Address City/[facility]/ZIP Co de Phone Number [facility] [address] [place] [address], * SCAN-CARDIAC STRIP (11/13/2023 3:08 PM CDT) Scanner OTHER * SCAN-CARDIAC STRIP (11/13/2023 1:08 PM CDT) Scanner OTHER * LACTATE VENOUS (11/13/2023 12:44 PM CDT) Only the most recent of42 resultswithin the time period is included. LACTATE,VENOUS 1.8 0.5 - 2.0 mmol/L 11/13/2023 2:29 PM CDT [facility] Blood BLOOD SPECIMEN / Unknown Non-Lab Venipuncture / Unknown 11/13/2023 12:44 PM CDT 11/13/2023 1:03 PM CDT Edgar GONZALEZ CHEMISTRY Performing Organization Address [facility] Co de Phone Number [facility] [address] * (ABNORMAL) O2 SATURATION,MEASURED (11/13/2023 12:44 PM CDT) Only the most recent of66 resultswithin the time period is included. O2 SATURATION,BELIA SURED 55 % 11/13/2023 1:07 PM CDT [facility] HEMOGLOBIN,BLO OD GAS 9.3(L) 13.5 - 17.5 g/dL 11/13/2023 1:07 PM CDT [facility] SOURCE, O2M Venous 11/13/2023 1:07 PM CDT [facility] Blood BLOOD SPECIMEN / Unknown Non-Lab Venipuncture / Unknown 11/13/2023 12:44 PM CDT 11/13/2023 1:03 PM CDT Narrative [facility] - 11/13/2023 1:07 PM CDT Reference Range for: ??Arterial Source ?(94-98) ?Non-Arterial Source ??(70-75) Edgar GONZALEZ CHEMISTRY Performing Organization Address [facility] Co de Phone Number [facility] [address] [place] [address], [place] * PHOSPHORUS (11/13/2023 5:52 AM CDT) Only the most recent of3 resultswithin the time period is included. PHOSPHORUS 3.3 2.5 - 4.5 mg/dL 11/13/2023 6:38 AM CDT [facility] Blood BLOOD SPECIMEN / Unknown Non-Lab Venipuncture / Unknown 11/13/2023 5:52 AM CDT 11/13/2023 6:00 AM CDT Constantino Duarte MD CHEMISTRY Performing Organization Address [facility] de Phone Number [facility] [address] [place] [address], [place] * MAGNESIUM (11/13/2023 5:52 AM CDT) Only the most recent of16 resultswithin the time period is included. MAGNESIUM 2.3 1.6 - 2.4 mg/dL 11/13/2023 6:38 AM CDT [facility] Blood BLOOD SPECIMEN / Unknown Non-Lab Venipuncture / Unknown 11/13/2023 5:52 AM CDT 11/13/2023 6:00 AM CDT Salinas Edmonds MD CH EMISTRY Performing Organization Address [facility] Co de Phone Number [facility] [address] [phone], [place] * SCAN-CARDIAC STRIP (11/12/2023 9:27 PM CDT) Scanner OTHER * EKG 12 LEAD (11/12/2023 7:51 AM CDT) Only the most recent of9 resultswithin the time period is included. Interpretation AV dual-paced rhythm Abnormal ECG When compared with ECG of 12-NOV-2023 07:50, Vent. rate has decreased BY ?? 3 BPM [facility] NOW Ventricular Rate 87 BPM [facility] NOW Atrial Rate 87 BPM [facility]OND NOW P-R Interval 178 ms [facility] NOW QRS Duration 192 ms [facility] NOW QT 482 ms [facility] NOW QTc 580 ms BEYOND NOW P [place] -22 degrees BEYOND NOW R [place] 89 degrees BEYOND NOW T [place] -97 degrees [facility] NOW 11/12/2023 7:51 AM CDT 11/12/2023 5:15 PM CDT Narrative [facility] - 11/12/2023 5:16 PM CDT Test Indication: stat Jarred Ruiz MD EKG ORD Performing Organization Address City/[facility]/ZIP Co de Phone Number [facility] NOW [place], [place] * SCAN-CARDIAC STRIP (11/12/2023 7:47 AM CDT) Scanner OTHER * ALT (SGPT) (11/12/2023 6:08 AM CDT) Only the most recent of4 resultswithin the time period is included. Pathologist [facility] ALT (SGPT) 46 10 - 50 IU/L 11/12/2023 7:01 AM CDT [facility] Blood BLOOD SPECIMEN / Unknown Non-Lab Venipuncture / Unknown 11/12/2023 6:08 AM CDT 11/12/2023 6:32 AM CDT Edgar GONZALEZ CHEMISTRY [facility] [address] [place] [address], * SCAN-CARDIAC STRIP (11/12/2023 1:39 AM CDT) Scanner OTHER * SCAN-CARDIAC STRIP (11/11/2023 5:15 PM CDT) Scanner OTHER * PACER MANNY DUAL CHAMBER W REPROG (11/11/2023 2:29 PM CDT) Narrative Isaiah Breaux MD - 11/11/2023 2:29 PM CDT Isaiah Breaux MD ? 11/12/2023 10:33 AM PACEMAKER EVALUATION REPORT 11/11/2023 Indication for Pacemaker: Intermittent complete heart block; frequent PVCs Primary MD: John Merchant MD Primary EP: Chica Ayers MD Primary White Work Cleaner: Dr Boyer Implanting MD: Chica Ayers MD DEVICE DATA Cell Attendant Helper Medtronic: Model [place] XT DR ZAMBRANO SureScan Implant Date 10/27/2020 LEAD DATA Atrial Lead: Cell Attendant Helper Medtronic: Model 5076 - 52 cm Implant Date 10/27/2020 RV Lead: Cell Attendant Helper Medtronic: Model 3830 - 69 cm Implant Date 10/27/2020 Advisory: None. Location of evaluation: [facility] [id number] Reason for evaluation: Program LRL 80 per MD MEASUREMENTS Atrial Sensing - P wave: 1.4 mV Atrial Capture: 0.75 V @ 0.4 ms Atrial Lead Impedance: 418 ohms Ventricular Sensing - R wave: no R wave at VVI 40 bpm Ventricular Capture: 2.25 V @ 0.4 ms (tested x 2) Ventricular Lead Impedance: 608 ohms Presenting/Underlying Rhythm: Atrial flutter with CHB, no escape at VVI 40 bpm. DIAGNOSTIC DATA- since 11/06/2023 Atrial paced: 64%, Ventricular paced: 100 % Atrial episodes: 470 detected for overall 98.3% burden. On warfarin. Pt denies awareness. Ventricular episodes (detects >150 bpm x 4 beats): ??None ?Associated symptoms: n/a Last EF: 45-50% per Echocardiogram on 10/28/2023 Histogram: Currently blunted ??- In hospital. Magnet rate: 85 bpm ??Battery voltage: 2.99 V ??Estimated battery longevity: 8.2 years FINAL PARAMETERS Mode: DDDR ??Lower rate: 80 bpm ??Upper rate: 130/130 bpm ??AV Delay: 180/150 ms ??Mode Switch: 171 bpm ??Rate Response: ML 3/3 Atrial - Amplitude: Adaptive 1.5 V ??Pulse width: 0.4 ms ?? Sensitivity: 0.3 mV ??Refractory: Auto, 250 ms ??Polarity: Bipolar Right Ventricular - Amplitude: Adaptive 3 V ??Pulse width: 0.4 ms ?? Sensitivity: 0.9 mV ??Polarity: Bipolar Changes made: Programmed LRL to 80 bpm from 100 bpm per MD. Turned on rate response to ML 3/3 (as per previous setting). Increased RV output to 3V from 2.5 V to allow safety margin. Conclusion: Normal pacemaker function with increased RV threshold- will continue to monitor. Overall 98.3% burden. On warfarin. Pt denies awareness. Battery 8.2 yrs remaining. Follow up: 02/05/2024 [facility] as previously scheduled. Routine follow up: Every 3 - 4 months via [employer] with annual [place] each October. Alfa Redd, RN Nurse Clinician II [facility] Pacemaker/ICD Clinic [phone] Isaiah rBeaux MD Cardiac Arrhythmia Section [facility] Isaiah Breaux MD CARDIAC SERVIC ES ORD * POTASSIUM (11/11/2023 2:13 PM CDT) Only the most recent of22 resultswithin the time period is included. POTASSIUM 4.1 3.5 - 5.1 mmol/L 11/11/2023 4:38 PM CDT [facility] Blood BLOOD SPECIMEN / Unknown Non-Lab Venipuncture / Unknown 11/11/2023 2:13 PM CDT 11/11/2023 2:30 PM CDT Sivan Palacio MD CHEMISTRY [facility] [address] [place] [address], * SCAN-CARDIAC STRIP (11/11/2023 9:46 AM CDT) Scanner OTHER * SCAN-CARDIAC STRIP (11/11/2023 6:08 AM CDT) Scanner OTHER * SCAN-CARDIAC STRIP (11/11/2023 2:19 AM CDT) Scanner OTHER * (ABNORMAL) CREATININE (11/10/2023 3:17 PM CDT) Only the most recent of2 resultswithin the time period is included. eGFR 43(L) >90 mL/min/1.7 3m2 11/10/2023 4:01 PM CDT [facility] Comment:As of 2021, eG FR is calculated by the CKD-EPI creatinine equation without race adjustment. ??eGFR can be influenced by muscle mass, exercise, and diet. ??The reported eGFR is an estimation only and is only applicable if the renal function is stable. CREATININE 1.62(H) 0.70 - 1.20 mg/dL 11/10/2023 4:01 PM CDT [facility] Blood BLOOD SPECIMEN / Unknown Non-Lab Venipuncture / Unknown 11/10/2023 3:17 PM CDT 11/10/2023 3:24 PM CDT Edgar GONZALEZ CHEMISTRY [facility] [address] [place] [address], * SCAN-CARDIAC STRIP (11/10/2023 10:19 AM CDT) Scanner OTHER * FERRITIN (11/10/2023 5:53 AM CDT) FERRITIN 265.0 30.0 - 400.0 ng/mL 11/10/2023 12:02 PM CDT [facility] Blood BLOOD SPECIMEN / Unknown Non-Lab Venipuncture / Unknown 11/10/2023 5:53 AM CDT 11/10/2023 6:14 AM CDT Edgar GONZALEZ CHEMISTRY [facility] [address] [place] [address], * SCAN-CARDIAC STRIP (11/09/2023 7:26 PM CDT) Scanner OTHER * (ABNORMAL) GLUCOSE METER (11/09/2023 4:42 PM CDT) Only the most recent of61 resultswithin the time period is included. GLUCOSE METER 149(H) 65 - 100 mg/dL 11/09/2023 4:42 PM CDT [facility] Blood BLOOD SPECIMEN / Unknown 11/09/2023 4:42 PM CDT 11/09/2023 4:42 PM CDT Salinas Edmonds MD EMISTRY Performing Organization Address [facility] de Phone Number [facility] [address] [place] [address], * SCAN-CARDIAC STRIP (11/09/2023 7:34 AM CDT) Scanner OTHER * SCAN-CARDIAC STRIP (11/09/2023 1:11 AM CDT) Scanner OTHER * SCAN-CARDIAC STRIP (11/08/2023 9:38 AM CDT) Scanner OTHER * TRANSFUSE RBC (NURSE COMMUNICATION ORDER) (11/07/2023 4:32 PM CDT) Blood BLOOD SPECIMEN / Unknown Kait Duran NP NURSING BLOOD BANK * SCAN-CARDIAC STRIP (11/07/2023 4:18 PM CDT) Scanner OTHER * ECHO TTE LIMITED WO CONTRAST W COLOR W LTD DOPPLER (11/07/2023 3:45 PM CDT) Only the most recent of3 resultswithin the time period is included. AORTIC VALVE MEAN PG 5 mmHg PEAK TR VELOCITY 2.3 m/s LVEDD 4.4 cm EJECTION FRACTION 40 - 45% Anatomical Region Laterality Modality Ultrasound 11/07/2023 2:44 PM CDT Narrative 11/07/2023 5:50 PM CDT ECHOCARDIOGRAM SHANAE MUNGUIA ? Accession#: ?? [id number] : ?1945 78 years Study Date: ?? 11/07/2023 2:44:34 PM Gender: M ?BP: ? 98/71 mmHg Height: 177.00 cm ?BSA: ?1.81 m? ? ? Weight: 65.00 kg ? Tech: ? JMO ? Referring MD: KAIT DURAN Site: ? [facility] Reading Location: [facility] Patient Location: Inpatient. Procedure: Limited 2D , Color Doppler and Limited Spectral Doppler. Indication for study: S/P AVR Cardiac Rhythm: Regular.Study quality: Good. Final Impressions: Limited Echocardiogram performed 1. Normal LV size, mildly reduced global systolic function with an estimated EF of ~ 40 %. 2. Noormal RV size with moderate-severely reduced function. FAC 20%. 3. Severely enlarged right atrium. 4. The aortic valve is a normal functioning 27 mm Inspiris bioprosthesis AVR, no stenosis and no regurgitation. EOA 1.9cm2, MG 9mmHg. 5. Moderate tricuspid regurgitation. 6. The mitral valve is normal, mild mitral regurgitation. 7. The inferior vena cava is consistent with elevated right atrial pressure. 8. Left plerural effusion with associated atelectatic lung tip visualized. 9. No pericardial effusion but the pericardium is diffusely thickened ~0.8cm. There is > 25% respiratory flow variation across the AV valves w/ dilated IVC, unable to further assess for constriction. Comparison Compared to the prior study dated 11/01/23, the peak and mean gradients across the aortic valve have decreased. The valve area and dimensionless index are lower. Chamber Sizes and Function Normal left ventricular size, mildly increased wall thickness, mildly reduced global systolic function with an estimated EF of 40 - 45%. Left atrial size is mildly enlarged. Right ventricular cavity size is normal, global systolic RV function is moderately reduced. RV wall thickness is normal. Pacing wire/catheter visualized in the right atrium. and Pacing wire/catheter visualized in the right ventricle. The right atrium is severely enlarged. The pulmonary artery is not well visualized. Valves, RV Pressures and Diastolic Function The aortic valve is a normal functioning 27 mm Inspiris bioprosthesis replacement, no stenosis and no regurgitation. There is no paravalvular reguritation. The mitral valve is normal in structure, mild mitral regurgitation. The tricuspid valve is normal in structure. Tricuspid regurgitation is moderate. The tricuspid regurgitant velocity is 2.3 m/s, the estimated right ventricular systolic pressure is 21 mmHg plus right atrial pressure. There is normal estimated pulmonary pressure by tricuspid regurgitation velocity and right atrial pressure. The pulmonic valve is normal. No pulmonic regurgitation is present on color flow. Masses, Effusion, Shunts There is no pericardial effusion. The inferior vena cava is dilated, respiratory size variation less than 50%, consistent with elevated right atrial pressure. MEASUREMENTS AND CALCULATIONS 2-D Measurements and LV Function: LVID (d) 4.4 cm LVOT diameter 2.1 cm IVS (d) ??1.2 cm HR ?100 bpm Aortic Valve: Vmax ? 1.5 m/s ??SOHAN (V) ?? 1.92 cm? ? ? VTI ?0.20 m ?? SOHAN (I) ?? 1.96 cm? ? ? LVOT V max 0.8 m/s ??Max PG ?9 mmHg LVOT VTI ?? 0.12 m ?? Mean PG ?? 5 mmHg SV ? 40 ml ?Dim Index 0.57 SV index ?? 22 ml/m? ? ? CO ?4.0 l/min ?CI ?2.2 l/min/m? ? ? Tricuspid Valve and estimated PA pressures: TR Vmax 2.3 m/s TR maxG 21 mmHg . This study was interpreted by an [facility] accredited facility. ??Final ?? Procedure Note Mookie Jacob MD - 11/07/2023 ECHOCARDIOGRAM SHANAE MUNGUIA : 1945 78 years Study Date: 11/07/2023 2:44:34 PM Gender: M BP: 98/71 mmHg Height: 177.00 cm BSA: 1.81 m? ? ? Weight: 65.00 kg Tech: [place] Referring MD: KAIT DURAN Site: [facility] Reading Location: [facility] Patient Location: Inpatient. Procedure: Limited 2D , Color Doppler and Limited Spectral Doppler. Indication for study: S/P AVR Cardiac Rhythm: Regular.Study quality: Good. Final Impressions: Limited Echocardiogram performed 1. Normal LV size, mildly reduced global systolic function with anestimated EF of ~ 40 %. 2. Noormal RV size with moderate-severely reduced function. FAC 20%. 3. Severely enlarged right atrium. 4. The aortic valve is a normal functioning 27 mm Inspiris bioprosthesisAVR, no stenosis and no regurgitation. EOA 1.9cm2, MG 9mmHg. 5. Moderate tricuspid regurgitation. 6. The mitral valve is normal, mild mitral regurgitation. 7. The inferior vena cava is consistent with elevated right atrialpressure. 8. Left plerural effusion with associated atelectatic lung tipvisualized. 9. No pericardial effusion but the pericardium is diffusely thickened~0.8cm. There is > 25% respiratory flow variation across the AV valves w/dilated IVC, unable to further assess for constriction. Comparison Compared to the prior study dated 11/01/23, the peak and mean gradientsacross the aortic valve have decreased. The valve area and dimensionlessindex are lower. Chamber Sizes and Function Normal left ventricular size, mildly increased wall thickness, mildlyreduced global systolic function with an estimated EF of 40 - 45%. Leftatrial size is mildly enlarged. Right ventricular cavity size is normal,global systolic RV function is moderately reduced. RV wall thickness isnormal. Pacing wire/catheter visualized in the right atrium. and Pacingwire/catheter visualized in the right ventricle. The right atrium isseverely enlarged. The pulmonary artery is not well visualized. Valves, RV Pressures and Diastolic Function The aortic valve is a normal functioning 27 mm Inspiris bioprosthesisreplacement, no stenosis and no regurgitation. There is no paravalvularreguritation. The mitral valve is normal in structure, mild mitralregurgitation. The tricuspid valve is normal in structure. Tricuspidregurgitation is moderate. The tricuspid regurgitant velocity is 2.3 m/s,the estimated right ventricular systolic pressure is 21 mmHg plus rightatrial pressure. There is normal estimated pulmonary pressure by tricuspidregurgitation velocity and right atrial pressure. The pulmonic valve isnormal. No pulmonic regurgitation is present on color flow. Masses, Effusion, Shunts There is no pericardial effusion. The inferior vena cava is dilated,respiratory size variation less than 50%, consistent with elevated rightatrial pressure. MEASUREMENTS AND CALCULATIONS 2-D Measurements and LV Function: LVID (d) 4.4 cm LVOT diameter 2.1 cm IVS (d) 1.2 cm HR 100 bpm Aortic Valve: Vmax 1.5 m/s SOHAN (V) 1.92 cm? ? ? VTI 0.20 m SOHAN (I) 1.96 cm? ? ? LVOT V max 0.8 m/s Max PG 9 mmHg LVOT VTI 0.12 m Mean PG 5 mmHg SV 40 ml Dim Index 0.57 SV index 22 ml/m? ? ? CO 4.0 l/min CI 2.2 l/min/m? ? ? Tricuspid Valve and estimated PA pressures: TR Vmax 2.3 m/s TR maxG 21 mmHg . This study was interpreted by an [facility] accredited facility. Final Kait Duran NP ECHO ORD * RBC W TYPE AND SCREEN, 1 unit (11/07/2023 12:10 PM CDT) ABORH A Rh Positive 11/07/2023 12:57 PM CDT [facility] ANTIBODY SCREEN Negative Negative 11/07/2023 12:57 PM CDT [facility] SPECIMEN EXPIRATION DATE/TIME 11/10/23 23:59 11/07/2023 12:57 PM CDT [facility] Blood BLOOD SPECIMEN / Unknown Non-Lab Venipuncture / Unknown 11/07/2023 12:10 PM CDT 11/07/2023 12:19 PM CDT Kait Duran WILLIAM BLOOD BANK [facility] [address] [place] [id number], * RED BLOOD CELLS EA UNIT (11/07/2023 12:08 PM CDT) Only the most recent of5 resultswithin the time period is included. [facility] CROSSMATCH Compatible Compatible [facility] PRODUCT BLOOD TYPE A Rh Positive [facility] PRODUCT ID NUMBER [id number] [facility] PRODUCT STATUS Transfused [facility] [employer] PRODUCT DESCRIPTION RBC -1 LR [facility] PRODUCT CODE [id number] [facility] ISSUE DATE/TIME 11/07/23 15:55 [facility] Kait Duran [facility] [address] [place] [address], [place] [phone] * (ABNORMAL) CALCIUM IONIZED HOSPITAL DRAW ONLY (11/07/2023 11:38 AM CDT) Only the most recent of6 resultswithin the time period is included. [facility] CALCIUM,IONIZE D 1.14(L) 1.15 - 1.27 mmol/L 11/07/2023 12:03 PM CDT [facility] Blood BLOOD SPECIMEN / Unknown Non-Lab Venipuncture / Unknown 11/07/2023 11:38 AM CDT 11/07/2023 11:57 AM CDT Kait Merchant Renee THOMAS CHEMISTRY [facility] [address] [place] [id number], * PACER MANNY DUAL CHAMBER WO REPROG (11/06/2023 3:32 PM CDT) Narrative Isaiah Breaux MD - 11/06/2023 3:32 PM CDT Edwina Olivo RN ? 11/06/2023 ??3:55 PM PACEMAKER EVALUATION REPORT 11/06/23 Indication for Pacemaker: Intermittent complete heart block; frequent PVCs Primary MD: John Merchant MD Primary EP: Chica Ayers MD Primary White Work Cleaner: Dr Boyer Implanting MD: Chica Ayers MD DEVICE DATA Cell Attendant Helper Medtronic: Model [place] XT DR ZAMBRANO SureIsaiah Implant Date 10/27/2020 LEAD DATA Atrial Lead: Cell Attendant Helper Medtronic: Model 5076 - 52 cm Implant Date 10/27/2020 RV Lead: Cell Attendant Helper Medtronic: Model 3830 - 69 cm Implant Date 10/27/2020 Advisory: None. Location of evaluation: [facility] [id number] Reason for evaluation: request-assess rhythm and attempt to burst pace/convert WILLIAM Velasco at bedside. MEASUREMENTS Atrial Sensing - P wave: 1.8 mV Atrial Capture: SHANIKA Atrial Lead Impedance: 323 ohms Ventricular Sensing - R wave: SHANIKA at VVI 45 Ventricular Capture: Not assessed Ventricular Lead Impedance: 437 ohms Presenting/Underlying Rhythm: Atrial flutter with HB, no escape at VVI 45. Atrial rate 230 ms / 261 bpm. No conversion post burst pacing at 200 ms down to 50 hertz. DIAGNOSTIC DATA- since Atrial paced: 64.7%, Ventricular paced: 100 % Atrial episodes:5 Detections for 36.7% since yesterday. 10 hours since DCCV and burst pace on 11/04. Ventricular episodes (detects >150 bpm x 4 beats): ??None ?Associated symptoms: n/a Last EF: 45-50% per Echocardiogram on 10/28/2023 Histogram: Currently blunted ??- In hospital. Magnet rate: 85 bpm ??Battery voltage: 2.98 V ??Estimated battery longevity: 7.4 years FINAL PARAMETERS Mode: DDD ??Lower rate: 100 bpm ??Upper rate: 130/130 bpm ??AV Delay: 180/150 ms ??Mode Switch: 171 bpm ??Rate Response: Mode switch only (Low, 3/3) Atrial - Amplitude: Adaptive 1.5 V ??Pulse width: 0.4 ms ?? Sensitivity: 0.3 mV ??Refractory: Auto, 250 ms ??Polarity: Bipolar Right Ventricular - Amplitude: Adaptive 2.5 V ??Pulse width: 0.4 ms ??Sensitivity: 0.9 mV ??Polarity: Bipolar Changes made: Device temporarily reprogrammed, iterative adjustments made during interrogation/testing. No permanent changes made. Conclusion: Normal pacemaker function with unsuccessful conversion of atrial flutter to NSR post burst pacing as detailed above Follow up: As previously mentioned, we will see in hospital when appropriate to decrease LRL and re-enable rate response. Please call [phone] when ready to be reprogrammed. Routine follow up: Every 3 - 4 months via [employer] with annual [place] each October. Edwina Olivo, RN, CCDS Nurse Clinician II Pacemaker/ICD Clinic [facility] Isaiah Breaux MD CARDIAC SERVIC ES ORD * (ABNORMAL) AST AM (11/06/2023 2:25 AM CDT) AST (SGOT) 122(H) 10 - 50 IU/L 11/06/2023 3:01 AM CDT [facility] [employer] LABORATORY[facility] Blood BLOOD SPECIMEN / Unknown Line/Port / Unknown 11/06/2023 2:25 AM CDT 11/06/2023 2:35 AM CDT David Chavez MD CHEMISTRY [facility] [address] [place] [address], * INSERT PICC LINE (11/05/2023 5:55 PM CDT) Narrative Brooke Richard RN - 11/05/2023 5:55 PM CDT Brooke Richard RN ? 11/05/2023 ??5:57 PM PICC Line Insertion Note 11/05/2023 ?? 5:55 PM Procedure education reviewed: Placement procedure, discussed with: Patient face to face. Patient face to face confirms understanding of procedure. Part Time Receptionist used: No Reason for insertion: ??IV medications, MD order, and Vasoactive Medications Medical/ Surgical/ Allergies History reviewed: ??Yes. Preprocedure Verification: ??Yes 1) Provider Order verified 2) Patient identity verified; 3) side/site/procedure confirmed; 4) relevant information/documentation available, reviewed and properly matched to the patient; 5) For PICC insertions, consent accurate and complete or verified provider has ordered emergent placement; 6) equipment and supplies available Site Marking: ??Yes Site marked if not in continuous attendance with the patient Time Out: ??Yes Time out was conducted just prior to starting procedure to verify the four required elements: 1) patient name and date of 2) confirmation that the correct side/site are marked if applicable, including visualization of the site adis 3) name of procedure including laterality if applicable, and 4) essential imaging and results are properly labeled and appropriately displayed, if applicable. Site assessment pre-insertion: ??Intact. Local anesthetic used at site: ??Yes, 1% Lidocaine. The following Central Line Insertion Checklist was used: Hand Hygiene: Yes Maximal Barrier Precautions including Sterile Gown, Hat and Mask: Yes Full Body Drape: Yes Site cleansed with: ??Chlorhexidine gluconate prep. PICC Line 2 Lumen Right;Basilic Pending X-ray (Active) 11/05/23 1754 Right;Basilic (IA) Lumen One Designation: ?? (IA) Lumen Two Designation: ?? Lumen One Designation: Red Lumen Two Designation: Purple Vessel Diameter (cm): .44 Exgjaqil-ag-Eitd Ratio (%): ?? Visible Catheter Length (cm): 2 cm Placed/Present Prior to Encounter: ?? (IA) Placed Prior to Admission?: ?? Type: Valved Catheter (IA) Size: ?? Tip Location: Pending X-ray PICC Mid-Arm Circumference (cm): 24 cm Total Length of Catheter (cm): 46 cm Insertion Attempts: 1 (IA) Insertion Attempts: ?? Local Anesthetic: Injectable Placement Verification: CXR;Blood Return;Ultrasound Removed Catheter Length (cm): ?? Removed/Resolved Prior to Encounter: ?? Visible Catheter Length (cm) 2 cm 11/05/231753 Arm Circumference (cm) 24 cm 11/05/231753 Status Lumen One Blood Return;Capped/Locked 11/05/231753 Status Lumen Two Blood Return;Capped/Locked 11/05/231753 Line Assessment Antimicrobial patch and dressing clean/dry/intact 11/05/231753 Site Description Dry/Flat;Covered 11/05/231753 Line Intervention New dressing applied and NO hemostatic agent/gauze 11/05/231753 Dressing change due date 11/12/2023 11/05/231753 Line Cell Attendant Helper Name: [employer] Line Type: Valved Power PICC Lot Number: [id number] Access Assistance:Modified Seldinger Technique (Micro-Introducer) WITHOUT ??Dermatotomy (skin jj), Ultrasound Guidance, and Tip confirmation system/ECG Post-insertion: ? Able to remove guidewire: ??Smoothly. ? Able to aspirate blood in each lumen: Yes ? Able to flush catheter without resistance in each lumen: ?? Yes Each lumen flushed with: ??20 ml(s) of 0.9% saline, and ??no Heparin. Cap applied to each lumen: ??Yes Line secured with: Stat-Lock ? Hospital dressing policy/procedure followed. PICC Line standing orders implemented: ??Yes X- ray pending: Yes ? Insertion complications: None Patient tolerated the procedure: ??Yes PICC education reviewed: Given to patient ? Christiane GONZALEZ IV ORD * XR CHEST 1 VIEW PORTABLE (11/05/2023 5:52 PM CDT) Only the most recent of10 resultswithin the time period is included. Anatomical Region Laterality Modality HEART, THORAX, CHEST Digital Rad iography 11/05/2023 6:54 PM CDT Addenda Addendum by Roderick Holland MD on 11/05/2023 6:54 PM CDT For Patients: ??As a result of the Cures Act, medical imaging exams and procedure reports are released immediately into your electronic medical record. ??You may view this report before your referring provider. ?? If you have questions, please contact your health care provider. INDICATION: Line placement. TECHNIQUE: Chest 1 views. COMPARISON: Same day. FINDINGS: Right-sided PICC with tip overlying the expected location of low SVC. Otherwise stable life-support devices. Lungs: Normal lung volume. Left basilar passive atelectasis. The tracheobronchial tree and hilar structures are unremarkable. Pleura: Small left and right pleural effusion. Heart and Mediastinum: Postoperative changes of open heart surgery. Stable cardiomegaly. Atherosclerotic aorta. Bones: Sternotomy wires. IMPRESSION: Right-sided PICC with tip overlying the expected location of low SVC. Otherwise stable life-support devices. Dictated by Roderick Holland MD @ Nov 05 2023 ??6:54PM (Electronically Signed) [email or web address] Impressions 11/05/2023 6:54 PM CDT Dense atelectasis in the left lower lobe. ??Lines and tubes are in stable position. No pneumothorax. ??Right PICC line placement from the upper extremity with tip in satisfactory position at superior vena cava. Narrative 11/05/2023 6:54 PM CDT INDICATION Line placement. TECHNIQUE Portable chest. ??Comparison same date. Procedure Note Song Kincaid MD / Roderick Holland MD - 11/05/2023 INDICATION Line placement. TECHNIQUE Portable chest. Comparison same date. IMPRESSION: Dense atelectasis in the left lower lobe. Lines and tubes are in stableposition. No pneumothorax. Right PICC line placement from the upper extremity withtip in satisfactory position at superior vena cava. Brooke Mane RN GENERAL IMAGING * EP CARDIOVERSION (11/05/2023 12:50 PM CDT) Anatomical Region Laterality Modality X-Ray Angiograph y Narrative 11/05/2023 12:50 PM CDT Roderick Mclean MD ? 11/05/2023 12:51 PM [facility] Cardioversion Procedure Note Date of Service: ??11/05/2023 Procedure Type: Cardioversion Preoperative Diagnosis: Atrial fibrillation and/or atrial flutter Indications, goals, risks, and alternatives of transesophageal echocardiography and cardioversion were reviewed with the patient and informed consent obtained pre-procedure. TIME OUT was performed. Sedation was administered by [facility] JEAN 11/05/2023 demonstrated no left atrial appendage thrombus. See separate JEAN report for details of findings. The patient is therapeutically anticoagulated on heparin. 2 synchronized shock(s) administered at 200 joules and 360 joules with cardioversion patches in an anterior/posterior position. The result was atrial flutter to NSR with over drive pacing. There were no apparent complications. Roderick Nazario MD [facility] 11/05/2023 12:50 PM Chica Ayers MD CV IMAGING * ECHO JEAN WO CONTRAST W COLOR W LTD DOPPLER (11/05/2023 11:24 AM CDT) [facility] Signature MITRAL VALVE MR ERO 26 mm2 EJECTION FRACTION 45 - 50% Anatomical Region Laterality Modality Ultrasound 11/05/2023 9:37 AM CDT Narrative 11/05/2023 12:58 PM CDT TRANSESOPHAGEAL ECHOCARDIOGRAM SHANAE MUNGUIA ? Accession#: ?? [id number] : ?1945 78 years Study Date: ?? 11/05/2023 9:37:19 AM Gender: M ?BP: ? 83/66 mmHg Height: 178.00 cm ?BSA: ?1.85 m? ? ? Weight: 68.00 kg ? Tech: ? CJG/MM ? Referring MD: CHRISTIANE HAYDEN Site: ? [facility] Reading Location: [facility] IP Patient Location: Inpatient. Procedure: JEAN, Color Doppler, 3D Imaging and Limited Spectral Doppler. Indication for study: DCCV Cardiac Rhythm: Ventricular paced.Study quality: Good. Final Impressions: 1. Normal left ventricular size, low normal global systolic function with an estimated EF of 45 - 50%. 2. Mildly enlarged left atrium. 3. Surgically ligated left atrial appendage. 4. Right ventricular cavity size is normal, global systolic RV function is mildly reduced. 5. The aortic valve is functioning 27 mm Inspiris bioprosthesis AVR, not evaluated for stenosis and no regurgitation. 6. The mitral valve is sclerotic, mild to moderate mitral regurgitation. 7. Ascending aorta with evidence of a small fluid collection with no intracavitary flow. Likely post op edema - discussed with Dr. Xiao. 8. Proceed with DCCV. Procedure comments: Indications, goals, risks and alternatives of the procedure were discussed with the patient and informed consent was obtained. The patient received sedation of intravenous Propofol , conscious sedation of intravenous Versed and intravenous Fentanyl. See procedural record for anesthesia details. Prior to performance of procedure, time out was called to accurately identify the patient and procedure. The Echo probe was passed without difficulty. JEAN, Color Doppler, 3D Imaging and Limited Spectral Doppler was performed. The patient developed no apparent complications during the procedure. Estimated Blood Loss: 0 ml Chamber Sizes and Function Normal left ventricular size, low normal global systolic function with an estimated EF of 45 - 50%. Left atrial size is mildly enlarged. The left atrial appendage is surgically ligated. Not well visualized left atrial appendage flow velocities. Right ventricular cavity size is normal, global systolic RV function is mildly reduced. The right atrium is mildly enlarged. The pulmonary artery is not well visualized. The sinus of Valsalva is normal sized. The ascending aorta is normal sized. Aortic arch is normal sized. Descending aorta is normal sized. Valves, RV Pressures and Diastolic Function The aortic valve is functioning 27 mm Inspiris bioprosthesis replacement, not evaluated for stenosis and no regurgitation. The mitral valve is sclerotic, mild to moderate mitral regurgitation. The tricuspid valve is normal in structure. Tricuspid regurgitation is mild regurgitation. The pulmonic valve is not well visualized. Unable to determine pulmonary regurgitation. Masses, Effusion, Shunts There is no pericardial effusion. Not well visualized intra-atrial septum. Agitated saline injection not done. MEASUREMENTS AND CALCULATIONS 2-D Measurements and LV Function: HR 100 bpm Mitral Valve: MR ERO ??0.26 cm? ? ? MR Vol. 29 ml MR TVI ??1.12 m . This study was interpreted by an [facility] accredited facility. ??Final ?? Procedure Note Roderick Mclean MD - 11/05/2023 TRANSESOPHAGEAL ECHOCARDIOGRAM SHANAE MUNGUIA : 1945 78 years Study Date: 11/05/2023 9:37:19 AM Gender: M BP: 83/66 mmHg Height: 178.00 cm BSA: 1.85 m? ? ? Weight: 68.00 kg Tech: NOY/MM Referring MD: CHRISTIANE HAYDEN Site: [facility] Reading Location: [facility] Patient Location: Inpatient. Procedure: JEAN, Color Doppler, 3D Imaging and Limited Spectral Doppler. Indication for study: DCCV Cardiac Rhythm: Ventricular paced.Study quality: Good. Final Impressions: 1. Normal left ventricular size, low normal global systolic function withan estimated EF of 45 - 50%. 2. Mildly enlarged left atrium. 3. Surgically ligated left atrial appendage. 4. Right ventricular cavity size is normal, global systolic RV functionis mildly reduced. 5. The aortic valve is functioning 27 mm Inspiris bioprosthesis AVR, notevaluated for stenosis and no regurgitation. 6. The mitral valve is sclerotic, mild to moderate mitralregurgitation. 7. Ascending aorta with evidence of a small fluid collection with nointracavitary flow. Likely post op edema - discussed with Dr. Xiao. 8. Proceed with DCCV. Procedure comments: Indications, goals, risks and alternatives of theprocedure were discussed with the patient and informed consent wasobtained. The patient received sedation of intravenous Propofol ,conscious sedation of intravenous Versed and intravenous Fentanyl. Seeprocedural record for anesthesia details. Prior to performance ofprocedure, time out was called to accurately identify the patient andprocedure. The Echo probe was passed without difficulty. JEAN, ColorDoppler, 3D Imaging and Limited Spectral Doppler was performed. Thepatient developed no apparent complications during the procedure. Estimated Blood Loss: 0 ml Chamber Sizes and Function Normal left ventricular size, low normal global systolic function with anestimated EF of 45 - 50%. Left atrial size is mildly enlarged. The leftatrial appendage is surgically ligated. Not well visualized left atrialappendage flow velocities. Right ventricular cavity size is normal, globalsystolic RV function is mildly reduced. The right atrium is mildlyenlarged. The pulmonary artery is not well visualized. The sinus ofValsalva is normal sized. The ascending aorta is normal sized. Aortic archis normal sized. Descending aorta is normal sized. Valves, RV Pressures and Diastolic Function The aortic valve is functioning 27 mm Inspiris bioprosthesis replacement,not evaluated for stenosis and no regurgitation. The mitral valve issclerotic, mild to moderate mitral regurgitation. The tricuspid valve isnormal in structure. Tricuspid regurgitation is mild regurgitation. Thepulmonic valve is not well visualized. Unable to determine pulmonaryregurgitation. Masses, Effusion, Shunts There is no pericardial effusion. Not well visualized intra-atrial septum.Agitated saline injection not done. MEASUREMENTS AND CALCULATIONS 2-D Measurements and LV Function: HR 100 bpm Mitral Valve: MR ERO 0.26 cm? ? ? MR Vol. 29 ml MR TVI 1.12 m . This study was interpreted by an [facility] accredited facility. Final Christiane GONZALEZ ECHO ORD * PACER MANNY DUAL CHAMBER WO REPROG (11/05/2023 11:15 AM CDT) Narrative Isaiah Breaux MD - 11/05/2023 11:15 AM CDT Tam Temple RN ? 11/05/2023 11:20 AM PACEMAKER EVALUATION REPORT November 05, 2023 Indication for Pacemaker: Intermittent complete heart block; frequent PVCs Primary MD: John Merchant MD Primary EP: Chica Ayers MD Primary White Work Cleaner: Dr Boyer Implanting MD: Chica Ayers MD DEVICE DATA Cell Attendant Helper [employer]: Model [place] XT DR KENYA Kwon Implant Date 10/27/2020 LEAD DATA Atrial Lead: Cell Attendant Helper Medtronic: Model 5076 - 52 cm Implant Date 10/27/2020 RV Lead: Cell Attendant Helper [employer]tronic: Model 3830 - 69 cm Implant Date 10/27/2020 Advisory: None. Location of evaluation: [place] [id number] Reason for evaluation: MD request-assess rhythm post DCCV MEASUREMENTS -from 11/01/23, deferred today Atrial Sensing - P wave: 0.3 mV Atrial Capture: Not assessed post DCCV Atrial Lead Impedance: 380 ohms Ventricular Sensing - R wave: 4.3 mV Ventricular Capture: 1.25 V @ 0.4 ms Previous post op: 1.5 V @ 0.4 ms Ventricular Lead Impedance: 456 ohms Presenting/Underlying Rhythm: Atrial flutter with BOAT BUFFER PLASTIC at 100 bpm attempted atrial over drive pacing of atrial flutter which was not successful. A subsequent DCCV was attempted which converted atrial flutter to atrial tachycardia at ~128 bpm. Atrial tachycardia was successfully terminated with conversion to NSR after atrial overdrive pacing of atrial tachycardia. DIAGNOSTIC DATA- since 11/01/2023 Atrial paced: 18.6%, Ventricular paced: 84.9% Atrial episodes: 98 detections for a 85.5% burden since 10/28/2023. Total 3 days ? Associated Symptoms: n/a Ventricular episodes (detects >150 bpm x 4 beats): ??None ?Associated symptoms: n/a Last EF: 45-50% per Echocardiogram on 10/28/2023 Histogram: currently blunted with programming change Magnet rate: 85 bpm ??Battery voltage: 2.99 V ??Estimated battery longevity: 7.7 years FINAL PARAMETERS Mode: DDD ??Lower rate: 100 bpm ??Upper rate: 130/130 bpm ??AV Delay: 180/150 ms ??Mode Switch: 171 bpm ??Rate Response: Mode switch only (Low, 3/3) Atrial - Amplitude: Adaptive 1.5 V ??Pulse width: 0.4 ms ?? Sensitivity: 0.3 mV ??Refractory: Auto, 250 ms ??Polarity: Bipolar Right Ventricular - Amplitude: Adaptive 2.5 V ??Pulse width: 0.4 ms ??Sensitivity: 0.9 mV ??Polarity: Bipolar Changes made: Device temporarily reprogrammed, iterative adjustments made during interrogation/testing. No permanent changes made. Conclusion: Normal pacemaker function with eventual conversion of atrial flutter to NSR after a combination of DCCV and atrial over drive pacing as detailed above. Follow up: Will see in hospital when appropriate to decrease LRL and re-enable rate response. Please call [phone] when ready to be reprogrammed. Routine follow up: Every 3 - 4 months via [facility] with annual [place] each October. Tam Temple RN, CCDS Nurse Clinician II [facility] Pacemaker/ICD Clinic [phone] Isaiah Breaux MD CARDIAC SERVIC ES ORD * (ABNORMAL) FACTOR 10 CHROMOGENIC (11/05/2023 4:21 AM CDT) Only the most recent of2 resultswithin the time period is included. FACTOR 10 CHROMOGENIC 41(L) 65 - 130 % 11/05/2023 4:41 AM CDT [facility] Blood BLOOD SPECIMEN / Unknown Non-Lab Venipuncture / Unknown 11/05/2023 4:21 AM CDT 11/05/2023 4:29 AM CDT Narrative [facility] - 11/05/2023 4:41 AM CDT Therapeutic Range 20-40% Travis Nuno MD SEND OUTS [facility] [address] [place] [address], * (ABNORMAL) RENAL FUNCTION PANEL (11/05/2023 4:21 AM CDT) Only the most recent of2 resultswithin the time period is included. SODIUM 132(L) 136 - 145 mmol/L 11/05/2023 4:59 AM CDT [facility] POTASSIUM 3.8 3.5 - 5.1 mmol/L 11/05/2023 4:59 AM CDT [facility] CHLORIDE 95(L) 98 - 107 mmol/L 11/05/2023 4:59 AM CDT [facility] CO2,TOTAL 21(L) 22 - 29 mmol/L 11/05/2023 4:59 AM CDT [facility] ANION GAP 16 5 - 18 11/05/2023 4:59 AM CDT [facility] GLUCOSE 109(H) 70 - 99 mg/dL 11/05/2023 4:59 AM CDT [facility] CALCIUM 8.1(L) 8.8 - 10.2 mg/dL 11/05/2023 4:59 AM CDT [facility] BUN 86(H) 8 - 23 mg/dL 11/05/2023 4:59 AM CDT [facility] CREATININE 3.35(H) 0.70 - 1.20 mg/dL 11/05/2023 4:59 AM CDT [facility] BUN/CREAT RATIO 26(H) 10 - 20 4:59 AM T [facility] eGFR 18(L) >90 mL/min/1.7 3m2 11/05/2023 4:59 AM CDT [facility] Comment:As of 2021, eG FR is calculated by the CKD-EPI creatinine equation without race adjustment. ??eGFR can be influenced by muscle mass, exercise, and diet. ??The reported eGFR is an estimation only and is only applicable if the renal function is stable. PHOSPHORUS 5.4(H) 2.5 - 4.5 mg/dL 11/05/2023 4:59 AM T [facility] ALBUMIN 3.3(L) 4.0 - 4.9 g/dL 11/05/2023 4:59 AM T [facility] Blood BLOOD SPECIMEN / Unknown Non-Lab Venipuncture / Unknown 11/05/2023 4:21 AM CDT 11/05/2023 4:29 AM CDT Sean Martinez MD CHEMISTRY [facility] [address] [place] [address], [place] * SCAN-CARDIAC STRIP (11/04/2023 7:30 PM CDT) Scanner OTHER * US ABDOMEN LIMITED RUQ WITH DUPLEX PORTABLE (11/03/2023 9:52 AM CDT) Anatomical Region Laterality Modality LIVER Ultrasound 11/03/2023 9:59 AM CDT Impressions 11/03/2023 9:59 AM CDT 1. Normal right upper quadrant ultrasound. No portal vein thrombus. 2. Trace right pleural effusion. Dictated by Liv Culver MD @ 11/03/2023 9:59:56 AM (Electronically Signed) Narrative 11/03/2023 9:59 AM CDT For Patients: ??As a result of the Cures Act, medical imaging exams and procedure reports are released immediately into your electronic medical record. ??You may view this report before your referring provider. ??If you have questions, please contact your health care provider. INDICATION: Abnormal liver function tests, elevated lactate. Elevated creatinine. COMPARISON: Same day aortic ultrasound, CT 01/24/2022 and 12/19/2022 TECHNIQUE: Grayscale, color Doppler, and duplex Doppler ultrasound of the right upper quadrant. FINDINGS: The pancreas is largely obscured by bowel gas but appears normal where seen. The liver is not enlarged not cirrhotic. Grossly normal hepatic parenchymal echogenicity and echotexture. No focal mass. The intrahepatic IVC is patent with normal directional flow. Normal venous waveform in IVC reflective of the cardiac and respiratory cycle. The hepatic veins are patent with normal color Doppler flow and normal venous waveforms. The hepatic artery is patent. There is continuous forward diastolic flow. The hepatic artery resistive index is 0.5. However there is robust diastolic flow which accounts for this. The systolic upstroke is normal. The main and branch portal veins are patent with normal directional flow into the liver. The splenic vein is patent at the hilum and midline. The superior mesenteric vein is not seen due to shadowing bowel gas. Mildly pulsatile portal venous waveforms. Normal gallbladder and bile ducts. The common bile duct measures 4 millimeters. Limited evaluation of the right kidney due to bowel gas. The right kidney measures about 8.5 centimeters. No large cyst or mass. No urinary tract dilatation. A trace right pleural effusion is incidentally seen. The spleen is not enlarged and measures 9.5 centimeters in length. Procedure Note Liv Culver MD - 11/03/2023 For Patients: As a result of the Cures Act, medical imagingexams and procedure reports are released immediately into your electronicmedical record. You may view this report before your referring provider.If you have questions, please contact your health care provider. INDICATION: Abnormal liver function tests, elevated lactate. Elevated creatinine. COMPARISON: Same day aortic ultrasound, CT 01/24/2022 and 12/19/2022 TECHNIQUE: Grayscale, color Doppler, and duplex Doppler ultrasound of the right upperquadrant. FINDINGS: The pancreas is largely obscured by bowel gas but appears normal whereseen. The liver is not enlarged not cirrhotic. Grossly normal hepaticparenchymal echogenicity and echotexture. No focal mass. The intrahepatic IVC is patent with normal directional flow. Normal venouswaveform in IVC reflective of the cardiac and respiratory cycle. The hepatic veins are patent with normal color Doppler flow and normalvenous waveforms. The hepatic artery is patent. There is continuous forward diastolic flow.The hepatic artery resistive index is 0.5. However there is robustdiastolic flow which accounts for this. The systolic upstroke is normal. The main and branch portal veins are patent with normal directional flowinto the liver. The splenic vein is patent at the hilum and midline. Thesuperior mesenteric vein is not seen due to shadowing bowel gas. Mildlypulsatile portal venous waveforms. Normal gallbladder and bile ducts. The common bile duct measures 4millimeters. Limited evaluation of the right kidney due to bowel gas. The right kidneymeasures about 8.5 centimeters. No large cyst or mass. No urinary tractdilatation. A trace right pleural effusion is incidentally seen. The spleen is not enlarged and measures 9.5 centimeters in length. IMPRESSION: 1. Normal right upper quadrant ultrasound. No portal vein thrombus. 2. Trace right pleural effusion. 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 No ultrasound findings of complete thrombosis or high-grade stenosis. Dictated by Liv Culver MD @ 11/03/2023 10:03:15 AM (Electronically Signed) Narrative 11/03/2023 10:03 AM CDT For Patients: ??As a result of the Cures Act, medical imaging exams and procedure reports are released immediately into your electronic medical record. ??You may view this report before your referring provider. ??If you have questions, please contact your health care provider. INDICATION: Abnormal liver function studies, elevated lactate COMPARISON: Same-day right upper quadrant ultrasound. CT 12/19/2022 TECHNIQUE: Grayscale, color Doppler, and duplex Doppler ultrasound of the aorta and its upper abdominal branches. FINDINGS: Normal caliber of the abdominal aorta. The abdominal aorta measures 2.5 centimeters proximally and 1.8 centimeters distally. There are few scattered atherosclerotic plaques. No dissection flap seen. Normal aortic color Doppler flow. Normal aortic waveforms. The proximal abdominal aorta peak systolic velocity is 46 centimeters/second. The distal abdominal aorta peak systolic velocity is 66 centimeters/second. Normal aortic arterial waveforms. The celiac artery origin is patent. Peak systolic velocity is 99 centimeters/second. There is some mild spectral broadening without a distal tardus parvus waveform. No dilatation beyond the origin. The superior mesenteric artery is patent. Normal color Doppler flow. Normal SMA waveforms with brisk systolic upstroke and near continuous forward diastolic flow. The peak systolic velocity is 125 centimeters/second. No dilatation of the superior mesenteric artery. The mesenteric veins are not evaluated directly. Procedure Note Liv Culver MD - 11/03/2023 For Patients: As a result of the Cures Act, medical imagingexams and procedure reports are released immediately into your electronicmedical record. You may view this report before your referring provider.If you have questions, please contact your health care provider. INDICATION: Abnormal liver function studies, elevated lactate COMPARISON: Same-day right upper quadrant ultrasound. CT 12/19/2022 TECHNIQUE: Grayscale, color Doppler, and duplex Doppler ultrasound of the aorta andits upper abdominal branches. FINDINGS: Normal caliber of the abdominal aorta. The abdominal aorta measures 2.5centimeters proximally and 1.8 centimeters distally. There are fewscattered atherosclerotic plaques. No dissection flap seen. Normal aorticcolor Doppler flow. Normal aortic waveforms. The proximal abdominal aortapeak systolic velocity is 46 centimeters/second. The distal abdominalaorta peak systolic velocity is 66 centimeters/second. Normal aorticarterial waveforms. The celiac artery origin is patent. Peak systolic velocity is 99centimeters/second. There is some mild spectral broadening without adistal tardus parvus waveform. No dilatation beyond the origin. The superior mesenteric artery is patent. Normal color Doppler flow.Normal SMA waveforms with brisk systolic upstroke and near continuousforward diastolic flow. The peak systolic velocity is 125centimeters/second. No dilatation of the superior mesenteric artery. The mesenteric veins are not evaluated directly. IMPRESSION: Atherosclerosis of the abdominal aorta and the origin of the celiac originand superior mesenteric artery. No ultrasound findings of completethrombosis or high-grade stenosis. Dictated by Liv Culver MD @ 11/03/2023 10:03:15 AM (Electronically Signed) Jarred Ruiz MD * (ABNORMAL) PLATELET COUNT (11/03/2023 4:04 AM CDT) Only the most recent of7 resultswithin the time period is included. PLATELET COUNT 87(L) 140 - 440 thou/cu mm 11/03/2023 4:24 AM CDT [facility] MPV 11.8(H) 6.5 - 11.0 fL 11/03/2023 4:24 AM CDT [facility] Blood BLOOD SPECIMEN / Unknown Non-Lab Venipuncture / Unknown 11/03/2023 4:04 AM CDT 11/03/2023 4:16 AM CDT Adebayo GONZALEZ HEMATOLOGY [facility] [address] [place] [address], * (ABNORMAL) COMP METABOLIC PANEL (11/01/2023 5:31 PM CDT) SODIUM 134(L) 136 - 145 mmol/L 11/01/2023 7:43 PM CDT [facility] POTASSIUM 4.5 3.5 - 5.1 mmol/L 11/01/2023 7:43 PM CDT [facility] CHLORIDE 99 98 - 107 mmol/L 11/01/2023 7:43 PM CDT [facility] CO2,TOTAL 19(L) 22 - 29 mmol/L 11/01/2023 7:43 PM CDT [facility] ANION GAP 16 5 - 18 11/01/2023 7:43 PM CDT [facility] GLUCOSE 133(H) 70 - 99 mg/dL 11/01/2023 7:43 PM CDT [facility] CALCIUM 8.3(L) 8.8 - 10.2 mg/dL 11/01/2023 7:43 PM CDT [facility] BUN 64(H) 8 - 23 mg/dL 11/01/2023 7:43 PM T [facility] CREATININE 3.24(H) 0.70 - 1.20 mg/dL 11/01/2023 7:43 PM T [facility] BUN/CREAT RATIO 20 10 - 20 7:43 PM T [facility] eGFR 19(L) >90 mL/min/1.7 3m2 11/01/2023 7:43 PM T [facility] Comment:As of 2021, eG FR is calculated by the CKD-EPI creatinine equation without race adjustment. ??eGFR can be influenced by muscle mass, exercise, and diet. ??The reported eGFR is an estimation only and is only applicable if the renal function is stable. ALBUMIN 3.4(L) 4.0 - 4.9 g/dL 11/01/2023 7:43 PM CDT [facility] PROTEIN,TOTAL 4.8(L) 6.0 - 8.0 g/dL 11/01/2023 7:43 PM CDT [facility] BILIRUBIN,TOTAL 1.3(H) 0.0 - 1.2 mg/dL 11/01/2023 7:43 PM CDT [facility] ALK PHOSPHATASE 111 40 - 129 IU/L 11/01/2023 7:43 PM CDT [facility] ALT (SGPT) 493(H) 10 - 50 IU/L 11/01/2023 7:43 PM CDT [facility] AST (SGOT) 924(H) 10 - 50 IU/L 11/01/2023 7:43 PM CDT [facility] Blood BLOOD SPECIMEN / Unknown Non-Lab Venipuncture / Unknown 11/01/2023 5:31 PM CDT 11/01/2023 5:47 PM CDT Adebayo [facility]ALEZ [facility] [address] [place] [address], * CT CHEST WO (11/01/2023 2:56 PM CDT) Anatomical Region Laterality Modality CHEST, THORAX, HEART Computed To mography 11/01/2023 4:35 PM CDT Impressions 11/01/2023 4:35 PM CDT 1. ??Postsurgical changes of recent sternotomy and aortic valve replacement. There appears to be a small amount of curvilinear hemorrhage along the posterior aspect of the ascending thoracic aorta above the level of the aortic valve replacement. No significant pericardial hemorrhage or fluid otherwise. 2. ??Small bilateral pleural effusions with areas of lower lobe atelectasis but no definite pneumonia. 3. ??Tiny left-sided pneumothorax. Please note that all CT scans at this facility use dose modulation, iterative reconstruction, and/or weight-based dosing when appropriate to reduce radiation dose to as low as reasonably achievable. Dictated by Jeremiah Sharma MD @ 11/01/2023 4:35:25 PM (Electronically Signed) Narrative 11/01/2023 4:35 PM CDT For Patients: ??As a result of the Cures Act, medical imaging exams and procedure reports are released immediately into your electronic medical record. ??You may view this report before your referring provider. ??If you have questions, please contact your health care provider. INDICATION: Evaluate for pericardial thrombus. TECHNIQUE: Noncontrast chest CT. COMPARISON: 09/11/2023. FINDINGS: Postsurgical changes of recent sternotomy. Small amount of gas within the anterior mediastinum relates to recent surgery. No space-occupying anterior mediastinal hematoma. Postsurgical changes of aortic valve replacement. There appears to be a small amount of curvilinear shaped hemorrhage just posterior to the ascending aorta on image number 74 of series 2, above the level of the valve replacement. No significant pericardial hemorrhage or fluid otherwise. Cardiac pacer device. York-Ariana catheter terminates within the right pulmonary artery. Small pleural effusions. Atelectasis involving portions of both lower lobes. Tiny left-sided pneumothorax. Limited evaluation of the upper abdomen demonstrates a distended gallbladder. Degenerative changes of the spine. No acute fractures. Procedure Note Jeremiah Sharma MD - 11/01/2023 For Patients: As a result of the Cures Act, medical imagingexams and procedure reports are released immediately into your electronicmedical record. You may view this report before your referring provider.If you have questions, please contact your health care provider. INDICATION: Evaluate for pericardial thrombus. TECHNIQUE: Noncontrast chest CT. COMPARISON: 09/11/2023. FINDINGS: Postsurgical changes of recent sternotomy. Small amount of gas within theanterior mediastinum relates to recent surgery. No space-occupyinganterior mediastinal hematoma. Postsurgical changes of aortic valvereplacement. There appears to be a small amount of curvilinear shapedhemorrhage just posterior to the ascending aorta on image number 74 ofseries 2, above the level of the valve replacement. No significantpericardial hemorrhage or fluid otherwise. Cardiac pacer device. York-Ganzcatheter terminates within the right pulmonary artery. Small pleural effusions. Atelectasis involving portions of both lowerlobes. Tiny left-sided pneumothorax. Limited evaluation of the upper abdomen demonstrates a distendedgallbladder. Degenerative changes of the spine. No acute fractures. IMPRESSION: 1. Postsurgical changes of recent sternotomy and aortic valvereplacement. There appears to be a small amount of curvilinear hemorrhagealong the posterior aspect of the ascending thoracic aorta above the levelof the aortic valve replacement. No significant pericardial hemorrhage orfluid otherwise. 2. Small bilateral pleural effusions with areas of lower lobe atelectasisbut no definite pneumonia. 3. Tiny left-sided pneumothorax. Please note that all CT scans at this facility use dose modulation,iterative reconstruction, and/or weight-based dosing when appropriate toreduce radiation dose to as low as reasonably achievable. Dictated by Jeremiah Sharma MD @ 11/01/2023 4:35:25 PM (Electronically Signed) Jarred Ruiz MD CT * (ABNORMAL) URINALYSIS MICROSCOPIC (11/01/2023 1:22 PM CDT) RBC 0-2 0-2, None Seen /HPF 11/01/2023 2:24 PM CDT [facility] WBC 6-10(A) 0-2, 3-5, None Seen /HPF 11/01/2023 2:24 PM CDT [facility] BACTERIA Few None Seen, Rare, Few Bacteria/ HPF 11/01/2023 2:24 PM CDT [facility] EPITHELIAL CELLS None Seen None Seen, Few Epi/HPF 11/01/2023 2:24 PM CDT [facility] HYALINE CASTS 11-25(A) 0-2, 3-5 /LPF 11/01/2023 2:24 PM CDT [facility] Urine URINE SPECIMEN / Unknown Non-Blood / Unknown 11/01/2023 1:22 PM CDT 11/01/2023 1:32 PM CDT Devorah Orozco MD URINE [facility] [address] [place] [address], [place] * (ABNORMAL) UA W/ SEDIMENT EXAM REFLEXED PER CRITERIA (11/01/2023 1:22 PM CDT) COLOR Yellow Yellow Color 11/01/2023 2:24 PM CDT [facility] CLARITY Cloudy(A) Clear Clarity 11/01/2023 2:24 PM CDT [facility] SPECIFIC GRAVITY,URINE 1.020 1.010, 1.015, 1.020, 1.025 11/01/2023 2:24 PM CDT [facility] PH,URINE 5.0(A) 6.0, 7.0, 8.0, 5.5, 6.5, 7.5, 8.5 11/01/2023 2:24 PM CDT [facility] UROBILINOGEN, QUALITATIVE Normal Normal EU/dl 11/01/2023 2:24 PM CDT [facility] PROTEIN, URINE 30(A) Negative mg/dL 11/01/2023 2:24 PM CDT [facility] GLUCOSE, URINE Negative Negative mg/dL 11/01/2023 2:24 PM CDT [facility] KETONES,URINE Trace(A) Negative mg/dL 11/01/2023 2:24 PM CDT [facility] BILIRUBIN,URI NE Negative Negative 11/01/2023 2:24 PM CDT [facility] OCCULT BLOOD,URINE Negative Negative 11/01/2023 2:24 PM CDT [facility] NITRITE Negative Negative 11/01/2023 2:24 PM CDT [facility] LEUKOCYTE ESTERASE Moderate(A) Negative 11/01/2023 2:24 PM CDT [facility] Urine URINE SPECIMEN / Unknown Non-Blood / Unknown 11/01/2023 1:22 PM CDT 11/01/2023 1:32 PM CDT Devorah Orozco MD URINE [facility] [address] [place] [id number], * PACER MANNY DUAL CHAMBER W REPROG (11/01/2023 12:58 PM CDT) Narrative Chica Ayers MD - 11/01/2023 12:58 PM CDT Shanae Fabian RN ? 11/01/2023 ??1:07 PM PACEMAKER EVALUATION REPORT 11/01/2023 Indication for Pacemaker: Intermittent complete heart block; frequent PVCs Primary MD: John Merchant MD Primary EP: Chica Ayers MD Primary White Work Cleaner: Dr Calloway Implanting MD: Chica Ayers MD DEVICE DATA Cell Attendant Helper [employer]: Model [place] XT DR ZAMBRANO SureScan Implant Date 10/27/2020 LEAD DATA Atrial Lead: Cell Attendant Helper Medtronic: Model [id number] - 52 cm Implant Date 10/27/2020 RV Lead: Cell Attendant Helper Medtronic: Model [id number] - 69 cm Implant Date 10/27/2020 Advisory: None. Location of evaluation: [facility] [id number] Reason for evaluation: MD request LRL from 90 to 100 in attempts to suppress PVCs MEASUREMENTS Atrial Sensing - P wave: 0.3 mV Atrial Capture: SHANIKA atrial fibrillation Atrial Lead Impedance: 380 ohms Ventricular Sensing - R wave: 4.3 mV Ventricular Capture: 1.25 V @ 0.4 ms Previous post op: 1.5 V @ 0.4 ms Ventricular Lead Impedance: 456 ohms Presenting/Underlying Rhythm: Atrial fibrillation with SVR in the 50's ??and PVCs ?? DIAGNOSTIC DATA- Since 10/28/2023 Atrial paced: 18.6%, Ventricular paced: 84.9% Atrial episodes: 98 detections for a 85.5% burden since 10/28/2023. Total 3 days ? Associated Symptoms: n/a Ventricular episodes (detects >150 bpm x 4 beats): ??None ?Associated symptoms: n/a Last EF: 45-50% per Echocardiogram on 10/28/2023 Histogram: currently blunted with programming change Magnet rate: 85 bpm ??Battery voltage: 2.99 V ??Estimated battery longevity: 7.7 years FINAL PARAMETERS Mode: DDD ??Lower rate: 100 bpm ??Upper rate: 130/130 bpm ??AV Delay: 180/150 ms ??Mode Switch: 171 bpm ??Rate Response: Mode switch only (Low, 3/3) Atrial - Amplitude: Adaptive 1.5V ??Pulse width: 0.4 ms ?? Sensitivity: 0.3 mV ??Refractory: Auto, 250 ms ??Polarity: Bipolar Right Ventricular - Amplitude: Adaptive 2.5 V ??Pulse width: 0.4 ms ??Sensitivity: 0.9 mV ??Polarity: Bipolar Changes made: Left lower rate from 90 to 100 bpm per MD request - appears to have improvement on PVCs. . Conclusion: Normal pacemaker function with return of afib as above. . ?? Follow up: Will see in hospital when appropriate to decrease LRL and re-enable rate response. Please call [phone] when ready to be reprogrammed. Routine follow up: Every 3 - 4 months via [employer] with [facility] each October. Signed by: Asad Fabian RN, [facility] 11/01/2023 Chica Ayers MD CARDIAC SERVICES ORD * (ABNORMAL) BLOOD GAS,VENOUS (11/01/2023 7:49 AM CDT) Only the most recent of2 resultswithin the time period is included. PH, VENOUS 7.39 7.32 - 7.43 11/01/2023 8:11 AM CDT [facility] PCO2, VENOUS 28(L) 41 - 51 mmHg 11/01/2023 8:11 AM CDT [facility] PO2, VENOUS 43(H) 35 - 40 mmHg 11/01/2023 8:11 AM CDT [facility] HCO3,VENOUS 17(L) 22 - 29 mmol/L 11/01/2023 8:11 AM CDT [facility] BASE EXCESS, VENOUS, POCT -6.6(L) -2.0 - 3.0 11/01/2023 8:11 AM CDT [facility] O2 SATURATION, VENOUS 66(L) 70 - 75 % 11/01/2023 8:11 AM CDT [facility] PATIENT TEMPERATURE 37.0 Degrees C 11/01/2023 8:[address] [facility] Blood VENOUS BLOOD SPECIMEN / Unknown Non-Lab Venipuncture / Unknown 11/01/2023 7:49 AM CDT 11/01/2023 8:04 AM CDT Svetlana Ellis PREFORMING MACHINE OPERATOR Student CHEMISTRY Performing Organization Address City/[facility]/ZIP Co de Phone Number [facility] [address] [place] [phone], [place] * (ABNORMAL) COMPREHENSIVE BLOOD GAS MIXED VENOUS (11/01/2023 4:53 AM CDT) Only the most recent of4 resultswithin the time period is included. O2 SATURATION, MEASURED, MIXED VENOUS 54(L) 70 - 75 % 11/01/2023 4:53 AM CDT [facility] PATIENT TEMPERATURE 37.0 Degrees C 11/01/2023 4:[address] [facility] HEMOGLOBIN,BLOOD GAS 9.0(L) 13.5 - 17.5 g/dL 11/01/2023 4:[address] [facility] Blood BLOOD SPECIMEN / Unknown 11/01/2023 4:53 AM CDT 11/01/2023 4:54 AM CDT Salinas Edmonds MD CH EMISTRY Performing Organization Address City/[facility]/ZIP Co de Phone Number [facility] [address] [place] [id number], [place] * LIPASE (11/01/2023 4:03 AM CDT) LIPASE 28.0 13.0 - 60.0 IU/L 11/01/2023 10:17 AM CDT [facility] Blood BLOOD SPECIMEN / Unknown Non-Lab Venipuncture / Unknown 11/01/2023 4:03 AM CDT 11/01/2023 4:49 AM CDT Jarred Ruiz MD CHEMISTRY [facility] [address] [place] [address], * (ABNORMAL) COMPREHENSIVE BLOOD GAS VENOUS (10/31/2023 8:58 AM CDT) PH, VENOUS 7.41 7.32 - 7.43 10/31/2023 8:58 AM CDT [facility] PCO2, VENOUS 37(L) 41 - 51 mmHg 10/31/2023 8:58 AM CDT [facility] PO2, VENOUS 30(L) 35 - 40 mmHg 10/31/2023 8:58 AM CDT [facility] HCO3,VENOUS 24 22 - 29 mmol/L 10/31/2023 8:[address] [facility] BASE EXCESS, VENOUS, POCT -0.9 -2.0 - 3.0 10/31/2023 8:58 AM CDT [facility] O2 SATURATION, VENOUS 43(L) 70 - 75 % 10/31/2023 8:58 AM CDT [facility] PATIENT TEMPERATURE 37.0 Degrees C 10/31/2023 8:58 AM CDT [facility] HEMOGLOBIN,BLOOD GAS 9.4(L) 13.5 - 17.5 g/dL 10/31/2023 8:58 AM CDT [facility] SODIUM 132(L) 136 - 145 mmol/L 10/31/2023 8:58 AM T [facility] POTASSIUM 4.2 3.5 - 5.1 mmol/L 10/31/2023 8:58 AM CDT [facility] CHLORIDE 104 98 - 107 mmol/L 10/31/2023 8:58 AM T [facility] Blood BLOOD SPECIMEN / Unknown 10/31/2023 8:58 AM CDT 10/31/2023 8:59 AM CDT Salinas Edmonds MD CH EMISTRY Performing Organization Address [facility] de Phone Number [facility] [address] [place] [address] * HEPARIN ANTIBODIES (HIT) (10/31/2023 4:00 AM CDT) Only the most recent of2 resultswithin the time period is included. Pathologist [facility] HEP BONIFACIO PF-4 INTERPRETATION Negative Negative 10/31/2023 11:01 AM CDT [facility] Blood BLOOD SPECIMEN / Unknown Non-Lab Venipuncture / Unknown 10/31/2023 4:00 AM CDT 10/31/2023 4:16 AM CDT Narrative [facility] - 10/31/2023 11:01 AM CDT This is a screening assay. Results should be used in conjunction with other laboratory and clinical findings to aid in determining the risk for heparin induced thrombocytopenia (HIT). A negative result of testing for human platelet factor 4 (H/PF4) antibodies has about a 90% negative predictive value. Positive results may indicate the presence of heparin-associated antibodies but a positive result does not confirm the diagnosis of HIT. The serotonin release assay (BINA) remains the gold-standard test for confirmatory HIT diagnosis due to its high sensitivity and specificity. Shanae Pressley MD HEMATOLOGY Performing Organization Address [facility] Phone Number [facility] [address] * PERIPHERAL BLD MORPHOLOGY (10/31/2023 4:00 AM CDT) [facility] Case Report Special Hematology Report ? Case: [id number] ? Authorizing Provider: ??Shanae Pressley MD Collected: ? 10/31/2023 0400 ? Ordering Location: ? [facility] ?Received: ?10/31/2023 0416 ? Hospital ? Pathologist: ? Kofi Martinez, ? MD ? Specimen: ?Blood ? 10/31/2023 12:21 PM CDT [facility] Final Diagnosis PERIPHERAL BLOOD: 1. Moderate thrombocytopenia 2. Moderate normocytic anemia with acanthocytes (may be associated with renal and/or liver insufficiency) and occasional circulating NRBCs 3. Mild absolute monocytosis, nonspecific 4. See comment 10/31/2023 12:21 PM CDT [facility] Comment The specific etiology of the anemia and thrombocytopenia are not apparent from the blood smear findings. It is unclear whether they are related or independent of one another. Normocytic anemia may be associated with a variety of conditions, including anemia of chronic disease, anemia of renal insufficiency, hypothyroidism, active bleeding, early iron deficiency and medication effect. There are no features to suggest hemolysis. Clinical correlation is recommended. Thrombocytopenia may be secondary to medication effect, immune-mediated processes, hypersplenism and may be transient in settings of infection (bacterial or viral). There is no evidence of platelet clumping. This case was also reviewed by Elise Urrutia MT, MS ([facility]). 10/31/2023 12:21 PM CDT [facility] Clinical Information The patient is a 78-year-old male. Pertinent clinical information: post cardiotomy thrombocytopenia He was transfused with red blood cells, platelets, and cryoprecipitate. 10/31/23 04:00 CREATININE: 1.83 (H) eGFR: ? 37 (L) 10/31/2023 12:21 PM CDT [facility]AL [facility] CBC and Differential HEMATOLOGY PARAMETERS Tested at: ??[facility] ? RESULTS ??EXPECTED VALUES WBC: ? 6.8 ?4.5-65a1853/cumm ? RBC: ? 2.61 ? 4.30-5.90 mil/cumm ??DECREASED HGB: ? 8.7 ?13.5-17.5 gm/di ? DECREASED HCT: ? 25.1 ? 37-53% ?DECREASED MCV: ? 96.0 ? 80-100 fl ? NORMOCYTIC MCH: ? 33.3 ? 26-34 pg ? MCHC: ?34.7 ? 32-36 gm/dl ? NORMOCHROMIC RDW: ? 14.5 ? 11.5-15.5% ? PLT: ? 90 ? 140-509e4040/uL ? DECREASED MPV: ? 12.0 ? 6.5-11 fl ? ELEVATED Retic: ?? 2.7 ?0.5-1.5% ?ELEVATED Differential ?Absolute (%) ?Expected (%) ?(x10*9/L) ? (x10*9/L) Neutrophils: ?4.8 (70.6) ?1.7-7.0 (42-72%) ? Lymphocytes: ?0.8 (11.8) ?0.9-2.9 (20-44%) ??DECREASED Monocytes: ?1.1 (16.2) ? <0.9 (0-11%) ? ELEVATED 10/31/2023 12:21 PM CDT [facility] Microscopic Description The final diagnosis is based on microscopic examination of an appropriately stained blood smear. 10/31/2023 12:21 PM CDT [facility]- [facility] Additional Information Interpreted at [facility], Central Laboratory - [address] [facility] [address], [place] [address] 10/31/2023 12:21 PM CDT [facility] Blood BLOOD SPECIMEN / Unknown 10/31/2023 4:00 AM CDT 10/31/2023 4:16 AM CDT Comment:CURRENT MEDICATIONSC urrent Facility-Administered Medications: ? ? acetaminophen 1,000 mg tablet (TYLENOL EXTRA STRGTH), 1,000 mg, Oral, qid, Iturra Urriola, Salinas Mt, MD? ? aluminum-magnesium hydroxide-simethicone (MAALOX PLUS; MYLANTA) 200 MG-200 MG- 20 MG/5 ML suspension 30 mL, 30 mL, Oral/NG Tube, qid prn, Salinas Oates MD? ? amiodarone (CORDARONE) 450 mg in D5W 250 mL infusion Non-PVC container, 0.5 mg/min, Intravenous, continuous, Christiane Hayden PA, Last Rate: 0.5 mg/min (10/30/23 0800)? ? amiodarone 400 mg tablet (CORDARONE), 400 mg, Oral, bid, Christiane Hayden PA? ? aspirin chewable 81 mg tablet, 81 mg, Oral/NG Tube, daily OR aspirin suppository 150 mg, 150 mg, Rectal, daily, Salinas Oates MD? ? [Provider Held] atorvastatin 40 mg tablet (LIPITOR), 40 mg, Oral, daily, Liv Ross PA? ? atrial fibrillation post-op CV surgery protocol placeholder, , Protocol, protocol, Salinas Oates MD? ? bisacodyL 10 mg suppository (DULCOLAX), 10 mg, Rectal, daily prn, Nallely Reyes PA? ? dextrose (GLUTOSE) 40 % oral gel 15-30 g of dextrose, 15-30 g of dextrose, Oral, q15min prn, Liv Ross PA? ? dextrose 50 % (D50W) injection syringe 25-100 mL, 12.5-50 g, Intravenous, q15min prn, Liv Ross PA? ? DOBUTamine (DOBUTREX) 250 mg/250 mL (1 mg/mL) infusion, 3 mcg/kg/min, Intravenous, continuous prn, Shanae Pressley MD, Last Rate: 4 mcg/kg/min (10/30/23 0800)? ? furosemide (LASIX) injection 40 mg, 40 mg, Intravenous, bid-08,14, Lumbad, Aba Beni, PA? ? glucagon (FRESENIUS) (GLUCAGEN) 1 mg/mL injection solr 1 mg, 1 mg, Intra- Muscular, q15min prn, Liv Ross PA? ? heparin (porcine) 5,000 unit/mL injection 5,000 unit, 5,000 unit, Subcutaneous, q12h, Edgar Huang PA? ? hydrALAZINE 10 mg tablet (APRESOLINE), 10 mg, Oral, tid, Aba Bear, PA? ? HYDROmorphone (PF) (DILAUDID) syringe 0.2-0.5 mg, 0.2-0.5 mg, Intravenous, q2h prn, Liv Ross PA? ? hypoglycemia protocol, , Protocol, protocol, Liv Ross PA? ? insulin aspart (U-100) (NOVOLOG FLEXPEN) 100 unit/mL (3 mL) pen 0-4 unit, 0-4 unit, Subcutaneous, bedtime, Liv Ross PA? ? insulin aspart (U-100) (NOVOLOG FLEXPEN) 100 unit/mL (3 mL) pen 0-5 unit, 0-5 unit, Subcutaneous, tid wm, Liv Ross PA? ? magnesium REPLACEMENT protocol, , Protocol, protocol, Salinas Oates MD? ? milrinone 40mg in D5W 200ml (PRIMACOR), 0.3 mcg/kg/min, Intravenous, continuous, Tam Cloud MD, Last Rate: 0.3 mcg/kg/min (10/30/23 0800)? ? mupirocin ointment (BACTROBAN OINTMENT), , Nasal, bid, Salinas Oates MD? ? naloxone (NARCAN) 0.4 mg/mL injection vial 0.4 mg, 0.4 mg, Intravenous, q1min prn, Salinas Oates MD? ? norepinephrine (LEVOPHED) 4 mg/250 mL (16 mcg/mL) D5W infusion, 0.5-15 mcg/min, Intravenous, continuous prn, Liv Ross PA, Last Rate: Stopped (10/27/235)? ? ondansetron 8 mg orally disintegrating tablet (ZOFRAN ODT), 8 mg, On The Tongue, q8h prn OR ondansetron 8 mg injection (ZOFRAN), 8 mg, Intravenous, q8h prn, Janett Hicks MD? ? oxyCODONE (ROXICODONE) immediate release tablet 5-10 mg, 5-10 mg, Oral, q4h prn, Liv Ross PA? ? pantoprazole 40 mg tablet (PROTONIX), 40 mg, Oral, daily, Liv Ross PA? ? polyethylene glycol (MIRALAX; GLYCOLAX) packet 1 Packet, 1 Packet, Oral, daily, Nallely Reyes PA? ? potassium REPLACEMENT protocol, , Protocol, protocol, Salinas Oates MD? ? prochlorperazine (COMPAZINE) 10 mg/2 mL (5 mg/mL) injection 5 mg, 5 mg, Intravenous, q6h prn, Janett Hicks MD? ? sennosides-docusate (SENOKOT S) (8.6-50 mg) tablet 1-4 Tablet, 1-4 Tablet, Oral, bid, Salinas Oates MD? ? sodium chloride 0.9 % syringe 10 mL, 10 mL, Intravenous, Each Time PRN, Salinas Oates MD? ? sodium chloride 0.9 % syringe 5 mL, 5 mL, Intravenous, q12h, Salinas Oates MD? ? sodium chloride 0.9 % syringe 5 mL, 5 mL, Intravenous, Each Time PRN, Salinas Oates MD? ? sodium nitroPRUSSide (NIPRIDE) 50 mg, sodium thiosulfate 500 mg in D5W 250 mL infusion, 0.1-2 mcg/kg/min, Intravenous, continuous, Shanae Pressley MD, Last Rate: 1.4 mcg/kg/min (10/30/23 0800)? ? warfarin *CONSULT*PHARMACY TO DOSE*, , Miscell. (Med.Supl.;Non-Drugs), Per Pharmacy, Nallely Reyes PA Shanae Pressley MD HEMATOLOGY Performing Organization Address [facility] Co de Phone Number [facility] [address] [place] [address], [place] * (ABNORMAL) RETICULOCYTES (10/31/2023 4:00 AM CDT) RETIC% 2.7(H) 0.5 - 1.5 % 10/31/2023 4:26 AM CDT [facility] [employer] RAL LABORATORY RETIC (ABSOLUTE) 0.07 0.03 - 0.08 mil/cu mm 10/31/2023 4:26 AM CDT [facility] Blood BLOOD SPECIMEN / Unknown Non-Lab Venipuncture / Unknown 10/31/2023 4:00 AM CDT 10/31/2023 4:16 AM CDT Salinas Edmonds MD HE MATOLOGY Performing Organization Address [facility] Co de Phone Number [facility] [address] [place] [address], [place] * (ABNORMAL) PLATELET ESTIMATE (10/30/2023 3:58 AM CDT) Only the most recent of2 resultswithin the time period is included. Pathologist [facility] PLATELET ESTIMATE Decreased (A) Adequate, No estimate 10/30/2023 5:04 AM CDT [facility] [employer] TRAL LABORATORY Blood BLOOD SPECIMEN / Unknown Non-Lab Venipuncture / Unknown 10/30/2023 3:58 AM CDT 10/30/2023 4:18 AM CDT Christiane GONZALEZ HEMATOLOGY Performing Organization Address [facility] Co de Phone Number [facility] Eye-PharmaCENTRAL LABORATORY [address] [place] [address], [place] * (ABNORMAL) LACTATE ARTERIAL (10/29/2023 11:56 AM CDT) Only the most recent of2 resultswithin the time period is included. LACTATE,ARTERI AL 2.2(HH) 0.5 - 1.6 mmol/L 10/29/2023 1:11 PM CDT [facility] LABORATORY-[facility] TRAL LABORATORY Blood BLOOD SPECIMEN / Unknown Non-Lab Venipuncture / Unknown 10/29/2023 11:56 AM CDT 10/29/2023 12:08 PM CDT Christiane GONZALEZ CHEMISTRY [facility] LABORATORY-CENTRAL LABORATORY [address] [place] [address], * PACER MANNY DUAL CHAMBER W REPROG (10/28/2023 12:58 PM CDT) Narrative Kofi Marroquin MD - 10/28/2023 12:58 PM CDT Nohemy Coppola RN ? 10/28/2023 ??1:50 PM PACEMAKER EVALUATION REPORT 10/28/23 Indication for Pacemaker: Intermittent complete heart block; frequent PVCs Primary MD: John Merchant MD Primary EP: Chica Ayers MD Primary White Work Cleaner: Dr Calloway Implanting MD: Chica Ayers MD DEVICE DATA Cell Attendant Helper [employer]: Model Jasmyne XT DR ZAMBRANO SureIsaiah Implant Date 10/27/2020 LEAD DATA Atrial Lead: Cell Attendant Helper [employer]tr[employer]: Model [id number] - 52 cm Implant Date 10/27/2020 RV Lead: Cell Attendant Helper [employer]: Model [id number] - 69 cm Implant Date 10/27/2020 Advisory: None. Location of evaluation: [facility] CV prep/recovery Reason for evaluation: request to reprogram post AVR MEASUREMENTS Atrial Sensing - P wave: 1.9 mV Atrial Capture: 0.5V @ 0.4ms Atrial Lead Impedance: 399 ohms Ventricular Sensing - R wave: 5.9 mV Ventricular Capture: 1.5 V @ 0.4 ms Ventricular Lead Impedance: 437 ohms Presenting/Underlying Rhythm: Sinus rhythm 72 with heart block (junctional rates ~45bpm) DIAGNOSTIC DATA- Since 10/27/2023 Atrial paced: 94.3%, Ventricular paced: 94.6% Atrial episodes: 95 min of AT/AF since 10/26 check. Appears to have maintained sinus rhythm post surgery. Historically on Xarelto. AT/AF carealert programmed on. ? Associated Symptoms: n/a Ventricular episodes (detects >150 bpm x 4 beats): ??None ?Associated symptoms: n/a Last EF: 45-50% per Echocardiogram on 10/28/2023 Histogram: currently blunted with programming change Magnet rate: 85 bpm ??Battery voltage: 2.98 V ??Estimated battery longevity: 3.7 years FINAL PARAMETERS Mode: DDD ??Lower rate: 90 bpm ??Upper rate: 130/130 bpm ??AV Delay: 180/150 ms ??Mode Switch: 171 bpm ??Rate Response: Mode switch only (Low, 3/3) Atrial - Amplitude: Adaptive 3 V ??Pulse width: 0.4 ms ?? Sensitivity: 0.3 mV ??Refractory: Auto, 250 ms ??Polarity: Bipolar Right Ventricular - Amplitude: Adaptive 4 V ??Pulse width: 0.4 ms ?? Sensitivity: 0.9 mV ??Polarity: Bipolar Changes made: Left lower rate at 90bpm per Dr. Pressley's request. Programmed outputs to 2x safety margin. Adjusted AV delays to 180/150 to promote physiologic pacing. Conclusion: Normal pacemaker function. ?? Follow up: Will see in hospital when appropriate to program lower rate back to 75bpm (05/01/21: decrease in PVCs with LR programmed to 75bpm) and rate response back on (programmed on 03/21/2023) Please call [phone] when ready to be reprogrammed. Routine follow up: Every 3 - 4 months via [employer] with annual [place] each October. Nohemy Coppola, RN Nurse Clinician II I Pacemaker/ICD Clinic [phone] Kofi Marroquin MD CARDIAC SERVICES ORD * ECHO TTE COMPLETE W CONTRAST (10/28/2023 9:25 AM CDT) AORTIC VALVE MEAN PG 4 mmHg EJECTION FRACTION 51 % PEAK TR VELOCITY 1.9 m/s EJECTION FRACTION 45 - 50% Anatomical Region Laterality Modality Ultrasound 10/28/2023 8:21 AM CDT Narrative 10/28/2023 9:42 AM CDT ECHOCARDIOGRAM SHANAE MUNGUIA ? Accession#: ?? [id number] : ?1945 78 years Study Date: ?? 10/28/2023 8:21:03 AM Gender: M ?BP: ? 143/83 mmHg Height: 178.00 cm ?BSA: ?1.82 m? ? ? Weight: 66.00 kg ? Tech: ? MM ? Referring MD: SHANAE PRESSLEY Site: ? [facility] Reading Location: [facility] Patient Location: Procedure: 2D w/ Contrast, Color Doppler and Spectral Doppler. Indication for study: S/P AVR Cardiac Rhythm: Irregular.Study quality: Final Impressions: 1. Echo contrast was administered to enhance visualization of all left ventricular segments. 2. Study performed on dobutamine 1 mcg/kg/min. 3. Normal LV size, normal wall thickness, mildly reduced global systolic function with an estimated EF of 45 - 50%. Significant csns-ue-ipam variability with ectopy. Dyssynchronous pattern of LV contraction with RV pacing. 4. Right ventricular cavity size is moderately enlarged (basal diameter 5.1 cm), global systolic RV function is moderately reduced. TAPSE 1.0 cm. 5. Mildly enlarged left atrium. 6. The aortic valve is a functioning 27 mm Inspiris bioprosthesis AVR, no stenosis (peak velocity 1.3 m/s, mean gradient 4 mmHg, EOA 1.93 cm^2, DI 0.45, SVI 17 ml/m^2) and no regurgitation. 7. The mitral valve is not well visualized, mild mitral regurgitation. 8. The tricuspid valve is normal with mild tricuspid regurgitation. 9. Intermediate estimated RA (8 mmHg) and normal estimated RV systolic (22 mmHg) pressures. Comparison Compared to prior exam of 10/27/2023: - s/p 27 mm Inspiris bioprosthetic AVR. - RV size has increased and RV function is decreased. - reduced estimated SVI in this setting. Chamber Sizes and Function Normal left ventricular size, normal wall thickness, mildly reduced global systolic function with an estimated EF of 45 - 50%. Left atrial size is mildly enlarged. Right ventricular cavity size is moderately enlarged, global systolic RV function is moderately reduced. The right atrium is severely enlarged. The pulmonary artery is of normal size and origin. The sinus of Valsalva is not well visualized. The ascending aorta is not well visualized. Valves, RV Pressures and Diastolic Function The aortic valve is functioning 27 mm Inspiris bioprosthesis replacement, no stenosis and no regurgitation. The mitral valve is not well visualized, mild mitral regurgitation. Indeterminate pattern of LV diastolic filling. The tricuspid valve is normal in structure. Tricuspid regurgitation is mild regurgitation. The tricuspid regurgitant velocity is 1.9 m/s, the estimated right ventricular systolic pressure is 14 mmHg plus right atrial pressure. The pulmonic valve is normal. Trace pulmonary regurgitation. Masses, Effusion, Shunts There is no pericardial effusion. The inferior vena cava is normal sized, respiratory size variation less than 50%. No left to right shunting was detected by limited color flow Doppler interrogation of the interatrial septum. MEASUREMENTS AND CALCULATIONS 2-D Measurements and LV Function: IVS (d) 1.0 cm LVOT diameter 2.2 cm ? HR ?87 bpm Diastology: Mitral ?Tissue Doppler E Peak 0.5 m/s ??e', Septum ? 0.08 m/s DT ? 251 msec e', Lateral ?0.08 m/s ?E/e' Average ?? 6.55 Aortic Valve: Vmax ? 1.3 m/s ??SOHAN (V) ?? 1.93 cm? ? ? VTI ?0.18 m ?? SOHAN (I) ?? 1.72 cm? ? ? LVOT V max 0.7 m/s ??Max PG ?7 mmHg LVOT VTI ?? 0.08 m ?? Mean PG ?? 4 mmHg SV ? 30 ml ?Dim Index 0.45 SV index ?? 17 ml/m? ? ? CO ?2.6 l/min ?CI ?1.4 l/min/m? ? ? Mitral Valve: MVA ?3.0 cm? ? ? MV P 1/2 73 msec Tricuspid Valve and estimated PA pressures: TR Vmax 1.9 m/s TAPSE 1.0 cm TR maxG 14 mmHg Contrast documentation: 2 ml Definity, lot #[id number], [facility]# [id number] was administered peripherally to enhance visualization of all left ventricular segments. . This study was interpreted by an [facility] accredited facility. ??Final ?? Procedure Note Shanae Pressley MD - 10/28/2023 ECHOCARDIOGRAM SHANAE MUNGUIA : 1945 78 years Study Date: 10/28/2023 8:21:03 AM Gender: M BP: 143/83 mmHg Height: 178.00 cm BSA: 1.82 m? ? ? Weight: 66.00 kg Tech: MM Referring MD: SHANAE PRESSLEY Site: [facility] Reading Location: [facility] Patient Location: Procedure: 2D w/ Contrast, Color Doppler and Spectral Doppler. Indication for study: S/P AVR Cardiac Rhythm: Irregular.Study quality: Final Impressions: 1. Echo contrast was administered to enhance visualization of all leftventricular segments. 2. Study performed on dobutamine 1 mcg/kg/min. 3. Normal LV size, normal wall thickness, mildly reduced global systolicfunction with an estimated EF of 45 - 50%. Significant [id number]-dolcvgpsyvxuwyo with ectopy. Dyssynchronous pattern of LV contraction with RVpacing. 4. Right ventricular cavity size is moderately enlarged (basal diameter5.1 cm), global systolic RV function is moderately reduced. TAPSE 1.0cm. 5. Mildly enlarged left atrium. 6. The aortic valve is a functioning 27 mm Inspiris bioprosthesis AVR, nostenosis (peak velocity 1.3 m/s, mean gradient 4 mmHg, EOA 1.93 cm^2, DI0.45, SVI 17 ml/m^2) and no regurgitation. 7. The mitral valve is not well visualized, mild mitral regurgitation. 8. The tricuspid valve is normal with mild tricuspid regurgitation. 9. Intermediate estimated RA (8 mmHg) and normal estimated RV systolic(22 mmHg) pressures. Comparison Compared to prior exam of 10/27/2023: - s/p 27 mm Inspiris bioprosthetic AVR. - RV size has increased and RV function is decreased. - reduced estimated SVI in this setting. Chamber Sizes and Function Normal left ventricular size, normal wall thickness, mildly reduced globalsystolic function with an estimated EF of 45 - 50%. Left atrial size ismildly enlarged. Right ventricular cavity size is moderately enlarged,global systolic RV function is moderately reduced. The right atrium isseverely enlarged. The pulmonary artery is of normal size and origin. Thesinus of Valsalva is not well visualized. The ascending aorta is not wellvisualized. Valves, RV Pressures and Diastolic Function The aortic valve is functioning 27 mm Inspiris bioprosthesis replacement,no stenosis and no regurgitation. The mitral valve is not well visualized,mild mitral regurgitation. Indeterminate pattern of LV diastolic filling.The tricuspid valve is normal in structure. Tricuspid regurgitation ismild regurgitation. The tricuspid regurgitant velocity is 1.9 m/s, theestimated right ventricular systolic pressure is 14 mmHg plus right atrialpressure. The pulmonic valve is normal. Trace pulmonary regurgitation. Masses, Effusion, Shunts There is no pericardial effusion. The inferior vena cava is normal sized,respiratory size variation less than 50%. No left to right shunting wasdetected by limited color flow Doppler interrogation of the interatrialseptum. MEASUREMENTS AND CALCULATIONS 2-D Measurements and LV Function: IVS (d) 1.0 cm LVOT diameter 2.2 cm HR 87 bpm Diastology: Mitral Tissue Doppler E Peak 0.5 m/s e', Septum 0.08 m/s DT 251 msec e', Lateral 0.08 m/s E/e' Average 6.55 Aortic Valve: Vmax 1.3 m/s SOHAN (V) 1.93 cm? ? ? VTI 0.18 m SOHAN (I) 1.72 cm? ? ? LVOT V max 0.7 m/s Max PG 7 mmHg LVOT VTI 0.08 m Mean PG 4 mmHg SV 30 ml Dim Index 0.45 SV index 17 ml/m? ? ? CO 2.6 l/min CI 1.4 l/min/m? ? ? Mitral Valve: MVA 3.0 cm? ? ? MV P 1/2 73 msec Tricuspid Valve and estimated PA pressures: TR Vmax 1.9 m/s TAPSE 1.0 cm TR maxG 14 mmHg Contrast documentation: 2 ml Definity, lot #[id number], [facility]# [id number] wasadministered peripherally to enhance visualization of all left ventricularsegments. . This study was interpreted by an [facility] accredited facility. Final Shanae Pressley MD ECHO ORD * (ABNORMAL) COMPREHENSIVE BLOOD GAS ARTERIAL (10/28/2023 12:36 AM CDT) PH, ARTERIAL 7.42 7.35 - 7.45 10/28/2023 12:36 AM T [facility] PCO2, ARTERIAL 28(L) 35 - 48 mmHg 10/28/2023 12:36 AM T [facility] PO2, ARTERIAL 96 83 - 108 mmHg 10/28/2023 12:36 AM T [facility] HCO3, ARTERIAL 18(L) 21 - 28 mmol/L 10/28/2023 12:36 AM T [facility] BASE EXCESS, ARTERIAL -4.9(L) -2.0 - 3.0 10/28/2023 12:36 AM T [facility] O2 SATURATION, ARTERIAL 99(H) 94 - 98 % 10/28/2023 12:36 AM T [facility] LABOR[facility] INSPIRED O2 30 10/28/2023 12:36 AM CDT [facility] Comment:Unit of Measure: Lit ers (L) if <=20; Percent (%) if >20 PATIENT TEMPERATURE 37.0 Degrees C 10/28/2023 12:36 AM CDT [facility] LABOR[facility] COLLECTION SITE ARTERIAL LINE 10/28/2023 12:36 AM CDT [facility] Blood BLOOD SPECIMEN / Unknown 10/28/2023 12:36 AM CDT 10/28/2023 12:37 AM CDT Salinas Edmonds MD EMISTRY [facility] LABOR[facility] [address] [place] [address], * (ABNORMAL) ARTERIAL BLOOD GAS (10/27/2023 8:48 PM CDT) PH, ARTERIAL 7.31(L) 7.35 - 7.45 10/27/2023 9:10 PM CDT [facility] TRAL LABORATORY PCO2, ARTERIAL 40 35 - 48 mmHg 10/27/2023 9:10 PM CDT [facility] PO2, ARTERIAL 120(H) 83 - 108 mmHg 10/27/2023 9:10 PM CDT [facility] HCO3, ARTERIAL 20(L) 21 - 28 mmol/L 10/27/2023 9:10 PM CDT [facility] BASE EXCESS, ARTERIAL -6.0(L) -2.0 - 3.0 10/27/2023 9:[address] [facility] LAB[facility] O2 SATURATION, ARTERIAL 100(H) 94 - 98 % 10/27/2023 9:[address] [facility] LAB[facility] INSPIRED O2 30 10/27/2023 9:10 PM CDT [facility] TRAL LABORATORY Comment:Unit of Measure: Lit ers (L) if <=20; Percent (%) if >20 PATIENT TEMPERATURE 37.9 Degrees C 10/27/2023 9:10 PM CDT [facility] TRAL LABORATORY Blood ARTERIAL BLOOD SPECIMEN / Unknown Arterial / Unknown 10/27/2023 8:48 PM CDT 10/27/2023 9:03 PM CDT Nayeli Rosen RN [facility] [address] [place] [address], * CARDIAC THROMBOELASTOGRAPHY (10/27/2023 1:27 PM CDT) Only the most recent of2 resultswithin the time period is included. EDUARDO REASON Diffuse Cardiac Bleeding 10/27/2023 2:56 PM CDT [facility] LABOR[facility] INTEM CT 201 122 - 208 s 10/27/2023 2:56 PM CDT [facility] INTEM CFT 88 45 - 110 s 10/27/2023 2:56 PM CDT [facility] INTEM ALPHA 73 70 - 81 ?? 10/27/2023 2:56 PM CDT [facility] INTEM A10 50 46 - 67 mm 10/27/2023 2:56 PM CDT [facility] INTEM A20 57 51 - 72 mm 10/27/2023 2:56 PM CDT [facility] INTEM MCF 59 51 - 72 mm 10/27/2023 2:56 PM CDT [facility] INTEM ML 2 % 10/27/2023 2:56 PM CDT [facility] INTEM LI30 100 % 10/27/2023 2:56 PM CDT [facility] EXTEM CT 59 43 - 82 s 10/27/2023 2:56 PM CDT [facility] EXTEM CFT 105 48 - 127 s 10/27/2023 2:56 PM CDT [facility] EXTEM ALPHA 69 65 - 80 ?? 10/27/2023 2:56 PM CDT [facility] EXTEM A10 49 46 - 67 mm 10/27/2023 2:56 PM CDT [facility] EXTEM A20 56 50 - 70 mm 10/27/2023 2:56 PM CDT [facility] EXTEM MCF 57 52 - 70 mm 10/27/2023 2:56 PM CDT [facility] EXTEM ML 3 % 10/27/2023 2:56 PM CDT [facility] EXTEM LI30 100 % 10/27/2023 2:56 PM CDT [facility] FIBTEM CT 54 s 10/27/2023 2:56 PM CDT [facility] FIBTEM ALPHA 72 ?? 10/27/2023 2:56 PM CDT [facility] FIBTEM A10 13 7 - 24 mm 10/27/2023 2:56 PM CDT [facility] FIBTEM A20 14 7 - 24 mm 10/27/2023 2:56 PM CDT [facility] FIBTEM MCF 14 7 - 24 mm 10/27/2023 2:56 PM CDT [facility] FIBTEM ML 0 % 10/27/2023 2:56 PM CDT [facility] FIBTEM LI30 100 % 10/27/2023 2:56 PM CDT [facility] HEPTEM CT 184 122 - 208 s 10/27/2023 2:56 PM CDT [facility] HEPTEM CFT 94 45 - 110 s 10/27/2023 2:56 PM CDT [facility] HEPTEM ALPHA 72 70 - 81 ?? 10/27/2023 2:56 PM CDT [facility] HEPTEM A10 48 mm 10/27/2023 2:56 PM CDT [facility] HEPTEM A20 55 51 - 72 mm 10/27/2023 2:56 PM CDT [facility] HEPTEM MCF 56 51 - 72 mm 10/27/2023 2:56 PM CDT [facility] HEPTEM ML 3 % 10/27/2023 2:56 PM CDT [facility] Blood BLOOD SPECIMEN / Unknown Non-Lab Venipuncture / Unknown 10/27/2023 1:27 PM CDT 10/27/2023 1:34 PM CDT Liv GONZALEZ HEMATOLOGY Performing Organization Address [facility]/ZIP Co de Phone Number [facility] [address] [place] [address], * (ABNORMAL) Thrombin Time - if chest tube losses > 200 mL/hr (10/27/2023 1:27 PM CDT) Only the most recent of3 resultswithin the time period is included. THROMBIN TIME 19(H) <16 sec 10/27/2023 1:49 PM CDT [facility] Blood BLOOD SPECIMEN / Unknown Non-Lab Venipuncture / Unknown 10/27/2023 1:27 PM CDT 10/27/2023 1:34 PM CDT Salinas SCHERER MATOLOGY Performing Organization Address [facility] Co de Phone Number [facility] [address] [place] [address], * (ABNORMAL) APTT - if chest tube losses > 200 mL/hr (10/27/2023 1:27 PM CDT) Only the most recent of4 resultswithin the time period is included. APTT 37(H) 28 - 36 sec 10/27/2023 1:49 PM CDT [facility] Blood BLOOD SPECIMEN / Unknown Non-Lab Venipuncture / Unknown 10/27/2023 1:27 PM CDT 10/27/2023 1:34 PM CDT Narrative [facility] - 10/27/2023 1:49 PM CDT Therapeutic Range: 57-87 seconds Salinas SCHERER MATOLOGY Performing Organization Address City/[facility] Co de Phone Number [facility] [address] [place] [address], * Fibrinogen, Quantitative - if chest tube losses > 200 mL/hr (10/27/2023 1:27 PM CDT) Only the most recent of4 resultswithin the time period is included. FIBRINOGEN,SOPHY NTITATIVE 230 193 - 401 mg/dL 10/27/2023 1:50 PM CDT [facility] Blood BLOOD SPECIMEN / Unknown Non-Lab Venipuncture / Unknown 10/27/2023 1:27 PM CDT 10/27/2023 1:34 PM CDT Salinas WAGONEROLOGY Performing Organization Address City/[facility] Co de Phone Number [facility] [address] [place] [address], * TRANSFUSE RBC (NURSE COMMUNICATION ORDER) (10/27/2023 1:22 PM CDT) Blood BLOOD SPECIMEN / Unknown Liv GONZALEZ NURSING BLOOD BA NK * TRANSFUSE RBC (NURSE COMMUNICATION ORDER) (10/27/2023 1:06 PM CDT) Blood BLOOD SPECIMEN / Unknown Liv GONZALEZ NURSING BLOOD BA NK * TRANSFUSE CRYOPRECIPITATE (NURSE COMMUNICATION ORDER) (10/27/2023 12:37 PM CDT) Blood BLOOD SPECIMEN / Unknown Liv GONZALEZ NURSING BLOOD BA NK * JEAN (10/27/2023 12:34 PM CDT) Narrative Song Dudley MD - 10/27/2023 12:34 PM CDT Song Dudley MD ? 10/27/2023 12:34 PM JEAN Completed: Patient identified, risks and benefits discussed, monitors and equipment assessed and anesthesia consent obtained. General Procedure Information Diagnostic Indications for Echo: assessment of surgical repair, hemodynamic monitoring, assessment of cardiac structure and function and elective. Physician Requesting Echo: Salinas Oates MD Location performed: OR procedure room Probe Insertion: easy Inserted by: AnesthesiologistProbe Type: multiplane Report generated by: AnesthesiologistIntubated: yes Stomach suctioned: no Bite block inserted Bite block: Removed Supplemental O2: yes [place] sump not used Anesthesia Information Anesthesiologist: ??Song Dudley MD Surgeon: ??Salinas Oates MD Echocardiogram Comments: ? Report in SYNGO Song Dudley MD ANESTHESIA PX N OTE ORDERABLES * HCHG CATH GUIDE PR30, HCHG INTRDCR NON GUIDING NON LASER PR40, HCH[facility] STOPCOCK PR5, H[facility] TUBING PR10,HCHG ANES US GUIDE FOR VASC ACCESS, [facility] TUBING PR1, [facility] KIT MONITORING PR10, HCHG KIT MONITORING PR5, HCHG TUBING PR5, HCHG DRSG PR5, HCHG DRSG PR1, HCHG KIT PR5 (10/27/2023 12:34 PM CDT) Narrative Song Dudley MD - 10/27/2023 12:34 PM CDT Song Dudley MD ? 10/27/2023 12:34 PM CVC Patient location during procedure: OR Indications: CVP monitoring and vascular access Requesting provider: Salinas Oates MD Completed: patient identified, risks and benefits discussed, consent obtained, hand hygiene performed, gown, full-body drape, chloraprep used and completely dried prior to procedure, cap, mask, gloves and timeout performed CVC Patient position: supine Laterality: right Site: internal jugular Local Anesthetic: lidocaine 1%. Ultrasound guidance: live ultrasound, ultrasound permanent image saved and sterile gel and probe cover used in ultrasound-guided central venous catheter insertion. Needle localization (ultrasound): no pathologic findings, selected vessel patent, anatomically normal, potential access sites evaluated and needle visualized entering selected vessel. Confirmation: wire visualized in vein by ultrasound Port Insertion: all ports aspirated and all ports flushed easily Securement/Dressing: Biopatch applied, dressing applied Catheter Catheter size: 9 Fr Catheter length: 12 cm Number of Lumens: triple lumen Introducer present: yes Introducer type: PAC Song Dudley MD ANESTHESIA PX N OTE ORDERABLES * RBC W/O TYPE & SCREEN (10/27/2023 12:28 PM CDT) Only the most recent of2 resultswithin the time period is included. QUANTITY 2 10/27/2023 12:28 PM CDT [facility] Blood BLOOD SPECIMEN / Unknown 10/27/2023 12:26 PM CDT Liv GONZALEZ BLOOD BANK [facility] [address] [place] [address], * ECHO JEAN INTRAOPERATIVE (10/27/2023 12:22 PM CDT) AORTIC VALVE MEAN PG 2 mmHg EJECTION FRACTION 45 - 50% Anatomical Region Laterality Modality Computed Radiogr aphy 10/27/2023 8:10 AM CDT Narrative 10/27/2023 12:37 PM CDT TRANSESOPHAGEAL ECHOCARDIOGRAM SHANAE MUNGUIA ? Accession#: ?? [id number] : ?1945 78 years Study Date: ?? 10/27/2023 8:10:07 AM Gender: M ?BP: ? 120/55 mmHg Height: 178.00 cm ?BSA: ?1.79 m? ? ? Weight: 63.00 kg ? Tech: ? Navneet BULLARD ? Referring MD: ASUNCION JIMENEZ Site: ? [facility] Reading Location: [facility] Patient Location: Procedure: 2D, JEAN, Color Doppler, Spectral Doppler and 3D Imaging. 3D post processing rendering was performed on the acquisition system to aid in pre-surgical planning. Indication for study: Aortic Insufficiency, Afib Cardiac Rhythm: Ventricular paced.Study quality: Good. Imaging limitations: This study was subject to imaging limitations due to lying in a supine position. Final Impressions: 1. Normal left ventricular size, mildly decreased global systolic function with an estimated EF of 45 - 50%. 2. Moderately enlarged left atrium. 3. Borderline concentric left ventricular hypertrophy. 4. There is mild global left ventricular hypokinesis. 5. Right ventricular cavity size is moderately enlarged, global systolic RV function is normal. 6. The aortic valve is trileaflet, no stenosis and severe regurgitation. 7. 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 8. Tricuspid valve is dilated annulus. 9. No left atrial appendage thrombus seen. 10. Pulmonary artery is mildly dilated. 11. Atrial septum is intact. 12. No thrombus left atrial appendage. 13. Normal sized aortic archat 3.1 cm with moderate plaque visualized. 14. The aortic sinus is dilated with a maximal diameter of 3.4 cm. Procedure comments: Indications, goals, risks and alternatives of the procedure were discussed with the patient and informed consent was obtained. The patient received general anesthesia. See procedural record for anesthesia details. Prior to performance of procedure, time out was called to accurately identify the patient and procedure. The Delta probe was passed without difficulty. 2D, JEAN, Color Doppler, Spectral Doppler and 3D Imaging was performed. The patient developed no apparent complications during the procedure. Estimated Blood Loss: 0 ml Post Procedure Findings BiV function is preserved. Trace MR and Trace TR persist. The new 27mm inspiris bioprosthetic aortic valve is well positioned, no PVL's, Mean gradient is 2mmHg across new aortic valve. Chamber Sizes and Function Normal left ventricular size, mildly decreased global systolic function with an estimated EF of 45 - 50%. Borderline concentric left ventricular hypertrophy. There is mild global left ventricular hypokinesis. Left atrial size is moderately enlarged. The left atrial appendage no thrombus. Normal left atrial appendage flow velocities. Right ventricular cavity size is moderately enlarged, global systolic RV function is normal. RV wall thickness is normal. The right atrium is severely enlarged. The pulmonary artery is mildly dilated. The sinus of Valsalva is dilated. The ascending aorta is normal sized. Aortic arch is normal sized with moderate plaque visualized. Descending aorta is normal sized with mild plaque visualized. Valves, RV Pressures and Diastolic Function The aortic valve is trileaflet, no stenosis and severe regurgitation. 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 There is some posterior prolapse that is not consequential on prebypass exam. Patient has only mild MR and it is central and not eccentric. The tricuspid valve is dilated annulus. Tricuspid regurgitation is trace. The pulmonic valve is normal. Pulmonary veins show a systolic blunting flow pattern. Masses, Effusion, Shunts There is no pericardial effusion. Atrial septum is intact. MEASUREMENTS AND CALCULATIONS 2-D Measurements and LV Function: Ao Sinus 3.4 cm HR 82 bpm Trans Ao 3.1 cm Aortic Valve: Vmax 1.0 m/s Max PG ??4 mmHg VTI ??0.22 m ??Mean PG 2 mmHg Mitral Valve: . ??Final ?? Procedure Note Song Dudley MD - 10/27/2023 TRANSESOPHAGEAL ECHOCARDIOGRAM SHANAE MUNGUIA : 1945 78 years Study Date: 10/27/2023 8:10:07 AM Gender: M BP: 120/55 mmHg Height: 178.00 cm BSA: 1.79 m? ? ? Weight: 63.00 kg Tech: Navneet BULLARD Referring MD: ASUNCION JIMENEZ Site: [facility] Reading Location: [facility] Patient Location: Procedure: 2D, JEAN, Color Doppler, Spectral Doppler and 3D Imaging. 3D post processing rendering was performed on the acquisition system toaid in pre-surgical planning. Indication for study: Aortic Insufficiency, Afib Cardiac Rhythm: Ventricular paced.Study quality: Good. Imaging limitations: This study was subject to imaging limitations due tolying in a supine position. Final Impressions: 1. Normal left ventricular size, mildly decreased global systolicfunction with an estimated EF of 45 - 50%. 2. Moderately enlarged left atrium. 3. Borderline concentric left ventricular hypertrophy. 4. There is mild global left ventricular hypokinesis. 5. Right ventricular cavity size is moderately enlarged, global systolicRV function is normal. 6. The aortic valve is trileaflet, no stenosis and severeregurgitation. 7. 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 8. Tricuspid valve is dilated annulus. 9. No left atrial appendage thrombus seen. 10. Pulmonary artery is mildly dilated. 11. Atrial septum is intact. 12. No thrombus left atrial appendage. 13. Normal sized aortic archat 3.1 cm with moderate plaque visualized. 14. The aortic sinus is dilated with a maximal diameter of 3.4 cm. Procedure comments: Indications, goals, risks and alternatives of theprocedure were discussed with the patient and informed consent wasobtained. The patient received general anesthesia. See procedural recordfor anesthesia details. Prior to performance of procedure, time out wascalled to accurately identify the patient and procedure. The Delta probewas passed without difficulty. 2D, JEAN, Color Doppler, Spectral Dopplerand 3D Imaging was performed. The patient developed no apparentcomplications during the procedure. Estimated Blood Loss: 0 ml Post Procedure Findings BiV function is preserved. Trace MR and Trace TR persist. The new 27mminspiris bioprosthetic aortic valve is well positioned, no PVL's, Meangradient is 2mmHg across new aortic valve. Chamber Sizes and Function Normal left ventricular size, mildly decreased global systolic functionwith an estimated EF of 45 - 50%. Borderline concentric left ventricularhypertrophy. There is mild global left ventricular hypokinesis. Leftatrial size is moderately enlarged. The left atrial appendage no thrombus.Normal left atrial appendage flow velocities. Right ventricular cavitysize is moderately enlarged, global systolic RV function is normal. RVwall thickness is normal. The right atrium is severely enlarged. Thepulmonary artery is mildly dilated. The sinus of Valsalva is dilated. Theascending aorta is normal sized. Aortic arch is normal sized with moderateplaque visualized. Descending aorta is normal sized with mild plaquevisualized. Valves, RV Pressures and Diastolic Function The aortic valve is trileaflet, no stenosis and severe regurgitation. 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 Patient has only mild MR and it is central and not eccentric. Thetricuspid valve is dilated annulus. Tricuspid regurgitation is trace. Thepulmonic valve is normal. Pulmonary veins show a systolic blunting flowpattern. Masses, Effusion, Shunts There is no pericardial effusion. Atrial septum is intact. MEASUREMENTS AND CALCULATIONS 2-D Measurements and LV Function: Ao Sinus 3.4 cm HR 82 bpm Trans Ao 3.1 cm Aortic Valve: Vmax 1.0 m/s Max PG 4 mmHg VTI 0.22 m Mean PG 2 mmHg Mitral Valve: . Final Asuncion GONZALEZ ECHO ORD * TRANSFUSE PLT (NURSE COMMUNICATION ORDER) (10/27/2023 12:19 PM CDT) Blood BLOOD SPECIMEN / Unknown Liv GONZALEZ NURSING BLOOD BA NK * TRANSFUSE PLASMA (NURSE COMMUNICATION ORDER) (10/27/2023 12:02 PM CDT) Blood BLOOD SPECIMEN / Unknown Liv GONZALEZ NURSING BLOOD BA NK * PLATELET ORDER, 1 unit (10/27/2023 11:35 AM CDT) QUANTITY 1 10/27/2023 11:35 AM CDT [facility] BLOOD [facility] Blood BLOOD SPECIMEN / Unknown 10/27/2023 11:34 AM CDT Liv GONZALEZ BLOOD BANK [facility] BLOOD BANK [address] [place] [address], * CRYOPRECIPITATE ORDER, 1 Pools (10/27/2023 11:34 AM CDT) QUANTITY 1 10/27/2023 11:34 AM CDT [facility] Blood BLOOD SPECIMEN / Unknown 10/27/2023 11:30 AM CDT Liv GONZALEZ BLOOD BANK Performing Organization Address City/[facility]/ZIP Co de Phone Number [facility] [address] [place] [address], * PLATELET EA UNIT (10/27/2023 11:34 AM CDT) PRODUCT BLOOD TYPE AB Rh Positive [facility] PRODUCT ID NUMBER [id number] [facility] PRODUCT STATUS Transfused [employer] LAB-CENTRAL LAB BLOOD BANK PRODUCT DESCRIPTION SDP PAS-C PS LR Pt2 [facility] PRODUCT CODE [id number] [facility] ISSUE DATE/TIME 10/27/23 11:46 [facility] Liv GONZALEZ BLOOD BANK Performing Organization Address City/[facility]/ZIP Co de Phone Number [facility]-CENTRAL [facility] BLOOD BANK [address] [place] [address], * CRYOPRECIPITATE EA UNIT (10/27/2023 11:30 AM CDT) PRODUCT BLOOD TYPE A Rh Positive [facility] PRODUCT ID NUMBER [id number] [facility] PRODUCT STATUS Transfused [employer] [facility]-CENTRAL LAB BLOOD BANK PRODUCT DESCRIPTION CRYO [facility]LOOD [facility] PRODUCT CODE [id number] [facility]AL LAB BLOOD BANK ISSUE DATE/TIME 10/27/23 12:19 [facility] Liv GONZALEZ BLOOD BANK [facility] [address] [place] [address], * TRANSFUSE PLASMA (NURSE COMMUNICATION ORDER) (10/27/2023 11:22 AM CDT) Blood BLOOD SPECIMEN / Unknown Liv GNOZALEZ NURSING BLOOD BA NK * PLASMA ORDER, 2 units (10/27/2023 10:50 AM CDT) QUANTITY 2 10/27/2023 10:50 AM CDT [facility] Blood BLOOD SPECIMEN / Unknown 10/27/2023 10:47 AM CDT Liv GONZALEZ BLOOD BANK Performing Organization Address [facility] de Phone Number [facility] [address] [place] [address], * PLASMA SNGL DON FFPEA UNIT (10/27/2023 10:47 AM CDT) Only the most recent of2 resultswithin the time period is included. PRODUCT BLOOD TYPE A Rh Positive [facility] PRODUCT ID NUMBER [id number] [facility] PRODUCT STATUS Transfused [facility] [employer]-CENTRAL LAB BLOOD [facility]ANK PRODUCT DESCRIPTION FP ACD-A Thaw [facility] B[facility] PRODUCT CODE [id number] [facility] CM [facility] BLOOD BANK ISSUE DATE/TIME 10/27/23 10:55 [facility] [employer] LAB BLOOD BANK Liv GONZALEZ BLOOD BANK Performing Organization Address [facility] Co de Phone Number [facility] [address] [place] [address], * PATH TISSUE EXAM (10/27/2023 8:58 AM CDT) Case Report Pathology Report ?Case: [id number] ? Authorizing Provider: ??Iturra Urriola, [place] ??Collected: ? 10/27/2023 0858 ? Mt, ? Ordering Location: ? [facility] ?Received: ?10/27/2023 0943 ? Hospital ? Pathologist: ? Irene Keith, DO ? Specimen: ?Aortic Valve Leaflets, aortic valve leaflets ? 10/28/2023 12:22 PM CDT [facility]-C ENTRAL LABORATORY Final Diagnosis A) AORTIC VALVE, LEAFLETS, EXCISION: 1. 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 Negative for significant inflammation and vegetations 3. Clinical diagnosis of severe, symptomatic aortic regurgitation 10/28/2023 12:22 PM CDT [facility] [employer] [facility]- ENTRAL LABORATORY Clinical Information Mr. Munguia is a 78 y.o. with severe symptomatic aortic regurgitation. 10/28/2023 12:22 PM CDT [facility]-C ENTRAL LABORATORY Gross Description A) Received in formalin, labeled with the patient's name and aortic valve leaflets, are 3 yellow-oquendo pliable aortic valve cusps measuring 2.4 x 1.3 x 0.1 cm, 2.5 x 1.3 x 0.1 cm and 3.7 x 1.7 x 0.1 cm. ??No lesion is identified. ??There is mild fibrotic thickening along the free edges. ??Water Softener Installer sections are submitted in 1 cassette. Specimen images have been uploaded. Placed in formalin at 0935 on 10/27/2023 DPL 10/27/2023 10/28/2023 12:22 PM CDT [facility]-C ENTRAL LABORATORY Microscopic Description The final diagnosis is based on microscopic examination of appropriate sections of all specimens. The microscopic appearance substantiates the diagnosis. Interpreted at [facility] (Central Lab, [facility], [facility], [facility], [facility], [facility][Note 3], [facility]) 10/28/2023 12:22 PM CDT [facility]-C ENTRAL LABORATORY Additional Information Interpreted at [facility], Central Laboratory - [address], [place] [address] 10/28/2023 12:22 PM CDT [facility]-C ENTRAL LABORATORY Tissue (Aortic Valve Leaflets) 10/27/2023 8:58 AM CDT 10/27/2023 9:43 AM CDT [place] GONZALEZ THOLOGY/CYTOLOGY [facility]-CENTRAL LABORATORY [address] [place] [address], [place] * PACER MANNY DUAL CHAMBER W REPROG (10/27/2023 8:37 AM CDT) Narrative [place] Oates MD - 10/27/2023 8:37 AM CDT [place] Oates MD ? 11/17/2023 ??8:18 PM PACEMAKER EVALUATION REPORT 10/27/2023 Indication for Pacemaker: Intermittent complete heart block; frequent PVCs Primary MD: John Merchant MD Primary EP: Chica Ayers MD Primary White Work Cleaner: Dr Calloway Implanting MD: Chica Ayers MD DEVICE DATA Cell Attendant Helper [employer]: Model [place] XT DR KENYA Kwon Implant Date 10/27/2020 LEAD DATA Atrial Lead: Cell Attendant Helper Medtronic: Model 5076 - 52 cm Implant Date 10/27/2020 RV Lead: Cell Attendant Helper Medtronic: Model 3830 - 69 cm Implant Date 10/27/2020 Advisory: None. Location of evaluation: [facility] CV prep/recovery Reason for evaluation: request to reprogram prior to open heart surgery. MEASUREMENTS (Autos) Atrial Sensing - P wave: 3.6 mV Atrial Capture: SHANIKA AF Atrial Lead Impedance: 437 ohms Ventricular Sensing - R wave: 9.8 mV - auto 10/27/23 Ventricular Capture: 1.625 V @ 0.4 ms Ventricular Lead Impedance: 551 ohms Presenting/Underlying Rhythm: A-Fib/flutter with ventricular sensing at faster rates (frequent PVC's vs conducted AF). Trialed at VOO 90 bpm with R on T noted. Slower ventricular rates ~ 40's at times noted with pacemaker inhibition test. DIAGNOSTIC DATA- Since 07/15/2023 Atrial paced: 2.5%, Ventricular paced: 80 % Atrial episodes: Ongoing A-Fib/flutter with overall controlled ventricular rates - see burden and ventricular rates below. ? Associated Symptoms: Pt denies current awareness Ventricular episodes (detects >150 bpm x 4 beats): ??None ?Associated symptoms: n/a Last EF: 50% per Echocardiogram on 07/26/2022 Histogram: Appropriate Carried Forward: Patient ??declines limitations and did not want his sensor on. Magnet rate: 85 bpm ??Battery voltage: 2.99 V ??Estimated battery longevity: 6.9 years FINAL PARAMETERS Mode: DDD ??Lower rate: 75 bpm ??Upper rate: 130/130 bpm ??AV Delay: 210/210 ms ??Mode Switch: 171 bpm ??Rate Response: Mode switch only (Low, 3/3) Atrial - Amplitude: Adaptive 3 V ??Pulse width: 0.4 ms ?? Sensitivity: 0.3 mV ??Refractory: Auto, 250 ms ??Polarity: Bipolar Right Ventricular - Amplitude: Adaptive 4 V ??Pulse width: 0.4 ms ?? Sensitivity: 0.9 mV ??Polarity: Bipolar Changes made: Device left in sensing mode DDD (rate response disabled) due to elevated ventricular rates/PVC's. Rate increased from 75 to 90 bpm per request. Increased outputs. Conclusion: Normal pacemaker function. ??Ongoing AT/AF - reprogrammed for surgery as above. Follow up: Will see in hospital when appropriate to program back. Please call [phone] when ready to be reprogrammed. Routine follow up: Every 3 - 4 months via [employer]form with annual [place] each October. Waqar Ye, RN Nurse Clinician II [facility] Pacemaker/ICD Clinic [phone] Chica Ayers MD CARDIAC SERVICES ORD * HCHG TUBE PR1, HCHG INSTRUMENT DISP PR10, HCHG STYLET PR1 (10/27/2023 7:46 AM CDT) Narrative Benito Keen CRNA - 10/27/2023 7:46 AM CDT Benito Keen CRNA ? 10/27/2023 ??7:46 AM Procedure: ETT Patient location during procedure: OR ETT Properties Mask Ventilation: easy Final Technique: video laryngoscopy Type: straight Location: oral Cuffed: yes Tube Size: 8.0 mm Stylet: yes Laryngoscope Blade: Glidescope Blade Size: 4 Cormack-Lehane Grade View: 1 Insertion Attempts: 1 Placement Verification: auscultation, end tidal CO2 and symmetrical chest wall movement Assessment: pharynx clear, atraumatic and dentition unchanged Secured at: 22 Measured From: lips Difficulty: 0 (not difficult) Song Dudley MD ANESTHESIA PX N OTE ORDERABLES * HCHG CATH PR5, HCHG ANES US GUIDE FOR VASC ACCESS, HCHG ANES ARTERIAL CATH FOR SAMPLE MONITOR TRANS, HCHG TUBING PR1, HCHG TUBING PR20, HCHG DRSG PR1, HCHG DRSG PR5, HCHG KIT PR5 (10/27/2023 7:02 AM CDT) Narrative Song Dudley MD - 10/27/2023 7:02 AM CDT Song Dudley MD ? 10/27/2023 ??7:02 AM Arterial Line Patient location during procedure: pre-op Start time: 10/27/2023 6:58 AM End time: 10/27/2023 7:02 AM Indications: lab sampling and monitoring Requesting provider: [place] Oates MD Staffing Preanesthetic Checklist Completed: patient identified, risks and benefits discussed, consent obtained and timeout performed Arterial Line Patient position: supine. ??Comment:. Laterality: left Site: radial Local Anesthetic: lidocaine 1%. Ultrasound guidance: live ultrasound, ultrasound permanent image saved and sterile gel and probe cover used in ultrasound-guided central venous catheter insertion. Ultrasound Indication: arteriosclerosis Needle localization (ultrasound): selected vessel patent, needle visualized entering selected vessel and potential access sites evaluated. Securement/dressing: Biopatch applied, dressing applied. ??Comment: Supplemental O2: supplemental oxygen. ??Comment:. Vessel Scientific Linguist Additional supplies used to locate vessel: no Needle Catheter size: 20 G. ??Comment:. Catheter length: 4.5 cm. ??Comment: Events: no complications. Song Dudley MD ANESTHESIA PX N OTE ORDERABLES * Type and Screen (10/27/2023 6:11 AM CDT) ABORH A Rh Positive 10/27/2023 6:59 AM CDT [facility]365 (fka [employer]) LAB-CENTRAL LAB BLOOD BANK ANTIBODY SCREEN Negative Negative 10/27/2023 6:59 AM CDT [facility]TR[facility] LAB BLOOD BANK SPECIMEN EXPIRATION DATE/TIME 10/30/23 23:59 10/27/2023 6:59 AM CDT [facility] BLOOD [facility] Blood BLOOD SPECIMEN / Unknown Non-Lab Venipuncture / Unknown 10/27/2023 6:11 AM CDT 10/27/2023 6:22 AM CDT Asuncion GONZALEZ BLOOD BANK [facility] LAB BLOOD BANK [address] [place] [address], * (ABNORMAL) Glucose, Fasting (10/27/2023 6:11 AM CDT) GLUCOSE 108(H) 70 - 99 mg/dL 10/27/2023 6:50 AM CDT [facility] Blood BLOOD SPECIMEN / Unknown Non-Lab Venipuncture / Unknown 10/27/2023 6:11 AM CDT 10/27/2023 6:20 AM CDT Asuncion GONZALEZ CHEMISTRY Performing Organization Address City/[facility] Co de Phone Number [facility] [address] [place] [address], * SCAN-OPERATIVE/PROCEDURE REPORT (10/27/2023 12:00 AM CDT) Narrative 10/27/2023 12:00 AM CDT Ordered by an unspecified provider. Other Clinical Staff OTHER * CVL CORONARY ANGIOGRAM (10/13/2023 11:47 AM CDT) Anatomical Region Laterality Modality X-Ray Angiograph y, X-Ray Angiography 10/13/2023 11:4 7 AM CDT Narrative Procedure Note Shanae Fan MD - 10/13/2023 3:24 PM CDT DATE OF SERVICE: 10/13/2023 PREOPERATIVE DIAGNOSES: 1. Preoperative angiography. 2. Severe AI. 3. Ascending aorta enlargement. PROCEDURE: 1. Coronary arteriography. 2. Perclose groin closure. 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 There were separateorigins of the LAD and the left circumflex to the left coronary cusp. TheLAD is a type 3 vessel. The previously placed proximal LAD stents arewidely patent. There was no significant obstruction noted distally. The left circumflex was nondominant and in significantly diseased. Thereis mild mid posterolateral branch obstruction. The right coronary artery is dominant and significantly diseased. Therewere minor luminal irregularities noted. This patient was setup for radial approach. However the patient hadactive Raynaud's syndrome with a purple right hand. This lead to afemoral approach. SUMMARY FINDINGS: 1. Preoperative angiography. 2. Separate left circumflex and LAD origin in left coronary cusp. 3. Patent LAD stents. 4. No significant coronary disease. 5. Successful Perclose groin closure. Results are automatically released to your Tabber (Meican) accountonce available, in compliance with federal regulations. This means thatyou may see your results before your provider has had a chance to reviewthem. Please allow 2-3 business days for your provider to comment on theresults. SHANAE FAN MD MRM/GNRaphael/RYAN VJID: [id number] TJID: [id number] cc: JOHN MERCHANT MD Padmini GONZALEZ CV IMAGING * ANTI HCV (03/13/2022 9:30 AM CDT) HEPATITIS C ANTIBODY Non-React amadeo Non-React amadeo 03/13/2022 4:04 PM CDT [facility] Comment:Antibodies to HCV no t detected; does not exclude the possibility of exposure to HCV. Blood BLOOD SPECIMEN / Unknown Venipuncture / Unknown 03/13/2022 9:30 AM CDT 03/13/2022 9:31 AM CDT John Merchant MD SEND OUTS [facility] 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 Healthcare Directive 09/04/2020 8:19 AM * Full Code (Latest Code Status on File) Date Activated Date Inactivated Comments 10/27/2023 5:54 AM 11/14/2023 6:23 PM Question Answer Comments Code Status Discussion: Unable to Assess Preferences, Provider to review later * Full Code Date Activated Date Inactivated Comments 10/13/2023 12:07 PM 10/13/2023 5:14 PM Question Answer Comments Code Status Discussion: Reviewed Preferences * Full Code Date Activated Date Inactivated Comments 08/11/2023 3:55 PM 08/11/2023 7:04 PM Question Answer Comments Code Status Discussion: Unable to Assess Preferences, Provider to review later * Full Code Date Activated Date Inactivated Comments 06/07/2022 11:10 AM 06/07/2022 5:51 PM Question Answer Comments Code Status Discussion: Reviewed Preferences * Full Code Date Activated Date Inactivated Comments 11/22/2021 10:32 AM 11/22/2021 3:24 PM Question Answer Comments Code Status Discussion: Reviewed Preferences 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
[2024-01-02 12:08] LABS: Basophils Absolute Auto 0.02 K/uL (0.00-0.30); Basophils Percent Auto 0.3 % (0.0-3.0); Eosinophils Absolute Auto 0.13 K/uL (0.00-0.50); Hematocrit 41.1 % (37.0-53.0); Hemoglobin* 13.1 gm/dL (13.5-17.5); Immature Granulocytes Abs Auto 0.01 K/uL (0.00-0.30); Immature Granulocytes Pct Auto 0.2 %; Lactate Sepsis w/Reflex* 1.4 mmol/L (0.5-1.9); Lymphocytes Absolute Auto 1.34 K/uL (0.90-2.90); Lymphocytes Percent Auto 21.1 % (20-44); Mean Corpuscular HGB Conc 32 gm/dL (32-36); Mean Corpuscular Hemoglobin 31 pg (26-34); Mean Corpuscular Volume 97 fL (80-100); Monocytes Percent Auto 14.9 % (0.0-11.0); Neutrophils Absolute Auto 3.91 K/uL (1.7-7.0); Neutrophils Percent Auto 61.5 % (42.0-72.0); Platelet Count* 261 K/uL (140-440); RDW Coefficient of Variation % 16.6 % (11.5-15.5); Red Blood Count 4.26 m/uL (4.30-5.90); White Blood Count* 6.36 K/uL (4.50-11.00)
[2024-01-02 12:12] LABS: Slide Review Reflex No
[2024-01-02] MEDS: 0.9 % SODIUM CHLORIDE 500 ML 500 ML IV ×2 (12:14→18:10)
[2024-01-02 12:17] LABS: Troponin, Point-of-Care* 0.08 ng/ml (0.01-0.04)
[2024-01-02 12:29] LABS: Albumin* 4.3 g/dL (3.3-5.0); Chloride* 104 mmol/L (96-114)
[2024-01-02 12:30] LABS: Potassium* 4.6 mmol/L (3.6-5.1); Sodium* 135 mmol/L (135-149)
[2024-01-02 12:32] LABS: Creatinine* 1.6 mg/dL (0.5-1.5); Est. Creatinine Clearance* 30.02; Estimated Glomerular Filt Rate 44 ml/min
[2024-01-02 12:33] LABS: Alanine Aminotransferase* 151 U/L (4-50); Alkaline Phosphatase* 92 U/L (40-150); Anion Gap 8 mEq/L (7-15); Aspartate Amino Transferase* 362 U/L (12-35); Bilirubin Direct* 0.4 mg/dL (0.0-0.5); Bilirubin Total* 0.8 mg/dL (0.1-1.5); Blood Urea Nitrogen* 30 mg/dL (7-30); Calcium* 9.3 mg/dL (8.4-10.6); Carbon Dioxide* 23 mmol/L (20-32); Glucose* 114 mg/dL (60-115); Lipase* 231 U/L (23-300); Total Protein* 7.1 g/dL (6.0-8.3)
[2024-01-02 12:39] LABS: C Reactive Protein* < 0.5 mg/dL (0.5-1.0)
[2024-01-02 13:06] LABS: Erythrocyte SedimentationRate* 6 mm/hr (2-15)
[2024-01-02 13:21] LABS: Appearance Urine Clear (Clear); Bilirubin Urine Negative (Negative); Blood Urine 2+ (Negative); Color Urine Yellow (Yellow); Glucose Urine Negative (Negative); Ketones Urine Negative (Negative); Leukocyte Esterase Urine Negative (Negative); Nitrite Urine Negative (Negative); Protein Urine 1+ (Negative); Specific Gravity Urine 1.015 (1.000-1.030); Urobilinogen Urine 0.2 (0.2-1.0); pH Urine 5.5 (5.0-8.5)
[2024-01-02 13:58] LABS: RBC Urine 0-2 (0-2); WBC Urine 0-2 (0-5)
[2024-01-02 15:30] LABS: Troponin, Point-of-Care* 0.09 ng/ml (0.01-0.04)
[2024-01-03] VITALS: PULSE 114; RESP 14; O2SAT 98
[2024-01-03 00:10] VITALS: BP 135/102; PULSE 110; RESP 16; TEMP 36.3
== END 2024-01-03 00:19 | disposition other institution (70) ==
PROVIDERS: Emergency Provider Emergency Medicine; PCP Family Medicine
DX: R00.0 Tachycardia, unspecified (principal)
CPT/HCPCS: 36415; 71045; 80048; 80076; 81001; 83605; 83690; 84443; 84484; 85025; 85651; 86140; 93005; 94761; 99284; 99285; 99291; J7030

== ENCOUNTER 2025-05-04 08:48 | Outpatient (CLI) | payer MEDICARE, BC, SELFPAY ==
--- NOTE | 2025-05-04 09:15 | CRLHL7_ITS ---
For Patients: As a result of the Cures Act, medical imaging exams and procedure reports are released immediately into your electronic medical record. You may view this report before your referring provider. If you have questions, please contact your health care provider. For Patients: As a result of the Cures Act, medical imaging exams and procedure reports are released immediately into your electronic medical record. You may view this report before your referring provider. If you have questions, please contact your health care provider. CLINICAL HISTORY:Assess swallow. Dysphagia TECHNIQUE:Fluoroscopy was provided for speech pathologist during video swallow study. Please see additional report for full details and recommendations. 1 minutes and 15 seconds of fluoroscopy time was utilized.FINDINGS:Patient was given barium of varying consistencies to ingest. There was no laryngeal penetration or aspiration during ingestion of thin barium liquids. There was no laryngeal penetration or aspiration during ingestion of nectar, pudding + cracker. Please note residue present to the vallecula following ingestion of barium liquids. AP imaging normal. Dictated by Kulwinder Brown MD @ 05/04/2025 10:48:00 AM (Electronically Signed)
== END 2025-05-04 08:49 | disposition home or self-care (01) ==
LOC: RAD 08:49
PROVIDERS: PCP Family Medicine; Visit Provider Family Medicine
DX: R13.10 Dysphagia, unspecified (principal)
CPT/HCPCS: 74230; 92611

== ENCOUNTER 2025-05-09 11:13 | Emergency (ER) | payer MEDICARE, BC, SELFPAY ==
[2025-05-09 11:44] VITALS: BP 142/98; PULSE 65; RESP 18; TEMP 36.3; O2SAT 97; BMI 20.7
--- NOTE | 2025-05-09 13:13 | CRLHL7_ITS ---
For Patients: As a result of the Century Cures Act, medical imaging exams and procedure reports are released immediately into your electronic medical record. You may view this report before your referring provider. If you have questions, please contact your health care provider. Indication: pain, swelling Technique: Three views of the left ankle Comparison: None Findings/Impression: No acute fracture or malalignment. Likely sequela of remote fracture along the inferior margin of the medial malleolus and dorsal aspect of the navicular bone. No suspicious osseous lesions. Large plantar aspect calcaneal enthesophyte. No appreciable ankle effusion. Mild soft tissue edema about the ankle. Dictated by Paco Martínez MD @ 05/09/2025 1:59:12 PM (Electronically Signed)
--- NOTE | 2025-05-09 13:13 | CRLHL7_ITS ---
For Patients: As a result of the Century Cures Act, medical imaging exams and procedure reports are released immediately into your electronic medical record. You may view this report before your referring provider. If you have questions, please contact your health care provider. Indication: Pain in hip soreness. Technique: Left hip 3 views. Comparison: None. Findings: Bones: No fracture or dislocation. No worrisome osseous lesion. Joint spaces: Mild bilateral femoroacetabular joint osteoarthrosis. No significant sacroiliac arthrosis. Soft tissues: Hyperdense foci in the rectosigmoid colon presumably enteric contents. Otherwise normal soft tissues and abdominopelvic structures. Impression: 1. No fracture or dislocation. 2. Mild bilateral femoroacetabular joint osteoarthrosis. Dictated by Yaron Mart MD @ 05/09/2025 1:58:42 PM (Electronically Signed)
--- NOTE | 2025-05-09 13:13 | ED.GENADULT ---
HPI - General Adult General Chief complaint: Lower Extremity Swelling Stated complaint: Swollen left leg Time Seen by Provider: 05/09/25 13:05 History of Present Illness HPI narrative: This 80-year-old male comes in with family members because of some swelling and pain in his left ankle. He has also had pain in his left hip but states that the hip seems to be getting better. These symptoms have been present for the past week or 2. He does not report any injury event or strenuous activity to trigger these symptoms. He states that this pain does keep him awake at night. He is on Eliquis and does not report any chest pain or shortness of breath. His swelling in his ankle is limited to the ankle only with no swelling in the calf or upper leg. Related Data Home Medications ?Medication ?Instructions ?Recorded ?Confirmed atorvastatin 40 mg tablet 40 mg PO DAILY 10/06/22 05/09/25 nifedipine 30 mg tablet,extended 30 mg PO DAILY 10/06/22 05/09/25 release 24 hr pantoprazole 40 mg tablet,delayed 40 mg PO DAILY 10/06/22 05/09/25 release apixaban 5 mg tablet (Eliquis) 5 mg PO BID 05/09/25 05/09/25 losartan 25 mg tablet 25 mg PO DAILY 05/09/25 05/09/25 metoprolol succinate 100 mg 100 mg PO BID 05/09/25 05/09/25 tablet,extended release 24 hr Previous Rx's ?Medication ?Instructions ?Recorded hydrocodone 5 mg-acetaminophen 325 1 tab PO Q4-6H PRN pain #20 tabs 25 mg tablet Allergies Allergy/AdvReac Type Severity Reaction Status Date / Time oxycodone AdvReac Severe Verified 05/09/25 11:51 Review of Systems Status of ROS: Reports: 10 or more systems reviewed and unremarkable except as noted in History and below Narrative: Constitutional: No fevers, no weight gain or loss. Eyes: No discharge. No vision changes. HENT: No congestion, no sore throat, no ear pain. Cardiovascular: No chest pain, no palpitations. Respiratory: No shortness of breath, no wheezes, no cough. Gastrointestinal: No abdominal pain, no vomiting, no diarrhea. Genitourinary: No dysuria, no hematuria. Musculoskeletal: Left ankle and left hip pain. Left ankle swelling. Skin: No rashes, no pruritis. Neurological: No dizziness, weakness, sensory change, speech change. Endo/Heme/Allergies: No bruising or bleeding. No polydipsia. Pysch: no suicidality, no anxiety, no insomnia. All other systems reviewed and are negative. [facility] Medical History Small intestinal bacterial overgrowth (SIBO) ?K63.89 - Other specified diseases of intestine (ICD-10) Acute diverticulitis ?K57.92 - Diverticulitis of intestine, part unspecified, without perforation or abscess without bleeding (ICD-10) Surgical History History of bowel resection ?Z90.49 - Acquired absence of other specified parts of digestive tract (ICD-10) History of appendectomy ?Z90.49 - Acquired absence of other specified parts of digestive tract (ICD-10) Social History Smoking Status: Never smoker Do you use any of these nicotine containing products: None Second hand tobacco smoke exposure: No How often do you have a drink containing alcohol: never How often do you have six or more drinks on one occasion: Never AUDIT-C Alcohol total score: 0 Non-prescribed substance use: denies use service: Yes Exam Narrative: Exam Narrative: Constitutional: Well-developed, well-nourished, no acute distress. HEENT: Normocephalic, atraumatic. Neck: Normal range of motion. Nontender. Supple. Heart: Regular. No murmurs. Normal rate. Intact distal pulses. Lungs: Clear to auscultation. No chest discomfort. No wheezes, rhonchi, or rales. Abdomen: Normal bowel sounds. Nontender. No rebound tenderness. Genitalia: Deferred. Back: No midline tenderness. Normal range of motion. Extremities: Left ankle is larger compared to right. There is no pitting edema. Skin: Intact. No rash. Warm. No erythema or pallor. Neurologic: No altered sensation. No weakness. Alert and oriented. Psychiatric: No suicidality. No anxiety or depression. No insomnia. Nursing notes and vitals signs are reviewed. Const: Vital Signs, click to edit/add: Vital Signs - 24 hr 05/09/25 11:44 Temperature 97.3 F L Pulse Rate [Right Pulse Oximeter] 65 Respiratory Rate 18 Blood Pressure [Ri ght Upper Arm] 142/98 H Pulse Oximetry 97 Oxygen Delivery Me thod Room Air Course Vital Signs Vital signs: Initial Vital Signs Temperature 97.3 F L 05/09/25 11:44 Temperature Source Temporal Artery Scan 05/09/25 11:44 Pulse Rate 65 05/09/25 11:44 Pulse Rhythm Regular 05/09/25 11:44 Pulse Strength 3+ Normal 05/09/25 11:44 Respiratory Rate 18 05/09/25 11:44 Blood Pressure 142/98 H 05/09/25 11:44 Blood Pressure Mean 112 H 05/09/25 11:44 Blood Pressure Position Sitting 05/09/25 11:44 Pulse Oximetry 97 05/09/25 11:44 Oxygen Delivery Method Room Air 05/09/25 11:44 Vital Signs Temperature 97.3 F L 05/09/25 11:44 Pulse Rate 65 05/09/25 11:44 Respiratory Rate 18 05/09/25 11:44 Blood Pressure 142/98 H 05/09/25 11:44 Pulse Oximetry 97 05/09/25 11:44 Oxygen Delivery Method Room Air 05/09/25 11:44 Temperature 97.3 F L 05/09/25 11:44 Pulse Rate 65 05/09/25 11:44 Respiratory Rate 18 05/09/25 11:44 Blood Pressure 142/98 H 05/09/25 11:44 Pulse Oximetry 97 05/09/25 11:44 Oxygen Delivery Method Room Air 05/09/25 11:44 Medical Decision Making MDM Narrative Medical decision making narrative: This patient comes in reporting left hip pain which seems to be a bit better recently but now also left ankle pain and swelling. There was no trauma event to trigger this. His symptoms are left side only. X-ray is obtained of the left hip and left ankle and by my review and according to radiologist there is no acute findings here. There is mild degenerative changes. The patient does have an appointment with orthopedic clinic in 3 days. He states that he was unable to sleep well last night because of pain in his left ankle. I did provide a prescription for tablets of [place] for pain relief. He states that he might use a cane which she has at home to assist with ambulating if needed but denied any need for walker or crutches. Imaging Data XR L Ankle: Radiologist's impression: No acute fracture or malalignment. Likely sequela of remote fracture along the inferior margin of the medial malleolus and dorsal aspect of the navicular bone. No suspicious osseous lesions. Large plantar aspect calcaneal enthesophyte. No appreciable ankle effusion. Mild soft tissue edema about the ankle. XR L Hip: Radiologist's impression: 1. No fracture or dislocation. 2. Mild bilateral femoroacetabular joint osteoarthrosis. Discharge Plan Discharge Clinical Impression: Acute hip pain, Acute ankle pain Patient Disposition: Home, Self-Care Condition: Unchanged Additional Instructions: Take medication as needed and indicated. Using cane for assistance in ambulating if needed. Follow-up with orthopedic clinic appointment as scheduled. Return otherwise as needed or if worsening. Prescriptions: New hydrocodone-acetaminophen 5-325 mg tablet 1 tab PO Q4-6H PRN (Reason: pain) Qty: 20 0RF No Action nifedipine 30 mg tablet extended release 24hr 30 mg PO DAILY atorvastatin 40 mg tablet 40 mg PO DAILY pantoprazole 40 mg tablet,delayed release (DR/EC) 40 mg PO DAILY metoprolol succinate 100 mg tablet extended release 24 hr 100 mg PO BID losartan 25 mg tablet 25 mg PO DAILY Eliquis 5 mg tablet 5 mg PO BID Follow Up/Referrals: Keron Murry MD [Primary Care Provider, Family Practice] Stand Alone Forms: [facility] Info Instructions
[2025-05-09 14:34] VITALS: BP 154/113; PULSE 68; RESP 18; TEMP 36.1; O2SAT 99
== END 2025-05-09 14:44 | disposition home or self-care (01) ==
PROVIDERS: Emergency Provider Emergency Medicine Emergency Medical Services; PCP Family Medicine
DX: M25.552 Pain in left hip (principal); M25.572 Pain in left ankle and joints of left foot
CPT/HCPCS: 73502; 73610; 99283; 99284